=== PATIENT | female | born 1990 | race Caucasian/White ===

== ENCOUNTER 2019-08-29 23:57 | Emergency (ER) | payer MEDICAID, SELFPAY ==
[2019-08-30 00:36] VITALS: BP 94/55; PULSE 78; RESP 16; TEMP 36.6; O2SAT 96
--- NOTE | 2019-08-30 00:36 | ED_ITS ---
HPI - Headache General: Stated Complaint: MIGRAINE Time Seen by Provider: 08/30/19 00:36 Source: patient Mode of arrival: ambulatory Limitations: no limitations History of Present Illness: HPI Narrative: Patient is a 28-year-old female who presents to ED today with complaints of a migraine that began in the middle of the night. Patient states she has a history of migraine headaches. She reports nausea and vomiting x3. She has not had any fever/chills or recent illness. She states the pain is worse with light and sound. MD elicited complaint: headache and migraine Onset (ago): hour(s) Location: frontal Exacerbating factors: light and noise Relieving factors: nothing Context: occurred at rest Associated symptoms: Reports no associated symptoms; Deny chest pain, confusion, fever(s), lightheadedness, malaise, nausea, rash, syncope or vomiting Treatments prior to arrival: none Review of Systems Const: Denies: fever, chills, body aches, change in appetite, change in weight, fatigue or malaise Eyes: Reports: photophobia; Denies: change in vision, blurry vision or eye discharge ENMT: Denies: throat pain, enlarged tonsils or painful swallowing Card: Denies: chest pain, palpitations, irregular heart rhythm, lightheadedness, syncope or shortness of breath on exertion Resp: Denies: shortness of breath, productive cough or pain on inspiration GI: Denies: abdominal pain, nausea, vomiting, heartburn/indigestion or diarrhea : Denies: painful urination Musc: Denies: neck pain, back pain or joint pain Skin/Breast: Denies: rash Neuro: Reports: headache; Denies: numbness in extremities, weakness in extremities, changes in sensation, lack of coordination, frequent falls, dizziness, vertigo, confusion, slurred speech or seizure-like activity PFS ED PFSH: Social History Smoking and tobacco status: current every day smoker Alcohol intake: never Physical Exam Const: COMMON NORMALS: no apparent distress, oriented x3, no limitations, alert and well nourished HENMT: COMMON NORMALS: normocephalic and head/scalp atraumatic HEAD & SCALP: normocephalic and atraumatic MOUTH: other (Poor dentition) Eye: COMMON NORMALS: PERRL and EOMs intact bilaterally GENERAL EYE: normal appearance of both eyes PUPIL: Yes PERRL Neck/C-Spine: COMMON NORMALS: full ROM, no lymphadenopathy, supple and no meningeal signs Chest: COMMONS NORMALS: inspection of chest normal Resp: COMMON NORMALS: normal respiratory effort and clear to auscultation bilaterally AUSCULTATION: clear to auscultation bilaterally Cardio: COMMON NORMALS: regular rate and regular rhythm RATE: regular rate RHYTHM: regular rhythm GI: COMMON NORMALS: normal to inspection, nondistended, normoactive bowel sounds, soft to palpation, non-tender, no hepatosplenomegaly and no masses PALPATION: Yes soft and Yes no hepatosplenomegaly : COMMON NORMALS: Yes no CVA tenderness BLADDER/KIDNEY EXAM: Yes no CVA tenderness Back/Pelvis: COMMON NORMALS: no CVA tenderness and thoracic and lumbar spine normal to inspection Extremity: COMMON NORMALS: normal to inspection Neuro: WENDY COMA SCALE: document GCS findings [place] coma scale eye opening: Spontaneous Wendy coma scale verbal response: Orientated [place] coma scale motor response: Obey commands Wendy coma scale total score: 15 COMMON NORMALS: oriented x3, CN's II-XII intact bilaterally, moves all extremities, no focal motor deficits, no sensory deficits noted and gait normal SENSORIUM/ORIENTATION: Yes alert MENINGEAL SIGNS: Yes no meningeal signs SPEECH: speech normal GAIT: Yes normal gait Skin: COMMON NORMALS: no rashes or lesions noted GENERAL SKIN EXAM: no rashes or lesions noted MDM - Headache MDM Narrative: Medical decision making narrative: pt sleeping comfortably in NAD Discharge Plan Discharge Patient Disposition: Home, Self-Care Clinical Impression: Migraine Qualifiers: Migraine type: without aura Status migrainosus presence: without status migrainosus Intractability: not intractable Qualified Code(s): G43.009 - Migraine without aura, not intractable, without status migrainosus Condition: Stable Prescriptions: No Action No Known Home Medications RF: 0 Referrals: Daysi Hernandez MD [Primary Care Provider] - Discharge Diet: Usual diet Discharge Activity: Increase activity as tolerated Patient Instructions: Headache - Migraine (Adult), Migraine Headache (ED) Coding Level of Care Code ED Soaping Department Supervisor for Chg Fwd Exam Comprehensive
[2019-08-30] MEDS: dexamethasone 10 mg/mL INJ 6 MG IV (01:39)
[2019-08-30] MEDS: sodium chloride 0.9% 1,000 ML 999 ML IV (01:39)
[2019-08-30] MEDS: ondansetron 2 mg/ML SDV 2 mL 4 MG IVP (01:39)
[2019-08-30] MEDS: diphenhydrAMINE 50 mg/mL SDV 1mL IVP (01:40)
[2019-08-30] MEDS: ketorolac 60 mg/2 mL INJ 30 MG IVP (01:40)
[2019-08-30] MEDS: metoclopramide 5 mg/mL SDV 2 mL 10 MG IVP (03:09)
[2019-08-30 03:33] VITALS: BP 94/55; PULSE 78; RESP 16; O2SAT 96
== END 2019-08-30 03:34 | disposition home or self-care (01) ==
PROVIDERS: Emergency Provider Physician Assistant; Family Provider Family Medicine; PCP Family Medicine
DX: G43.009 Migraine without aura, not intractable, without status migrainosus (principal); F17.210 Nicotine dependence, cigarettes, uncomplicated
CPT/HCPCS: 12345; 96361; 96374; 96375; 99281; 99283; J1100; J1200; J1885; J2405; J2765; J7030

== ENCOUNTER 2019-11-08 14:52 | Emergency (ER) | payer MEDICAID, SELFPAY ==
[2019-11-08 15:01] VITALS: BP 113/60; PULSE 100; RESP 17; TEMP 36.9; O2SAT 98; BMI 26.5
[2019-11-11 09:20] LABS: Quest SARS-CoV-2 RNA NOT DETECTED (NOT DETECTED)
== END 2019-11-08 16:16 | disposition left against medical advice (07) ==
LOC: ER 15:01
PROVIDERS: Emergency Provider Nurse Practitioner Family; PCP Family Medicine
DX: Z53.21 Procedure and treatment not carried out due to patient leaving prior to being seen by health care provider (principal)
CPT/HCPCS: 87635; 99281

== ENCOUNTER 2020-11-06 21:25 | Emergency (ER) | payer MEDICAID, SELFPAY ==
[2020-11-06 21:34] VITALS: PULSE 100; RESP 18; TEMP 37.1; O2SAT 100; BMI 28.3
--- NOTE | 2020-11-06 21:54 | ED_ITS ---
HPI - General Adult General: Chief complaint: Fever Stated complaint: x4 days feeling unwell Time Seen by Provider: 11/06/20 21:29 Source: patient Mode of arrival: ambulatory Limitations: no limitations History of Present Illness: HPI narrative: Patient is a 29-year-old female who presents to ED today stating she feels flu-misael . She tells me over the last 3 to 4 days she has had low-grade fevers (highest temperature measured was 100.8) and a lack of appetite. She has not had nausea or vomiting however has experienced early satiety. She has had normal bowel movements. She does complain of some intermittent upper abdominal pains that worsen with eating. She has not had any URI symptoms. No COVID exposure. Previous abdominal surgeries include a partial hysterectomy and appendectomy. Onset (ago): day(s) Severity: moderate Pain Consistency: intermittent Relieving factors: none Exacerbating factors: eating Associated symptoms: Reports malaise; Deny chest pain, dyspnea, headache(s), nausea, rash or vomiting Review of Systems Const: Reports: fever(s) (low grade 100.8), chills, body aches, change in appetite, fatigue and malaise Eyes: Denies: change in vision Card: Denies: chest pain Resp: Denies: dyspnea, productive cough, non-productive cough or chest congestion GI: Reports: abdominal pain and early satiety; Denies: nausea, vomiting, hematemesis, coffee ground emesis, heartburn, diarrhea, constipation, rectal swelling, change in stool character or melena : Denies: flank pain, difficulty voiding, dysuria, urinary frequency or urinary urgency Musc: Denies: neck pain or back pain Skin/Breast: Denies: rash Neuro: Denies: headache(s), numbness in extremities, weakness in extremities, sensory changes or dizziness PFSH ED PFSH: Surgical History (Updated 11/06/20 @ 23:47 by CHRIS Desai) Hx of appendectomy Hx of hysterectomy Family History Denies family history of Diabetes Dementia Cancer Hypertension Social History Smoking and tobacco status: current every day smoker Alcohol intake: never Physical Exam Const: COMMON NORMALS: no acute distress, average body habitus, patient oriented x3, no limitations, healthy appearing, alert and well nourished GENERAL APPEARANCE: cooperative ORIENTATION/CONSCIOUSNESS: Yes awake, Yes oriented to person, Yes oriented to place and Yes oriented to time HENMT: COMMON NORMALS: normocephalic and atraumatic HEAD & SCALP: normal to inspection, normocephalic and atraumatic FACE & SINUS: normal facial exam TEETH & GINGIVA: Yes poor dentition THROAT: posterior oropharynx normal Eye: COMMON NORMALS: Equal, round and reactive pupils present and EOMs intact bilaterally GENERAL EYE: appearance normal, both eyes and all related structures PUPIL: Yes Equal, round and reactive pupils present Neck/C-Spine: COMMON NORMALS: full ROM, no lymphadenopathy and no meningeal signs Resp: COMMON NORMALS: normal respiratory effort and clear to auscultation bilaterally AUSCULTATION: clear to auscultation bilaterally Cardio: COMMON NORMALS: regular rate and regular rhythm RATE: regular rate RHYTHM: regular rhythm GI: COMMON NORMALS: Normal to inspection, nondistended, normoactive bowel sounds present, Soft to palpation, No hepatosplenomegaly present and no masses INSPECTION: Yes normal to inspection PALPATION: Yes Soft to palpation, Yes Tenderness to palpation present (GI) (mild throughout upper abdomen) and Yes No hepatosplenomegaly present : COMMON NORMALS: Yes no CVA tenderness BLADDER/KIDNEY EXAM: Yes no CVA tenderness Back/Pelvis: COMMON NORMALS: no CVA tenderness, thoracic and lumbar spine normal to inspection, no thoracic nor lumbar tenderness and thoraco-lumbar ROM normal Extremity: COMMON NORMALS: normal to inspection and full ROM GENERAL: Yes normal exam except as noted Neuro: REJI COMA SCALE: document GCS findings [place] coma scale eye opening: Spontaneous Reji coma scale verbal response: Orientated Reji coma scale motor response: Obey commands Reji coma scale total score: 15 COMMON NORMALS: patient oriented x3, moves all extremities, no focal motor deficits and no sensory deficits noted SENSORIUM/ORIENTATION: Yes alert, Yes oriented to person, Yes oriented to place and Yes oriented to time MENINGEAL SIGNS: Yes no meningeal signs Skin: COMMON NORMALS: no rashes or lesions noted GENERAL SKIN EXAM: no rashes or lesions noted Course Vital Signs: Vital signs: Vital Signs Temperature 98.7 F 11/06/20 21:34 Pulse Rate 90 11/06/20 23:52 Respiratory Rate 18 05/13/21 21:34 Blood Pressure 103/54 11/06/20 23:52 Pulse Oximetry 99 11/06/20 23:52 MDM - General Adult MDM Narrative: Medical decision making narrative: Patient's vital signs are stable. Her labs showing some minor elevations to her LFTs. Lipase is normal. No cholelithiasis or cholecystitis noted on ultrasound. Labs are otherwise non-c oncerning. UA has hematuria but does not overall look infected. She has no complaints of flank pain. Her right kidney looks normal on ultrasound. She clinically does not appear ill or toxic appearing. Her flu and COVID are negative. Told her viral infections can sometimes cause transient elevations to LFTs although she could also have some biliary colic. No recent tick bites. At this time recommend conservative management with strict return to ED precautions given regarding worsening abdominal pain, fevers, vomiting, flank pain, or any other concerns she might have. Recommend follow-up with PCP next week for reevaluation. Lab Data: Labs: Lab Results 11/06/20 11/06/20 11/06/20 Range/Units 21:50 21:50 22:24 WBC (4.0-10.0) 10^3/ uL RBC (4.1-5.3) 10^6/u L Hgb (11.5-15.3) g/dL Hct (37.0-47.0) % MCV (81-99) fL MCH (28.0-34.0) pg MCHC (30.0-36.0) g/dL RDW (12.1-15.1) % Plt Count (130-400) 10^3/c mm MPV (7.4-10.4) fL Neut % (Auto) % Lymph % (Auto) % [place] % (Auto) % Eos % (Auto) % Baso % (Auto) % Neut # (Auto) (1.8-7.7) 10^3/u L Lymph # (Auto) (0.8-4.8) 10^3/u L [place] # (Auto) (0.2-0.9) 10^3/u L Eos # (Auto) (0.0-0.8) 10^3/u L Baso # (Auto) (0.0-0.1) 10^3/u L Nucleated RBC % (a uto) % Nucleated RBCs # /100WBC Sodium Potassium Chloride Carbon Dioxide Anion Gap BUN Creatinine GFR Calculation Glucose Calculated Osmolal ity Calcium Total Bilirubin AST ALT Alkaline Phosphata se Total Protein Albumin Globulin Lipase HCG, Qual (Negative) Urine Color Dark yellow (Yellow) Urine Appearance Hazy A (CLEAR) Urine pH 7 (5-7) Ur Specific Gravit y 1.015 (1.005-1.030) Urine Protein Neg (Negative) Urine Glucose (UA) Norm (Normal) Urine Ketones Negative (Negative) Urine Blood 3+ H (Negative) Urine Nitrate Negative (Negative) Urine Bilirubin Neg (Negative) Urine Urobilinogen 4+ H (Negative) mg/dL Ur Leukocyte Johanna ase Negative (Negative) Urine RBC 10-15 H (0-2) /hpf Urine WBC 5-10 H (0-5) /hpf Ur Squamous Epith Cells 0-4 H (0-5) /hpf Amorphous Sediment Not Reportable Urine Bacteria 1+ H (NONE) /hpf Urine Mucus 1+ /hpf Influenza Type A A g Negative (Negative) Influenza Type B A g Negative (Negative) SARS-CoV-2 Ag (Rap id) Negative (Negative) 11/06/20 11/06/20 11/06/20 Range/Units 22:38 22:38 22:38 WBC 4.3 (4.0-10.0) 10^3/ uL RBC 4.81 (4.1-5.3) 10^6/u L Hgb 13.1 (11.5-15.3) g/dL Hct 40.1 (37.0-47.0) % MCV 83.4 (81-99) fL MCH 27.2 L (28.0-34.0) pg MCHC 32.7 (30.0-36.0) g/dL RDW 13.2 (12.1-15.1) % Plt Count 178 (130-400) 10^3/c mm MPV 10.7 H (7.4-10.4) fL Neut % (Auto) 63.3 % Lymph % (Auto) 27.2 % [place] % (Auto) 5.3 % Eos % (Auto) 3.0 % Baso % (Auto) 0.7 % Neut # (Auto) 2.72 (1.8-7.7) 10^3/u L Lymph # (Auto) 1.2 (0.8-4.8) 10^3/u L [place] # (Auto) 0.2 (0.2-0.9) 10^3/u L Eos # (Auto) 0.1 (0.0-0.8) 10^3/u L Baso # (Auto) 0.0 (0.0-0.1) 10^3/u L Nucleated RBC % (a uto) 0 % Nucleated RBCs # 0.0 /100WBC Sodium Cancelled Potassium Cancelled Chloride Cancelled Carbon Dioxide Cancelled Anion Gap Cancelled BUN Cancelled Creatinine Cancelled GFR Calculation Cancelled Glucose Cancelled Calculated Osmolal ity Cancelled Calcium Cancelled Total Bilirubin Cancelled AST Cancelled ALT Cancelled Alkaline Phosphata se Cancelled Total Protein Cancelled Albumin Cancelled Globulin Cancelled Lipase Cancelled HCG, Qual Negative (Negative) Urine Color (Yellow) Urine Appearance (CLEAR) Urine pH (5-7) Ur Specific Gravit y (1.005-1.030) Urine Protein (Negative) Urine Glucose (UA) (Normal) Urine Ketones (Negative) Urine Blood (Negative) Urine Nitrate (Negative) Urine Bilirubin (Negative) Urine Urobilinogen (Negative) mg/dL Ur Leukocyte Johanna ase (Negative) Urine RBC (0-2) /hpf Urine WBC (0-5) /hpf Ur Squamous Epith Cells (0-5) /hpf Amorphous Sediment Urine Bacteria (NONE) /hpf Urine Mucus /hpf Influenza Type A A g (Negative) Influenza Type B A g (Negative) SARS-CoV-2 Ag (Rap id) (Negative) 11/06/20 Range/Units 23:05 WBC (4.0-10.0) 10^3/ uL RBC (4.1-5.3) 10^6/u L Hgb (11.5-15.3) g/dL Hct (37.0-47.0) % MCV (81-99) fL MCH (28.0-34.0) pg MCHC (30.0-36.0) g/dL RDW (12.1-15.1) % Plt Count (130-400) 10^3/c mm MPV (7.4-10.4) fL Neut % (Auto) % Lymph % (Auto) % [place] % (Auto) % Eos % (Auto) % Baso % (Auto) % Neut # (Auto) (1.8-7.7) 10^3/u L Lymph # (Auto) (0.8-4.8) 10^3/u L [place] # (Auto) (0.2-0.9) 10^3/u L Eos # (Auto) (0.0-0.8) 10^3/u L Baso # (Auto) (0.0-0.1) 10^3/u L Nucleated RBC % (a uto) % Nucleated RBCs # /100WBC Sodium 136 Potassium 4.0 Chloride 102 Carbon Dioxide 27 Anion Gap 11.0 BUN 9 Creatinine 0.5 GFR Calculation 145.9 H Glucose 100 Calculated Osmolal ity 281 L Calcium 8.6 Total Bilirubin 0.6 AST 33 H ALT 56 H Alkaline Phosphata se 114 H Total Protein 6.7 Albumin 4.5 Globulin 2.2 Lipase 21 HCG, Qual (Negative) Urine Color (Yellow) Urine Appearance (CLEAR) Urine pH (5-7) Ur Specific Gravit y (1.005-1.030) Urine Protein (Negative) Urine Glucose (UA) (Normal) Urine Ketones (Negative) Urine Blood (Negative) Urine Nitrate (Negative) Urine Bilirubin (Negative) Urine Urobilinogen (Negative) mg/dL Ur Leukocyte Johanna ase (Negative) Urine RBC (0-2) /hpf Urine WBC (0-5) /hpf Ur Squamous Epith Cells (0-5) /hpf Amorphous Sediment Urine Bacteria (NONE) /hpf Urine Mucus /hpf Influenza Type A A g (Negative) Influenza Type B A g (Negative) SARS-CoV-2 Ag (Rap id) (Negative) Imaging Data^: CXR: Radiologist's impression: [address] [address] XRay Report Signed Patient: Dayanna Pires Unit #: [id number] : 1990 Acc t#:[id number] Age/Sex: 29 / F ADM Date: 11/06/20 Loc: ER Room/Bed: Attending Dr: Ordering Provider/Ordering MD: Iris Arshad Date of Service: 11/06/20 Procedure(s): XR chest 1V portable [id number] Accession Number(s): [id number] Report Number: [id number] PROCEDURE INFORMATION: Exam: XR Chest Exam date and time: 11/06/2020 10:00 PM Age: 29 years old Clinical indication: Fever and other: Body aches; Patient HX: Fever, body aches x4 days; Additional info: Body aches, fevers TECHNIQUE: Imaging protocol: XR of the chest. Views: 1 view. COMPARISON: No relevant prior studies available. FINDINGS: Lungs: Unremarkable. No consolidation. Pleural spaces: Unremarkable. No pleural effusion. No pneumothorax. Heart/Mediastinum: Unremarkable. No cardiomegaly. Bones/joints: Unremarkable. XR/XR chest 1V portable [id number] IMPRESSION: No acute findings. Dictated By: Aron Lyman MD Signed By: Aron Lyman MD Signed Date/Time: 11/06/202228 DD/ 27 US gallbladder: Radiologist's impression: [address] [address] Ultrasound Report Signed Patient: Dayanna Pires Unit #: [id number] : 1990 Age/Sex: 29 / F ADM Date: 11/06/20 Loc: ER Room/Bed: Attending Dr: Ordering Provider/Ordering MD: Iris Arshad Date of Service: 11/07/20 Procedure(s): US gall bladder 05997 Accession Number(s): [id number] Report Number: [id number] PROCEDURE INFORMATION: Exam: US Abdomen, Limited; Right Upper Quadrant Exam date and time: 11/07/2020 12:38 AM Age: 29 years old Clinical indication: Abdominal pain; Acute; Prior surgery; Surgery date: 6+ months; Surgery type: Appendix; Additional info: Ruq pain, elevated lfts TECHNIQUE: Imaging protocol: US abdomen. Real time ultrasound with image documentation. Limited exam focused on the right upper quadrant. COMPARISON: CT abdomen pelvis w con* [id number] 05/25/2015 10:39 PM FINDINGS: Liver: Normal. No masses. Gallbladder: The gallbladder is contracted. There is mild gallbladder wall thickening although this is likely secondary to the nondistended gallbladder. Common bile duct: Normal. No stones. No dilation. Pancreas: Visualized pancreas is unremarkable. Right kidney: Normal. No mass. No hydronephrosis. US/US gall bladder [id number] IMPRESSION: There are no acute abdominal findings. Dictated By: Aron Lyman MD Signed By: Aron Lyman MD Signed Date/Time: 11/07/20121 DD/ 9 Discharge Plan Discharge Patient Disposition: Home Clinical Impression: Viral infection, Biliary colic Condition: Stable Prescriptions: No Action azithromycin 250 mg tablet See Rx Instructions PO .COMPLEX Qty: 6 RF: 0 Discharge Orders: Discharge ED (Routine); Ordered 11/07/20 Ordered By: Iris Arshad Referrals: Daysi Hernandez MD [Primary Care Provider] - Patient Instructions: Abdominal Pain (ED) Activity Restrictions/Additional Instructions: As discussed you may follow-up with your primary care provider in 3 to 5 days if symptoms persist. Please return to the emergency department for worsening or uncontrollable fevers, severe abdominal pain, repetitive episodes of vomiting or diarrhea, or any other concerns you may have. I hope you begin to feel better soon. Coding Level of Care Code ED Cellars Supervisor for Chg Fwd Exam Comprehensive
--- NOTE | 2020-11-06 21:58 | XRR_ITS ---
PROCEDURE INFORMATION: Exam: XR Chest Exam date and time: 11/06/2020 10:00 PM Age: 29 years old Clinical indication: Fever and other: Body aches; Patient HX: Fever, body aches x4 days; Additional info: Body aches, fevers TECHNIQUE: Imaging protocol: XR of the chest. Views: 1 view. COMPARISON: No relevant prior studies available. FINDINGS: Lungs: Unremarkable. No consolidation. Pleural spaces: Unremarkable. No pleural effusion. No pneumothorax. Heart/Mediastinum: Unremarkable. No cardiomegaly. Bones/joints: Unremarkable. XR/XR chest 1V portable [id number] IMPRESSION: No acute findings.
[2020-11-06 22:48] LABS: Basophils % 0.7 %; Eosinophils # 0.1 10^3/uL (0.0-0.8); Hematocrit 40.1 % (37.0-47.0); Hemoglobin 13.1 g/dL (11.5-15.3); Lymphocytes # 1.2 10^3/uL (0.8-4.8); Lymphocytes % 27.2 %; Mean Corpuscular HGB Conc 32.7 g/dL (30.0-36.0); Mean Corpuscular Hemoglobin 27.2 pg (28.0-34.0); Mean Corpuscular Volume 83.4 fL (81-99); Mean Platelet Volume 10.7 fL (7.4-10.4); Monocytes # 0.2 10^3/uL (0.2-0.9); Monocytes % 5.3 %; Neutrophils # 2.72 10^3/uL (1.8-7.7); Neutrophils % 63.3 %; Nucleated Red Blood Cells % 0 %; Platelet Count 178 10^3/cmm (130-400); Red Blood Count 4.81 10^6/uL (4.1-5.3); Red Cell Distribution Width 13.2 % (12.1-15.1); White Blood Count 4.3 10^3/uL (4.0-10.0)
[2020-11-06 22:55] LABS: HCG, Serum Qual Negative (Negative)
[2020-11-06 23:04] LABS: Glucose Urine UA Norm (Normal); Ketones Urine Negative (Negative); Protein Urine Neg (Negative); Specific Gravity, Urine 1.015 (1.005-1.030); Urine Appearance Hazy (CLEAR); Urine Color Dark Yellow (Yellow); pH Urine 7 (5-7)
[2020-11-06 23:05] LABS: Add Urine Microscopic? YES; Bilirubin Urine Neg (Negative); Blood Urine 3+ (Negative); Leukocyte Esterase Urine Negative (Negative); Nitrate Urine Negative (Negative); Urobilinogen Urine 4+ mg/dL (Negative)
[2020-11-06 23:06] LABS: Squamous Epithelial Cell Urine 0-4 /hpf (0-5)
[2020-11-06 23:07] LABS: Add Urine Culture? No; Bacteria Urine 1+ /hpf; Mucus Urine 1+ /hpf
[2020-11-06 23:21] LABS: Influenza A by IFA Negative (Negative); Influenza B by IFA Negative (Negative); SARS Covid-2 Antigen Negative (Negative)
[2020-11-06 23:23] LABS: Slide Review Slide Review Perform
[2020-11-06 23:27] LABS: Alanine Aminotransferase 56 U/L (0-33); Albumin Level 4.5 g/dL (3.5-5.2); Alkaline Phosphatase 114 IU/L (35-105); Aspartate Amino Transferase 33 U/L (0-32); Blood Urea Nitrogen 9 mg/dL (6-20); Calcium 8.6 mg/dL (8.5-10.5); Carbon Dioxide 27 mmol/L (22-29); Chloride 102 mmol/L (98-107); Creatinine Clr Calc Pharmacy 158.4818; Globulin 2.2 g/dL (1.3-4.6); Glomerular Filtration Rate 145.9 mL/min (90-130); Glucose 100 mg/dL (65-115); Lipase 21 U/L (13-60); Osmolality Calculated 281 mOsm/kg (285-295); Sodium 136 mmol/L (136-145); Total Bilirubin 0.6 mg/dL (0.15-1.2); Total Protein 6.7 g/dL (6.6-8.7)
[2020-11-06 23:52] VITALS: BP 103/54; PULSE 90; O2SAT 99
--- NOTE | 2020-11-07 23:39 | USR_ITS ---
PROCEDURE INFORMATION: Exam: US Abdomen, Limited; Right Upper Quadrant Exam date and time: 11/07/2020 12:38 AM Age: 29 years old Clinical indication: Abdominal pain; Acute; Prior surgery; Surgery date: 6+ months; Surgery type: Appendix; Additional info: Ruq pain, elevated lfts TECHNIQUE: Imaging protocol: US abdomen. Real time ultrasound with image documentation. Limited exam focused on the right upper quadrant. COMPARISON: CT abdomen pelvis w con* [id number] 05/25/2015 10:39 PM FINDINGS: Liver: Normal. No masses. Gallbladder: The gallbladder is contracted. There is mild gallbladder wall thickening although this is likely secondary to the nondistended gallbladder. Common bile duct: Normal. No stones. No dilation. Pancreas: Visualized pancreas is unremarkable. Right kidney: Normal. No mass. No hydronephrosis. US/US gall bladder [id number] IMPRESSION: There are no acute abdominal findings.
== END 2020-11-07 01:02 | disposition home or self-care (01) ==
PROVIDERS: Emergency Provider Physician Assistant; PCP Family Medicine
DX: B34.9 Viral infection, unspecified (principal); K80.50 Calculus of bile duct without cholangitis or cholecystitis without obstruction; F17.210 Nicotine dependence, cigarettes, uncomplicated
CPT/HCPCS: 36415; 71045; 76705; 80053; 81001; 83690; 84703; 85025; 87426; 87804; 99283

== ENCOUNTER 2020-11-21 08:35 | Outpatient (CLI) | payer MEDICAID, SELFPAY ==
--- NOTE | 2020-11-21 08:46 | CTR_ITS ---
PROCEDURE INFORMATION: Exam: CT Abdomen And Pelvis With Contrast Exam date and time: 11/21/2020 9:00 AM Age: 30 years old Clinical indication: Abnormal findings; Abnormal radiologic finding of the abdomen; Prior surgery; Surgery date: 6+ months; Surgery type: Appy, hyst; Patient HX: Ruq mass seen on u/s; Additional info: Abd mass ruq TECHNIQUE: Imaging protocol: Computed tomography of the abdomen and pelvis with contrast. Radiation optimization: All CT scans at this facility use at least one of these dose optimization techniques: automated exposure control; mA and/or kV adjustment per patient size (includes targeted exams where dose is matched to clinical indication); or iterative reconstruction. Contrast material: OMNI 300; Contrast volume: 95 ml; Contrast route: INTRAVENOUS (IV); Other contrast: Oral, Omni 300 20ml, 20ml in 450ml water; COMPARISON: 1. CT abdomen pelvis w con* [id number] 05/25/2015 10:39 PM 2. US gall bladder [id number] 11/07/2020 12:48:38 AM RADIATION DOSE METRICS: Total DLP (mGy-cm): 1313.5 FINDINGS: Liver: The liver is homogeneous and is not enlarged. Gallbladder and bile ducts: No calcified gallstones, gallbladder mass, gallbladder wall thickening, or pericholecystic inflammation. No biliary ductal dilation. Pancreas: No pancreatic mass. No peripancreatic inflammation. No pancreatic ductal dilation. Spleen: Calcified granulomas in an enlarged spleen. Adrenal glands: No adrenal mass. Kidneys and ureters: No hydronephrosis, nephrolithiasis, or renal mass. Stomach and bowel: No bowel obstruction, colitis or diverticulitis. Appendix: Possible prior appendectomy. Intraperitoneal space: Trace fluid in the cul-de-sac likely physiologic given the patient's age and gender. Vasculature: No abdominal aortic aneurysm. The mesenteric arteries are patent. The mesenteric, portal, and hepatic veins are patent. Lymph nodes: Scattered small mesenteric lymph nodes. Urinary bladder: No urinary bladder calculus or wall thickening. Reproductive: There is a right ovarian corpus luteal cyst. Interval hysterectomy. Bones/joints: No acute ossesous abnormality. Soft tissues: Tiny umbilical hernia containing fat. CT/CT abdomen pelvis w con* [id number] IMPRESSION: Splenomegaly, which represents an interval change since the prior comparison CT ABDOMEN/PELVIS 05/25/2015. Radiation Dose CTDIVOL = (mGy): DLP = 1313.5 (mGy-cm)
[2020-11-21] MEDS: iohexol 300 mg/mL 50 mL Btl PO (09:06)
[2020-11-21] MEDS: iohexol 300 mg/mL 100 mL Btl IV (10:22)
== END 2020-11-21 08:36 | disposition home or self-care (01) ==
LOC: RAD 08:37
PROVIDERS: PCP Family Medicine; Visit Provider Family Medicine
DX: R19.01 Right upper quadrant abdominal swelling, mass and lump (principal); R16.1 Splenomegaly, not elsewhere classified
CPT/HCPCS: 74177

== ENCOUNTER 2020-12-25 09:37 | Outpatient (CLI) | payer MEDICAID, SELFPAY ==
[2020-12-25 12:07] LABS: Basophils % 0.8 %; Eosinophils # 0.2 10^3/uL (0.0-0.8); Eosinophils % 5.8 %; Hematocrit 42.6 % (37.0-47.0); Hemoglobin 13.6 g/dL (11.5-15.3); Lymphocytes # 1.5 10^3/uL (0.8-4.8); Lymphocytes % 37.8 %; Mean Corpuscular HGB Conc 31.9 g/dL (30.0-36.0); Mean Corpuscular Volume 84.5 fL (81-99); Mean Platelet Volume 11.2 fL (7.4-10.4); Monocytes # 0.2 10^3/uL (0.2-0.9); Neutrophils % 50.1 %; Nucleated Red Blood Cells % 0 %; Platelet Count 208 10^3/cmm (130-400); Red Blood Count 5.04 10^6/uL (4.1-5.3)
[2020-12-25 12:15] LABS: LAB Peripheral Smear Sent for Review
[2020-12-25 12:45] LABS: Erythrocyte Sedimentation Rate 4 mm/hr (0-15)
[2020-12-25 12:57] LABS: Alanine Aminotransferase 23 U/L (0-33); Albumin Level 4.4 g/dL (3.5-5.2); Alkaline Phosphatase 59 IU/L (35-105); Anion Gap 10.2 (5-19); Aspartate Amino Transferase 21 U/L (0-32); Blood Urea Nitrogen 10 mg/dL (6-20); C Reactive Protein 0.5 mg/L (0.0-4.9); Calcium 8.8 mg/dL (8.5-10.5); Carbon Dioxide 27 mmol/L (22-29); Chloride 103 mmol/L (98-107); Glomerular Filtration Rate 144.9 mL/min (90-130); Glucose 81 mg/dL (65-115); Lactate Dehydrogenase 186 U/L (135-214); Osmolality Calculated 280 mOsm/kg (285-295); Potassium 4.2 mmol/L (3.5-5.1); Sodium 136 mmol/L (136-145); Thyroid Stimulating Hormone 0.64 uIU/mL (0.27-4.20); Total Bilirubin 0.5 mg/dL (0.15-1.2); Total Protein 6.4 g/dL (6.6-8.7); Vitamin B12 316 pg/mL (232-1245)
[2020-12-25 13:41] LABS: Hepatitis A Antibody IgM Non-Reactive (Nonreactive); Hepatitis B Core AB, Total Non-Reactive (Nonreactive); Hepatitis B Surface AB 83.1 (11.5-1000); Hepatitis C Virus Antibody Non-Reactive (Nonreactive)
--- NOTE | 2020-12-25 14:20 | ONC CON_ITS ---
Dr. Dsouza New Patient Note Patient: Dayanna Pires Unit #: [id number]: 1990 Dicatated By: Roshan Dsouza M.D.Date of Visit: Dec 25, 2020 Onc MED New Patient/Consult Referring Physician: Daysi Hernandez Chief Complaint: Splenomegaly. History of Present Illness: This is a 30-year-old woman with CT evidence of an enlarged spleen. On 11/06/2020 she was seen in the emergency room with a 4-day history of flulike symptoms, including low-grade fever, anorexia, and abdominal pain. The COVID-19 rapid test was negative, and she also tested negative for influenza a and B. Her liver enzymes were noted to be slightly elevated. Her gallbladder ultrasound showed mild gallbladder wall thickening felt to be likely due to the gallbladder being contracted. There were no acute abdominal findings noted. She had a follow-up visit with Dr. Hernandez on 11/10/2020. She continued to have right upper quadrant abdominal pain and a repeat gallbladder ultrasound on 11/12/2020 showed normal gallbladder. That study did show a hypoechoic masslike structure adjacent to the right lobe of the liver measuring 4.6 x 6.6 x 3.3 cm, etiology of which was uncertain. On further evaluation with CT abdomen/pelvis on 11/21/2020 the liver had a homogeneous appearance and it was not enlarged. There was no evidence of gallstones, gallbladder mass, gallbladder wall thickening, or pericholecystic inflammation, and there was no biliary ductal dilatation noted. The pancreas appeared normal. There were no other acute findings, but the spleen was noted to have shown interval enlargement compared to a prior CT from April 2015. She is seen now in regard to the enlarged spleen. In reviewing her records in [facility], she previously had longstanding issues with pelvic pain which eventually culminated in a vaginal hysterectomy/bilateral salpingectomy in November 2017. She had undergone diagnostic laparoscopy on 2 occasions prior to that. Her records it indicated diagnosis of endometriosis, but there was no evidence of that or other pathology in the hysterectomy specimen. Her medical illnesses have otherwise been limited to chronic migraine and chronic anxiety. She had been prescribed omeprazole by Dr. Mary rubin in October. She has not been on any other prescription medication. In the interim, she had seen Dr. Nayak. He did not feel there was any evidence of gallbladder disease. She says she feels good generally, but she has continued to have pain in her right upper quadrant area which typically starts about 10 to 15 minutes after eating. She describes it as a stabbing pain lasting 10 to 15 minutes. She sometimes has nausea, she has had no other associated GI symptoms. She does complain that she does not have any energy and that she feels tired all the time. She is doing some housework and she is caring for 3 children. Her ECOG score is 1. She says her appetite has gone downhill she has had a weight loss of about 5 pounds. She has not had fever. Recently she has been having some hot flashes and sweating at night. She has no shortness of breath, cough, or chest pain. She has no complaints. She has no significant joint or bone pain. She has headaches at least 2 or 3 times a week, but that is chronic. She has been managing it with ibuprofen or Excedrin. She does not complain of dizziness, and she has no focal neurologic symptoms. She does have some anxiety and depression. Lately she has been having difficulty sleeping. Past Medical History: Her medical history includes anxiety and migraine headaches. Past Surgical History: Her surgical/procedural history includes appendectomy, diagnostic laparoscopy in 2008 and in 2015, laparoscopic assisted vaginal hysterectomy and bilateral salpingectomy in 2018, and tubal ligation in 2012. Medications: This patient reports not taking external medications. Allergies: Penicillins Social History: Ms. Pires has a life partner. She has history of smoking 1 pack of cigarettes daily for 13 years. She has had some alcohol use in the past, but never heavy and none in the past 5 to 6 years. She denies illicit drug use. Family History: Both parents are living. She does not know her father's medical history. Her mother has diabetes and epilepsy and she has been treated for breast cancer. One brother is in good health. Her paternal grandmother and several paternal uncles had lung cancer. Review Of Symptoms: Constitutional - She generally feels fatigued. She has no energy, first noticed about a month ago. She reports that her activity level has decreased significantly over the past month. She is able to do some very light housework and is the primary caregiver to her children. Her appetite has decreased and her weight is down some. No fevers. She has some hot flashes and sweating at night. ECOG score is 1, Eyes - No change in vision, ENMT - No hearing loss or tinnitus. No sinus congestion/drainage. No mouth sores. No sore throat or difficulty swallowing, Hematologic/Lymphatic - No abnormal bruising or bleeding, Respiratory - No shortness of breath. No cough. No pleuritic pain or hemoptysis, Cardiovascular - No angina pain. No palpitations, Gastrointestinal - She sometimes has nausea. No heartburn or acid reflux. No diarrhea or constipation. No blood in the stool or black stools. She has abdominal pain after eating, mainly in the right upper quadrant area, Genitourinary (F) - No dysuria or hematuria. No urinary frequency. No urgency or incontinence, Musculoskeletal - No joint or bone pain, Integumentary - No skin eruption, Neurologic - She has chronic headaches that are adequately managed with Excedrine. No dizziness. No numbness or tingling. No other focal neurologic symptoms, Psychiatric - She has anxiety and depression. She does not sleep well. Vital Signs: Performed on Dec 25, 2020 10:10: 0, 27.05, 1.77 sq.m, 64 in, 98 %, 73 /min, 16 /min, 103/67 mm(hg), 97.6 F (LOW), and 157.6 lbs (HIGH). Physical Examination: Constitutional - She appears to be in good general health, Eyes - Sclerae nonicteric. Conjunctivae clear, ENMT - No lesions noted in the oral cavity, Neck - No mass or thyromegaly, Hematologic/Lymphatic - No cervical, clavicular, or axillary adenopathy, Respiratory - Lungs are clear with good air movement bilaterally, Cardiovascular - Heart rhythm is regular. There is no murmur, gallop, or rub noted, Abdomen - Soft. Her pain localizes to the medial right upper quadrant area, but she is not tender. Liver is not enlarged. Spleen is not palpable. There is no abdominal mass or ascites noted and there is no inguinal adenopathy, Back/Spine - No spine or CVA tenderness noted, Extremities - No edema. Pedal pulses are palpable bilaterally, Integumentary - No rashes. No suspicious skin lesions noted, Neurologic - No focal neurologic deficits noted. Problem List: 1. Patient with CT evidence of interval enlargement of the spleen compared to her prior CT from April 2015. The cause/clinical significance is uncertain. 2. She has been having postprandial abdominal pain in the right upper quadrant. A specific cause has not been determined. 3. Chronic migraine. 4. Chronic anxiety. Problems Addressed with this Encounter and Plan: Patient with CT evidence of interval enlargement of the spleen compared to her prior CT from April 2015. The cause/clinical significance is uncertain. The main concern would be the possibility of underlying occult liver disease. An underlying primary hematologic disorder is another consideration, though I do not see any evidence for that clinically. She will have additional laboratory studies today to include CBC, comprehensive metabolic profile, sed rate and CRP level, LDH level, TSH level, and a comprehensive hepatitis profile. I also will review the blood smear and I will review the CT and ultrasound studies with the radiologist. She will have further evaluation as indicated. Signed By: Roshan Dsouza M.D. <<Signature on File>>
[2020-12-25 15:11] LABS: Hepatitis B Surface Antigen Non-Reactive (Nonreactive)
[2020-12-25 16:45] LABS: Iron 74 ug/dL (37-145); Percent Saturation 25.5 % (20-50); Total Iron Binding Capacity 290 mcg/dl; Unsaturated Iron Binding 216 ug/dL (112-347)
== END 2020-12-25 09:38 | disposition home or self-care (01) ==
PROVIDERS: PCP Family Medicine; Visit Provider Internal Medicine Medical Oncology
DX: R16.1 Splenomegaly, not elsewhere classified (principal); R10.11 Right upper quadrant pain; G43.709 Chronic migraine without aura, not intractable, without status migrainosus; F41.9 Anxiety disorder, unspecified; Z79.899 Other long term (current) drug therapy
CPT/HCPCS: 36415; 80053; 82607; 83540; 83550; 83615; 84443; 85025; 85651; 86140; 86705; 86706; 86709; 86803; 87340; 99204

== ENCOUNTER 2021-11-12 12:57 | Emergency (ER) | payer MEDICAID, SELFPAY ==
[2021-11-12 13:01] VITALS: BP 111/76; PULSE 90; RESP 18; TEMP 36.6; O2SAT 99
[2021-11-12 13:35] VITALS: BP 111/76; PULSE 90; RESP 18; TEMP 36.6; O2SAT 99
--- NOTE | 2021-11-12 13:40 | ED_ITS ---
HPI - Back Pain/Injury General: Chief Complaint: Back Pain/Injury Stated Complaint: Back pain Time Seen by Provider: 11/12/21 13:15 Source: patient Mode of arrival: ambulatory Limitations: no limitations History of Present Illness: 30-year-old female presents emergency room with complaint of low back pain. It does not radiate into her legs. she works standing for long periods of time in same position. She noticesor that if she is able to get around and walk some the discomfort is better, but if she has to stand at the [employer] where she works for long period of time is much worse. MD elicited complaint: back pain Pertinent past history: prior back pain Onset (ago): day(s) Timing: constant Severity: moderate Quality: dull, aching and throbbing Location: lumbar spine Radiation: none Relieving factors: none Associated symptoms: Reports difficulty walking; Deny abdominal pain, arthralgias, chills, change in bowel habits, dysuria, fatigue, fecal incontinence, fever(s), hematuria, myalgias, nausea, numbness, syncope, tingling/numbness/burning, urinary frequency, urinary urgency, vomiting or weakness Review of Systems Const: Denies: fever(s), chills or fatigue Card: Denies: syncope GI: Denies: abdominal pain, nausea, vomiting, fecal incontinence or change in bowel habits : Denies: dysuria, urinary urgency or hematuria Neuro: Reports: difficulty walking [facility] ED PFSH: Surgical History Hx of appendectomy Hx of hysterectomy Family History Denies family history of Diabetes Dementia Cancer Hypertension Social History Smoking and tobacco status: current every day smoker Alcohol intake: never Physical Exam Const: COMMON NORMALS: no acute distress GENERAL APPEARANCE: cooperative and comfortable ORIENTATION/CONSCIOUSNESS: Yes awake, Yes oriented to person, Yes oriented to place and Yes oriented to time HENMT: COMMON NORMALS: normocephalic, atraumatic and hearing grossly normal bilaterally HEAD & SCALP: normocephalic and atraumatic Neck/C-Spine: COMMON NORMALS: no JVD Resp: COMMON NORMALS: normal respiratory effort, No retractions, No use of accessory muscles and clear to auscultation bilaterally AUSCULTATION: clear to auscultation bilaterally Cardio: COMMON NORMALS: no JVD, regular rate, regular rhythm and No murmurs present (Cardio) RATE: regular rate RHYTHM: regular rhythm Extremity: COMMON NORMALS: normal to inspection, capillary refill normal, no clubbing, cyanosis or edema, no calf tenderness and no pedal edema Neuro: SENSORIUM/ORIENTATION: Yes oriented to person, Yes oriented to place and Yes oriented to time SENSORY EXAM: No sensory level loss detected MOTOR EXAM: 5/5 motor strength present throughout DEEP TENDON REFLEXES: Right patellar reflex intensity grade: 2+ and Left patellar reflex intensity grade: 2+ Skin: COMMON NORMALS: no rashes or lesions noted GENERAL SKIN EXAM: no rashes or lesions noted Course Vital Signs: Vital signs: Vital Signs Temperature 97.8 F 11/12/21 13:35 Pulse Rate 90 11/12/21 13:35 Respiratory Rate 18 11/12/21 13:35 Blood Pressure 111/76 11/12/21 13:35 Pulse Oximetry 99 11/12/21 13:35 MDM - Back Pain/Injury Medical Decision Making Steroid taper diclofenac tizanidine as needed work restrictions recommend sitting for 15 minutes and an hour if she can sit [place] rest I think that will help she should also use an antifatigue mat. Follow-up with primary care consider PT if persists Medical Records I reviewed the patient's medical records. Labs I reviewed the patient's lab results. Discharge Plan Discharge Patient Disposition: Home Clinical Impression: Strain of lumbar region Condition: Stable Prescriptions: New prednisone 20 mg tablet 20 mg PO TID Qty: 15 0RF Rx Instructions: 1 p.o. 3 times daily x3 days, 1 p.o. twice daily x2 days, 1 p.o. daily x2 days diclofenac sodium 75 mg tablet,delayed release (DR/EC) 75 mg PO Q12H PRN (Reason: pain) Qty: 20 0RF tizanidine 4 mg capsule 4 mg PO Q6H PRN (Reason: muscle spasticity) Qty: 20 0RF Rx Instructions: do not exceed 3 doses per 24 hrs No Action azithromycin 250 mg tablet See Rx Instructions PO .COMPLEX Qty: 6 0RF Rx Instructions: take 500 mg today (day 1), then 250 mg for 4 days (days 2-5) PO Discharge Orders: Discharge ED (Routine); Ordered 11/12/21 Ordered By: Giorgio Recio Referrals: Daysi Hernandez MD [Primary Care Provider] - Discharge Diet: Usual diet Discharge Activity: Limit activity as instructed Patient Instructions: Opioid Safety Activity Restrictions/Additional Instructions: Follow-up with primary care if symptoms persist. 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
[2021-11-12] MEDS: orphenadrine 30 mg/mL Inj 2 mL 60 MG IVP (14:21)
[2021-11-12] MEDS: dexamethasone 10 mg/mL INJ IVP (14:21)
[2021-11-12] MEDS: ketorolac 30 mg/mL INJ IVP (14:21)
[2021-11-12] MEDS: morphine 4 mg/mL SDV 1 mL IVP (14:21)
[2021-11-12 14:34] VITALS: BP 111/76; PULSE 90; RESP 18; TEMP 36.6; O2SAT 99
== END 2021-11-12 14:36 | disposition home or self-care (01) ==
PROVIDERS: Emergency Provider Family Medicine; PCP Family Medicine
DX: S39.012A Strain of muscle, fascia and tendon of lower back, initial encounter (principal); X58.XXXA Exposure to other specified factors, initial encounter; F17.200 Nicotine dependence, unspecified, uncomplicated
CPT/HCPCS: 96374; 96375; 99284; J1100; J1885; J2270; J2360

== ENCOUNTER 2022-03-23 09:13 | Emergency (ER) | payer MEDICAID, SELFPAY ==
[2022-03-23 09:18] VITALS: BP 127/66; PULSE 100; RESP 18; TEMP 36.9; O2SAT 98; BMI 28.3
[2022-03-23 09:27] VITALS: BP 127/66; PULSE 75; O2SAT 98
--- NOTE | 2022-03-23 09:29 | PC.NURSE ---
LKWT 0900 this morning. Mother noticed speech being slurred and advised the patient to come to ED.
--- NOTE | 2022-03-23 09:37 | CT_ITS ---
WS: [id number] CT NECK WITH CONTRAST HISTORY: dysphagia TECHNIQUE: Contiguous 2 mm axial images are performed through the neck with intravenous contrast. Sag ittal and coronal reformats are also submitted. All CT scans at [facility] use at least one o f these dose optimization techniques: automated exposure control; mA and/or kV adjustment per patient size (includes targeted exams where dose is matched to clinical indication); or iterative reconstruc tion. CONTRAST: CONTRAST: Omnipaque 350; 95 mL IV. DLP: 1071.35 mGy.cm COMPARISON: None available. Significant motion artifact due to swallowing during this examination. The nasopharyngeal, oropharyng eal and laryngeal soft tissues are limited by this swallowing artifact. No obvious stenosis or narrow ing of the airway. Mildly prominent nasopharyngeal soft tissue is symmetric bilaterally. Tongue base is limited by the motion artifact. No midline shift of structures. Limited evaluation of the torus tubarius and fossa of Rosenmuller and parapharyngeal fat by motion se condary to swallowing. Small hypervascular 9 mm RIGHT level IIa lymph node. There are additional smaller lymph nodes along t he cervical chains. Mildly hypervascular 11 mm lymph node RIGHT paratracheal region. Thyroid gland and salivary glands are normally enhancing with no masses. No osseous abnormalities. Visualized portions of the skull base demonstrate no abnormalities. Orbits and globes are within norm al limits. No soft tissue masses. Visualized paranasal sinuses and mastoid air cells are normal. Lung apices are clear. CT/CT neck w con* [id number] IMPRESSION: 1. Motion artifact due to swallowing in the upper airway. 2. Mildly prominent nasopharyngeal soft tissue. May be related to an infection or allergies. 3. Minimally prominent, hypervascular RIGHT level IIa and RIGHT paratracheal l ymph nodes. These may be reactive. No laryngeal mass.
--- NOTE | 2022-03-23 09:38 | CT_ITS ---
WS: [id number] CT HEAD NONCONTRAST HISTORY: Symptoms of Acute Stroke TECHNIQUE: Contiguous axial imaging performed through the brain in 3.0 mm imaging. Bone and soft tiss ue windows. Sagittal and coronal reformats reviewed. All CT scans at [facility] use at least one of these dose optimization techniques: automated exposure control; mA and/or kV adjustment per pa tient size (includes targeted exams where dose is matched to clinical indication); or iterative recon struction. DLP: 1071.35 mGy.cm COMPARISON: None available. No acute intracranial hemorrhage, midline shift or mass effect. No atrophy or prior infarcts or herniation. Ventricles: Normal size with no hydrocephalus. Paranasal sinuses: As visualized are clear. Mastoid air cells: Well pneumatized. Calvarium and scalp: Skull is intact with no soft tissue edema or swelling. CT/CT head wo con* [id number] IMPRESSION: Negative head CT.
--- NOTE | 2022-03-23 09:40 | ED_ITS ---
HPI - Neuro Symptoms/Deficit General: Chief Complaint: Neuro Symptoms/Deficit Stated Complaint: Possible stroke Time Seen by Provider: 03/23/22 09:34 Source: patient Mode of arrival: ambulatory History of Present Illness: 31-year-old female who presents emergency room with difficulty speaking. She had difficulty with enunciating her words. No other weakness no other signs denies headache no trauma no fall she denies any sore throat she feels like it is a little bit difficult to swallow she has very poor dentition. Her son is at the bedside she is quick to offer that he is homeschooled via computer. This symptom onset was at around 9:00 this morning while she was on the phone with her mother. She denies any other recent illness no previous history of stroke. No other family members besides her son are currently present. Onset (ago): minute(s) (40) Location: speech History of same: No Severity: mild Relieving factors: none Exacerbating factors: none Context: gradual onset Associated symptoms: Deny chest pain, cough, diaphoresis, fevers/chills, headache(s), anorexia, malaise, nausea, seizures, short of breath, syncope, tingling, vertigo, vomiting or weakness Treatments Prior to Arrival: none Review of Systems Const: Denies: malaise or diaphoresis ENMT: Denies: throat pain, ear or mastoid pain, nasal discharge or nasal congestion Card: Denies: chest pain or syncope Resp: Denies: dyspnea, productive cough or non-productive cough GI: Denies: abdominal pain, nausea or vomiting : Denies: flank pain, difficulty voiding, dysuria, urinary frequency or urinary urgency Skin/Breast: Denies: rash or pruritus Neuro: Denies: headache(s), numbness in extremities, weakness in extremities or vertigo PFSH ED PFSH: Surgical History Hx of appendectomy Hx of hysterectomy Family History Denies family history of Diabetes Dementia Cancer Hypertension Social History Smoking and tobacco status: current every day smoker Alcohol intake: never NIH stroke score NIHSS: Level Of Consciousness - 1a: 0 Level Of Consciousness Questions - 1b: Both Correct Level Of Consciousness Commands - 1c: Both Correct Best Gaze - 2: Normal Visual Blackman - 3: No Visual Loss Facial Palsy - 4: Normal Motor Arm Right - 5: No Drift Motor Arm Left - 5: No Drift Motor Leg Right - 6: No Drift Motor Leg Left - 6: No Drift Limb Ataxia - 7: Absent Sensory - 8: Normal Best Language - 9: No Aphasia Dysarthia - 10: Mild/Moderate Dysarthia Extinction And Inattention - 11: 0 Score: Total Score: 1 Physical Exam Const: GENERAL APPEARANCE: cooperative and comfortable ORIENTATION/CONSCIOUSNESS: Yes awake, Yes oriented to person, Yes oriented to place and Yes oriented to time HENMT: COMMON NORMALS: normocephalic, atraumatic and hearing grossly normal b ilaterally HEAD & SCALP: normocephalic and atraumatic Resp: COMMON NORMALS: normal respiratory effort, No retractions, No use of accessory muscles and clear to auscultation bilaterally AUSCULTATION: clear to auscultation bilaterally Cardio: COMMON NORMALS: regular rate, regular rhythm and No murmurs present (Cardio) RATE: regular rate RHYTHM: regular rhythm GI: COMMON NORMALS: Soft to palpation and No hepatosplenomegaly present AUSCULTATION: Yes normoactive bowel sounds PALPATION: Yes Soft to palpation, No Tenderness to palpation present (GI), No Guarding due to palpation present (GI) and Yes No hepatosplenomegaly present Extremity: COMMON NORMALS: normal to inspection, capillary refill normal, no clubbing, cyanosis or edema, no calf tenderness and no pedal edema Neuro: SENSORIUM/ORIENTATION: Yes oriented to person, Yes oriented to place and Yes oriented to time Skin: COMMON NORMALS: no rashes or lesions noted GENERAL SKIN EXAM: no rashes or lesions noted Course Vital Signs: Vital signs: Vital Signs Temperature 98.5 F 03/23/22 09:18 Pulse Rate 71 03/23/22 11:30 Respiratory Rate 18 03/23/22 09:18 Blood Pressure 90/46 03/23/22 11:30 Pulse Oximetry 99 03/23/22 11:30 Oxygen Delivery Me thod 03/23/22 11:30 MDM - Neuro Symptoms/Deficit Medical Decision Making Patient has upper respiratory symptoms CT of the head and CT of the neck are negative. Think a lot of this speech difficulty is due to her upper respiratory symptoms. Otherwise neurologically she is completely intact. Reviewed findings and reviewed labs as found in the chart discussed with the patient will discharge home return if is further problems. Medical Records I reviewed the patient's medical records. Lab Data I reviewed the patient's lab results. : 03/23/22 10:10 03/23/22 10:[address] 03/23/22 09:37 IMPRESSION: 1. Motion artifact due to swallowing in the upper airway. 2. Mildly prominent nasopharyngeal soft tissue. May be related to an infection or allergies. 3. Minimally prominent, hypervascular RIGHT level IIa and RIGHT paratracheal lymph nodes. These may be reactive. No laryngeal mass. Head CT 03/23/22 09:38 IMPRESSION: Negative head CT. Laboratory Results WBC 4.0 10^3/uL (4.0-10.0) 03/23/22 10:10 RBC 4.18 10^6/uL (4.1-5.3) 03/23/22 10:10 Hgb 11.5 g/dL (11.5-15.3) 03/23/22 10:10 Hct 34.8 % (37.0-47.0) L 03/23/22 10:10 MCV 83.3 fl (81-99) 03/23/22 10:10 MCH 27.5 pg (28.0-34.0) L 03/23/22 10:10 MCHC 33.0 g/dL (30.0-36.0) 03/23/22 10:10 RDW 13.0 % (12.1-15.1) 03/23/22 10:10 Plt Count 211 10^3/cmm (130-400) 03/23/22 10:10 MPV 10.4 fL (7.4-10.4) 03/23/22 10:10 Neut % (Auto) 59.9 % 03/23/22 10:10 Lymph % (Auto) 30.7 % 03/23/22 10:10 [place] % (Auto) 5.3 % 03/23/22 10:10 Eos % (Auto) 3.0 % 03/23/22 10:10 Baso % (Auto) 0.8 % 03/23/22 10:10 Neut # (Auto) 2.38 10^3/uL (1.8-7.7) 03/23/22 10:10 Lymph # (Auto) 1.2 10^3/uL (0.8-4.8) 03/23/22 10:10 [place] # (Auto) 0.2 10^3/uL (0.2-0.9) 03/23/22 10:10 Eos # (Auto) 0.1 10^3/uL (0.0-0.8) 03/23/22 10:10 Baso # (Auto) 0.0 10^3/uL (0.0-0.1) 03/23/22 10:10 Nucleated RBC % (auto) 0 % 03/23/22 10:10 Nucleated RBCs # 0.0 /100WBC 03/23/22 10:10 Sodium 135 mmol/L (136-145) L 03/23/22 10:10 Potassium 3.9 mmol/L (3.5-5.1) 03/23/22 10:10 Chloride 103 mmol/L (98-107) 03/23/22 10:10 Carbon Dioxide 24 mmol/L (22-29) 03/23/22 10:10 Anion Gap 11.9 (5-19) 03/23/22 10:10 BUN 5 mg/dL (6-20) L 03/23/22 10:10 Creatinine 0.5 mg/dL (0.5-0.9) 03/23/22 10:10 GFR Calculation 143.9 mL/min (90-130) H 03/23/22 10:10 Glucose 86 mg/dL (65-115) 03/23/22 10:10 Calculated Osmolality 277 mOsm/kg (285-295) L 03/23/22 10:10 Calcium 8.4 mg/dL (8.5-10.5) L 03/23/22 10:10 Total Bilirubin 0.4 mg/dL (0.15-1.2) 03/23/22 10:10 AST 15 U/L (0-32) 03/23/22 10:10 ALT 13 U/L (0-33) 03/23/22 10:10 Alkaline Phosphatase 54 U/L (35-105) 03/23/22 10:10 Total Protein 5.6 g/dL (6.6-8.7) L 03/23/22 10:10 Albumin 3.8 g/dL (3.5-5.2) 03/23/22 10:10 Globulin 1.8 g/dL (1.3-4.6) 03/23/22 10:10 Urine Color Yellow (Yellow) 03/23/22 10:30 Urine Appearance Sl hazy (CLEAR) 03/23/22 10:30 Urine pH 7 (5-7) 03/23/22 10:30 Ur Specific [place] 1.005 (1.005-1.030) 03/23/22 10:30 Urine Protein Neg (Negative) 03/23/22 10:30 Urine Glucose (UA) Norm (Normal) 03/23/22 10:30 Urine Ketones Negative (Negative) 03/23/22 10:30 Urine Blood Neg (Negative) 03/23/22 10:30 Urine Nitrate Positive (Negative) H 03/23/22 10:30 Urine Bilirubin Neg (Negative) 03/23/22 10:30 Urine Urobilinogen Norm mg/dL (Negative) 03/23/22 10:30 Ur Leukocyte Esterase Negative (Negative) 03/23/22 10:30 Urine RBC 0-4 /hpf (0-2) H 03/23/22 10:30 Urine WBC 0-4 /hpf (0-5) H 03/23/22 10:30 Ur Squamous Epith Cells 25-40 /hpf (0-5) H 03/23/22 10:30 Amorphous Sediment Not Reportable 03/23/22 10:30 Urine Bacteria 4+ /hpf (NONE) H 03/23/22 10:30 Urine Opiates Screen Negative ng/mL (Negative) 03/23/22 10:30 Ur Barbiturates Screen Negative ng/mL (Negative) 03/23/22 10:30 Ur Phencyclidine Scrn Negative ng/mL (Negative) 03/23/22 10:30 Ur Amphetamines Screen Negative ng/mL (Negative) 03/23/22 10:30 U Benzodiazepines Scrn Negative ng/mL (Negative) 03/23/22 10:30 Urine Cocaine Screen Negative ng/mL (Negative) 03/23/22 10:30 U Marijuana (THC) Screen Negative ng/mL (Negative) 03/23/22 10:30 Discharge Plan Discharge Patient Disposition: Home Clinical Impression: Pharyngitis Condition: Stable Prescriptions: New prednisone 20 mg tablet 20 mg PO TID Qty: 15 0RF Rx Instructions: 1 p.o. 3 times daily x3 days, 1 p.o. twice daily x2 days, 1 p.o. daily x2 days Discharge Orders: Discharge ED (Routine); Ordered 03/23/22 Ordered By: Giorgio Recio Referrals: Daysi Hernandez MD [Primary Care Provider] - Discharge Diet: Usual diet Discharge Activity: Increase activity as tolerated Patient Instructions: Opioid Safety, Pain Management Activity Restrictions/Additional Instructions: Follow-up with primary care doctor if not improving over the next week. Start the steroids and antibiotics today. Coding Level of Care Code ED Post Doctoral Fellow for Chg Fwd Exam Detailed
[2022-03-23] MEDS: iohexol 350 mg/mL 100 mL Btl IV (10:10)
--- NOTE | 2022-03-23 10:12 | ECG_ITS ---
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 Measurements Intervals Rentz Rate: 64 P: 44 CA: 172 QRS: 37 QRSD: 85 T: 53 QT: 390 QTc: 402 Interpretive Statements SINUS RHYTHM WITH SINUS ARRHYTHMIA LOW QRS VOLTAGE IN PRECORDIAL LEADS [QRS DEFLECTION < 1.0 mV IN CHEST LEADS] SEPTAL MYOCARDIAL INFARCTION , OF INDETERMINATE AGE [40+ ms Q WAVE IN V1/V2] No previous ECG available for comparison Electronically Signed On 03-23-2022 12:17:43 CDT by Staci Li M.D. [id number]
[2022-03-23 10:25] LABS: Basophils % 0.8 %; Eosinophils # 0.1 10^3/uL (0.0-0.8); Hematocrit 34.8 % (37.0-47.0); Hemoglobin 11.5 g/dL (11.5-15.3); Lymphocytes # 1.2 10^3/uL (0.8-4.8); Lymphocytes % 30.7 %; Mean Corpuscular Hemoglobin 27.5 pg (28.0-34.0); Mean Corpuscular Volume 83.3 fl (81-99); Mean Platelet Volume 10.4 fL (7.4-10.4); Monocytes # 0.2 10^3/uL (0.2-0.9); Monocytes % 5.3 %; Neutrophils # 2.38 10^3/uL (1.8-7.7); Neutrophils % 59.9 %; Nucleated Red Blood Cells % 0 %; Platelet Count 211 10^3/cmm (130-400); Red Blood Count 4.18 10^6/uL (4.1-5.3)
[2022-03-23 10:27] VITALS: BP 113/66; PULSE 71; O2SAT 98
[2022-03-23 10:41] LABS: Alanine Aminotransferase 13 U/L (0-33); Albumin Level 3.8 g/dL (3.5-5.2); Alkaline Phosphatase 54 U/L (35-105); Anion Gap 11.9 (5-19); Aspartate Amino Transferase 15 U/L (0-32); Blood Urea Nitrogen 5 mg/dL (6-20); Calcium 8.4 mg/dL (8.5-10.5); Carbon Dioxide 24 mmol/L (22-29); Chloride 103 mmol/L (98-107); Creatinine Clr Calc Pharmacy 155.6263; Globulin 1.8 g/dL (1.3-4.6); Glomerular Filtration Rate 143.9 mL/min (90-130); Glucose 86 mg/dL (65-115); Osmolality Calculated 277 mOsm/kg (285-295); Potassium 3.9 mmol/L (3.5-5.1); Sodium 135 mmol/L (136-145); Total Bilirubin 0.4 mg/dL (0.15-1.2); Total Protein 5.6 g/dL (6.6-8.7)
[2022-03-23 10:59] LABS: Add Urine Culture? No; Add Urine Microscopic? YES; Bacteria Urine 4+ /hpf; Bilirubin Urine Neg (Negative); Blood Urine Neg (Negative); Glucose Urine UA Norm (Normal); Ketones Urine Negative (Negative); Leukocyte Esterase Urine Negative (Negative); Nitrate Urine Positive (Negative); Protein Urine Neg (Negative); RBC Urine 0-4 /hpf (0-2); Specific Gravity, Urine 1.005 (1.005-1.030); Squamous Epithelial Cell Urine 25-40 /hpf (0-5); Urine Appearance SL Hazy (CLEAR); Urine Color Yellow (Yellow); Urobilinogen Urine Norm (Negative); WBC Urine 0-4 /hpf (0-5); pH Urine 7 (5-7)
[2022-03-23 11:00] VITALS: PULSE 73; O2SAT 99
[2022-03-23 11:02] LABS: Amphetamines Screen Urine Negative (Negative); Barbiturates Screen Urine Negative (Negative); Benzodiazepines Screen Urine Negative (Negative); Cocaine Screen Urine Negative (Negative); Opiate Screen Urine Negative (Negative); PCP Screen Urine Negative (Negative); THC Screen Urine Negative (Negative)
[2022-03-23 11:30] VITALS: BP 90/46; PULSE 71; O2SAT 99
== END 2022-03-23 12:10 | disposition home or self-care (01) ==
PROVIDERS: Emergency Provider Family Medicine; PCP Family Medicine
DX: J02.9 Acute pharyngitis, unspecified (principal); F17.200 Nicotine dependence, unspecified, uncomplicated
CPT/HCPCS: 70450; 70491; 80053; 80306; 81001; 85025; 93005; 99285; Q9967

== ENCOUNTER 2022-04-27 14:09 | Emergency (ER) | payer MEDICAID, SELFPAY ==
[2022-04-27 14:11] VITALS: BP 117/77; PULSE 92; RESP 16; TEMP 36.6; O2SAT 98; BMI 18.8
[2022-04-27 14:21] VITALS: BP 106/73; PULSE 82; RESP 16; TEMP 37.4; O2SAT 97; BMI 28.3
--- NOTE | 2022-04-27 14:49 | PC.NURSE ---
First triage documented on wrong patient.
--- NOTE | 2022-04-27 15:14 | W.ED.ABDPA2 ---
HPI - Abdominal Pain General: Chief Complaint: Abdominal Pain Stated Complaint: Hernandez sent for upper abd pain Time Seen by Provider: 04/27/22 14:17 History of Present Illness: Patient is a 31-year-old female comes to the ED with upper abdominal pain. Symptoms started yesterday. She describes the pain as a burning type pain in her stomach. Symptoms worsen after she eats and if she lays flat. Denies any fever, chills, chest pain, nausea/vomiting, bladder or bowel symptoms. Associated Symptoms: Denies chills, constipation, diarrhea, dysuria, fever(s), hematochezia, hematuria, nausea and vomiting Review of Systems Const: Denies: fever(s), chills or fatigue Eyes: Denies: change in vision or eye discomfort ENMT: Denies: throat pain, odynophagia, nasal discharge or nasal congestion Card: Denies: chest pain, palpitations, edema, swelling of feet/ankles, dyspnea on exertion or orthopnea Resp: Denies: dyspnea, productive cough or non-productive cough GI: Reports: abdominal pain (Epigastric pain); Denies: nausea, vomiting, diarrhea, constipation or hematochezia : Denies: flank pain, dysuria or hematuria Musc: Denies: neck pain, back pain or extremity swelling Skin/Breast: Denies: rash or new lesions Neuro: Denies: headache(s), numbness in extremities or weakness in extremities PFSH ED PFSH: Surgical History Hx of appendectomy Hx of hysterectomy Family History Denies family history of Diabetes Dementia Cancer Hypertension Social History Smoking and tobacco status: current every day smoker Alcohol intake: never Physical Exam Const: COMMON NORMALS: no acute distress, patient oriented x3, healthy appearing and alert GENERAL APPEARANCE: cooperative and comfortable HENMT: COMMON NORMALS: normocephalic HEAD & SCALP: normocephalic MOUTH: Normal oral and palatal mucosa present THROAT: posterior oropharynx normal and uvula midline Neck/C-Spine: COMMON NORMALS: supple GENERAL: Yes normal visual inspection Resp: COMMON NORMALS: normal respiratory effort, No retractions, No use of accessory muscles and clear to auscultation bilaterally AUSCULTATION: clear to auscultation bilaterally Cardio: COMMON NORMALS: regular rate, regular rhythm, S1 normal heart sound present, S2 normal heart sound present, No gallops present (Cardio), No clicks present (Cardio), No murmurs present (Cardio) and Peripheral pulses 2+ throughout RATE: regular rate RHYTHM: regular rhythm HEART SOUNDS: S1 normal heart sound present and S2 normal heart sound present PERIPHERAL PULSES: Peripheral pulses 2+ throughout GI: COMMON NORMALS: Normal to inspection, nondistended, normoactive bowel sounds present, Soft to palpation, non-tender and no masses PALPATION: Yes Soft to palpation : COMMON NORMALS: Yes no CVA tenderness BLADDER/KIDNEY EXAM: Yes no CVA tenderness Back/Pelvis: COMMON NORMALS: no CVA tenderness Extremity: COMMON NORMALS: normal to inspection Neuro: COMMON NORMALS: patient oriented x3 SENSORIUM/ORIENTATION: Yes alert GAIT: Yes Normal gait present Skin: GENERAL SKIN EXAM: dry skin Course Vital Signs: Vital signs: Vital Signs Temperature 99.3 F 04/27/22 14:21 Pulse Rate 78 04/27/22 16:14 Respiratory Rate 16 04/27/22 16:14 Blood Pressure 148/74 04/27/22 16:14 Pulse Oximetry 97 04/27/22 16:14 Oxygen Delivery Me thod 04/27/22 14:21 MDM - Abdominal Pain Medical Decision Making Patient is a 31-year-old female comes to the ED with epigastric abdominal pain. Symptoms started yesterday and she describes as a burning pain in her epigastric region. Symptoms worsen after she eats or lays flat. Denies any fevers, chest pain, nausea/vomiting or any other symptoms. Vitals are stable. Patient appears nontoxic and in no acute distress or pain. She has some mild epigastric region with tenderness but rest of exam is benign. CBC, CMP, lipase and UA were all unremarkable. She was given a GI cocktail here in the ED was wanting to do further testing on patient but she wanted to sign out AMA because she had to go pickle cutter her kids. Patient signed AMA form and she was discharged home with a prescription for some Pepcid. Return to ED precautions given. Patient understood and agreed with plan. Lab Data I reviewed the patient's lab results. : 04/27/22 15:18 04/27/22 15:18 Labs/Radiology: Laboratory Results WBC 6.5 10^3/uL (4.0-10.0) 04/27/22 15:18 RBC 4.95 10^6/uL (4.1-5.3) 04/27/22 15:18 Hgb 13.8 g/dL (11.5-15.3) 04/27/22 15:18 Hct 41.7 % (37.0-47.0) 04/27/22 15:18 MCV 84.2 fl (81-99) 04/27/22 15:18 MCH 27.9 pg (28.0-34.0) L 04/27/22 15:18 MCHC 33.1 g/dL (30.0-36.0) 04/27/22 15:18 RDW 13.3 % (12.1-15.1) 04/27/22 15:18 Plt Count 217 10^3/cmm (130-400) 04/27/22 15:18 MPV 10.6 fL (7.4-10.4) H 04/27/22 15:18 Neut % (Auto) 62.7 % 04/27/22 15:18 Lymph % (Auto) 27.9 % 04/27/22 15:18 [place] % (Auto) 5.4 % 04/27/22 15:18 Eos % (Auto) 3.1 % 04/27/22 15:18 Baso % (Auto) 0.6 % 04/27/22 15:18 Neut # (Auto) 4.06 10^3/uL (1.8-7.7) 04/27/22 15:18 Lymph # (Auto) 1.8 10^3/uL (0.8-4.8) 04/27/22 15:18 [place] # (Auto) 0.4 10^3/uL (0.2-0.9) 04/27/22 15:18 Eos # (Auto) 0.2 10^3/uL (0.0-0.8) 04/27/22 15:18 Baso # (Auto) 0.0 10^3/uL (0.0-0.1) 04/27/22 15:18 Nucleated RBC % (auto) 0 % 04/27/22 15:18 Nucleated RBCs # 0.0 /100WBC 04/27/22 15:18 Sodium 136 mmol/L (136-145) 04/27/22 15:18 Potassium 3.9 mmol/L (3.5-5.1) 04/27/22 15:18 Chloride 100 mmol/L (98-107) 04/27/22 15:18 Carbon Dioxide 26 mmol/L (22-29) 04/27/22 15:18 Anion Gap 13.9 (5-19) 04/27/22 15:18 BUN 11 mg/dL (6-20) 04/27/22 15:18 Creatinine 0.7 mg/dL (0.5-0.9) 04/27/22 15:18 GFR Calculation 97.6 mL/min (90-130) 04/27/22 15:18 Glucose 102 mg/dL (65-115) 04/27/22 15:18 Calculated Osmolality 282 mOsm/kg (285-295) L 04/27/22 15:18 Calcium 9.5 mg/dL (8.5-10.5) 04/27/22 15:18 Total Bilirubin 0.4 mg/dL (0.15-1.2) 04/27/22 15:18 AST 13 U/L (0-32) 04/27/22 15:18 ALT 19 U/L (0-33) 04/27/22 15:18 Alkaline Phosphatase 60 U/L (35-105) 04/27/22 15:18 Total Protein 6.4 g/dL (6.6-8.7) L 04/27/22 15:18 Albumin 4.3 g/dL (3.5-5.2) 04/27/22 15:18 Globulin 2.1 g/dL (1.3-4.6) 04/27/22 15:18 Lipase 20 U/L (13-60) 04/27/22 15:18 HCG, Qual Negative (Negative) 04/27/22 15:18 Urine Color Yellow (Yellow) 04/27/22 14:58 Urine Appearance Cloudy (CLEAR) A 04/27/22 14:58 Urine pH 5 (5-7) 04/27/22 14:58 Ur Specific [place] 1.025 (1.005-1.030) 04/27/22 14:58 Urine Protein Neg (Negative) 04/27/22 14:58 Urine Glucose (UA) Norm (Normal) 04/27/22 14:58 Urine Ketones Negative (Negative) 04/27/22 14:58 Urine Blood 2+ (Negative) H 04/27/22 14:58 Urine Nitrate Negative (Negative) 04/27/22 14:58 Urine Bilirubin Neg (Negative) 04/27/22 14:58 Urine Urobilinogen 1 mg/dL (Negative) H 04/27/22 14:58 Ur Leukocyte Esterase Negative (Negative) 04/27/22 14:58 Urine RBC 0-4 /hpf (0-2) H 04/27/22 14:58 Urine WBC 0-4 /hpf (0-5) H 04/27/22 14:58 Ur Squamous Epith Cells 0-4 /hpf (0-5) H 04/27/22 14:58 Amorphous Sediment Not Reportable 04/27/22 14:58 Urine Bacteria 4+ /hpf (NONE) H 04/27/22 14:58 Discharge Plan Discharge Patient Disposition: Left Against Medical Advice Clinical Impression: Gastritis Qualifiers: Gastritis type: unspecified gastritis Chronicity: unspecified Gastritis bleeding: presence of bleeding unspecified Qualified Code(s): K29.70 - Gastritis, unspecified, without bleeding Condition: Stable Prescriptions: New Pepcid 20 mg tablet 20 mg PO BID 42 Days Qty: 84 0RF Referrals: Daysi Hernandez MD [Primary Care Provider] - Discharge Diet: Regular Discharge Activity: Increase activity as tolerated Activity Restrictions/Additional Instructions: Follow-up with medical provider as directed. Take medications as prescribed. Return to the ER or your medical provider if condition worsens. Please read and understand discharge instructions. Thank you for choosing [facility] for your healthcare needs today. Please realize this is an emergency room and that we are providing you with a medical screening exam and this may not be complete and all inclusive of all the testing and or work up that you may need to determine your ailment or severity of your illness. It is very important that you follow up as instructed or that you return to the Emergency Department should you have concerns or if your condition changes or worsens in any way. Coding Level of Care Code ED Candy Maker for Ashleigh Fwd Exam Comprehensive
[2022-04-27 15:16] LABS: Urine Color Yellow (Yellow)
[2022-04-27 15:17] LABS: Add Urine Microscopic? YES; Bilirubin Urine Neg (Negative); Blood Urine 2+ (Negative); Glucose Urine UA Norm (Normal); Ketones Urine Negative (Negative); Leukocyte Esterase Urine Negative (Negative); Nitrate Urine Negative (Negative); Protein Urine Neg (Negative); Specific Gravity, Urine 1.025 (1.005-1.030); Urine Appearance Cloudy (CLEAR); Urobilinogen Urine 1 mg/dL (Negative); pH Urine 5 (5-7)
[2022-04-27 15:18] LABS: Add Urine Culture? Yes; Bacteria Urine 4+ /hpf; RBC Urine 0-4 /hpf (0-2); Squamous Epithelial Cell Urine 0-4 /hpf (0-5); WBC Urine 0-4 /hpf (0-5)
[2022-04-27 15:24] VITALS: BP 148/74; PULSE 78
[2022-04-27] MEDS: lidocaine 2% viscous 15 ML, aluminum-mag hydrox-simethicon 30 ML, sucralfate oral liq 1 GM PO (15:30)
[2022-04-27 15:35] LABS: Basophils % 0.6 %; Eosinophils # 0.2 10^3/uL (0.0-0.8); Eosinophils % 3.1 %; Hematocrit 41.7 % (37.0-47.0); Hemoglobin 13.8 g/dL (11.5-15.3); Lymphocytes # 1.8 10^3/uL (0.8-4.8); Lymphocytes % 27.9 %; Mean Corpuscular HGB Conc 33.1 g/dL (30.0-36.0); Mean Corpuscular Hemoglobin 27.9 pg (28.0-34.0); Mean Corpuscular Volume 84.2 fl (81-99); Mean Platelet Volume 10.6 fL (7.4-10.4); Monocytes # 0.4 10^3/uL (0.2-0.9); Monocytes % 5.4 %; Neutrophils # 4.06 10^3/uL (1.8-7.7); Neutrophils % 62.7 %; Nucleated Red Blood Cells % 0 %; Platelet Count 217 10^3/cmm (130-400); Red Blood Count 4.95 10^6/uL (4.1-5.3); Red Cell Distribution Width 13.3 % (12.1-15.1); White Blood Count 6.5 10^3/uL (4.0-10.0)
[2022-04-27 15:50] LABS: HCG, Serum Qual Negative (Negative)
[2022-04-27 15:55] LABS: Anion Gap 13.9 (5-19); Carbon Dioxide 26 mmol/L (22-29); Chloride 100 mmol/L (98-107); Potassium 3.9 mmol/L (3.5-5.1); Sodium 136 mmol/L (136-145)
[2022-04-27 15:56] LABS: Alanine Aminotransferase 19 U/L (0-33); Albumin Level 4.3 g/dL (3.5-5.2); Alkaline Phosphatase 60 U/L (35-105); Aspartate Amino Transferase 13 U/L (0-32); Blood Urea Nitrogen 11 mg/dL (6-20); Calcium 9.5 mg/dL (8.5-10.5); Globulin 2.1 g/dL (1.3-4.6); Glomerular Filtration Rate 97.6 mL/min (90-130); Glucose 102 mg/dL (65-115); Lipase 20 U/L (13-60); Osmolality Calculated 282 mOsm/kg (285-295); Total Bilirubin 0.4 mg/dL (0.15-1.2); Total Protein 6.4 g/dL (6.6-8.7)
[2022-04-27 16:14] VITALS: BP 148/74; PULSE 78; RESP 16; O2SAT 97
== END 2022-04-27 16:15 | disposition left against medical advice (07) ==
PROVIDERS: Emergency Provider Physician Assistant; PCP Family Medicine
DX: K29.70 Gastritis, unspecified, without bleeding (principal); Z53.21 Procedure and treatment not carried out due to patient leaving prior to being seen by health care provider; F17.210 Nicotine dependence, cigarettes, uncomplicated
CPT/HCPCS: 36415; 80053; 81001; 83690; 84703; 85025; 87077; 87086; 87186; 99283

== ENCOUNTER → 2023-12-13 16:54 | Outpatient (BNVA) | payer MEDICAID, SELFPAY | PROVIDERS: PCP Family Medicine; Visit Provider Nurse Practitioner | DX: R39.9 Unspecified symptoms and signs involving the genitourinary system (principal) | CPT/HCPCS: 81000 ==

== ENCOUNTER 2024-12-28 14:12 | Observation (INO) | payer MEDICAID, SELFPAY ==
[2024-12-28 14:17] VITALS: BP 115/79; PULSE 94; RESP 14; TEMP 36.8; O2SAT 100
--- OUTSIDE RECORDS SUMMARY | 2024-12-28 14:18 | XMS_ITS | Clinical Summary ---
Author Organization [facility] Address [address] [place]: Epic Prelude ADT [place] [id number] Care Team Providers Care Technology Specialist Name Role Phone Unavailable Primary Care Provider Unavailabl e Allergies Active Allergy Reactions Criticality Noted Date Comments Penicillins Anaphylaxis High 05/11/2017 Medications topiramate (Topamax) 25 mg tablet One tab at PM for one week, than one tab bid for one week, then one tab in AM, two tabs in PM for one week, then two tabs bid. 180 Tablet 3 01/04/2024 Active cloNIDine HCL (CATAPRES) 0.1 mg tablet Take 1 Tablet (0.1 mg) by mouth daily. 30 Tablet 1 01/16/2024 Active Active Problems No known active problems Encounters Date Type Department Care Team Description 12/18/2024 External Device Data [facility] ABSTRACTION Provider, Abstract 12/12/2024 External Device Data [facility] ABSTRACTION Provider, Abstract 11/20/2024 External Device Data [facility] ABSTRACTION Provider, Abstract 11/15/2024 External Device Data [facility] ABSTRACTION Provider, Abstract 11/14/2024 External Device Data [facility] ABSTRACTION Provider, Abstract 10/09/2024 External Device Data [facility] ABSTRACTION Provider, Abstract from Last 3 Months Family History Medical History Relation Name Comments No Known Problems Daughter Other Father Other Mother No Known Problems Son Relation Name Status Comments Daughter Father Mother Son Social History Tobacco Use Types Packs/Day Years Used Date Smoking Tobacco: Every Day Passive Smoke Exposure: Current Smokeless Tobacco: Never Tobacco Cessation:Ready to Q uit: Not Asked; Counseling Given: Not Answered Feeling Safe Answer Date Recorded Are you in a relationship wi th someone who hurts you emotionally and/or physically? 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 Gender Identity Not on file Sexual Orientation Not on file Last Filed Vital Signs Vital Sign Reading Time Taken Comments Blood Pressure 110/70 01/04/2024 10:22 AM CDT Pulse 79 01/04/2024 10:22 AM CDT Temperature 36.5 C (97.7 F) 12/10/2022 3:15 PM CDT Respiratory Rate 16 01/04/2024 10:22 AM CDT Oxygen Saturation 99% 01/04/2024 10:22 AM CDT Inhaled Oxygen Concentration - - Weight 57.7 kg (127 lb 3.2 oz) 01/04/2024 10:22 AM CDT Height 165.1 cm (5' 5 ) 01/04/2024 10:22 AM CDT Body Mass Index 21.17 01/04/2024 10:22 AM CDT Plan of Treatment Health Maintenance Due Date Last Done Comments DTAP/TDAP/TD VACCINES (5 - Tdap) 2001 03/07/1995, 10/12/1991, 07/09/1991, Additional history exists HPV/Cotest (21-29) 11/18/2011 CERVICAL CANCER SCREENING 2020 HPV/Cotest (30-65) 2020 PAP SMEAR 2020 INFLUENZA VACCINE (#1) 2025 08/12/2015 HEPATITIS B VACCINES Completed 10/27/1995, 03/25/1995, 02/14/1995 HPV VACCINES Aged Out No longer eligi ble based on patient's age to complete this topic Insurance [place] [address] [employer] MEDICAID Advance Directives For more information, please contact: [phone] * Full Code (Latest Code Status on File) Date Activated Date Inactivated Comments 12/10/2022 1:55 PM 12/10/2022 6:09 PM
--- OUTSIDE RECORDS SUMMARY | 2024-12-28 14:18 | XMS_ITS | Data Portability ---
Author Organization MALGORZATA Pablo Shaw [facility], Debbie, [facility] Address [address] [address] Assessment No assessment recorded. Plan of Treatment Reminders Order Date Submit Date Provider Last Modified By Organization Details Last Modified Time Details Appointments None recorded. Lab urinalysis, dipstick [address] ([facility]), [address] [place] [address], [address], 4 11:17:53 urinalysis, complete [address] ([facility]), [address] [place], [address], 5 17:32:42 urinalysis, complete 2023 024 [facility] ([facility]), [address] [place], [address], 4 12:42:23 culture, urine 2023 024 [employer] [facility], [address] [place] [address] 248, [address] [place], [address], 4 04:24:47 TSH, serum or plasma 2023 024 [email or web address], [address] [place] [address] 248, [address] [place], [address], 4 15:04:06 CBC 2023 024 SHANELLE [facility], [address] [facility], [address], [place], [address], 4 13:55:38 CMP, serum or plasma 2023 024 SHANELLE [facility], [address] [facility] 248, [address] [place], [address], 4 04:24:45 Referral neurologist referral - el Boyce, the other neuro in her office. 2024 025 [email or web address] 2 [facility], [address] [place], [address], 5 17:40:16 neurologist referral [email or web address] [place] [address] Neurology, [address] [place], [address], 4 13:30:10 Procedures None recorded. Surgeries None recorded. Imaging None recorded. Medication Orders Macrobid 100 mg capsule 2023 025 [facility], [address], [place], [address], 5 15:06:17 Macrobid 100 mg capsule 2023 024 [email or web address] [facility] 15, [address], [place], [address], 5 15:06:07 prednisone 20 mg tablet 2022 024 [facility], [address], [place], [address], 4 11:51:46 doxycycline hyclate 100 mg capsule 2022 024 [facility], [address], [place], [address], 11:51:44 Patient TargetsNo targets recorded. Patient InstructionsNo instructions recorded. Reason for Referral Neurologist Referral for Spa smodic movement Referring Physician: Daysi Hernandez, Family Medicine, Encounter Date: 08/18/2023 Neurologist Referral for Mot or tic disorder not Austen, the other neuro in her office. Referring Physician: Daysi Hernandez Family Medicine, Encounter Date: 08/23/2024 Results Created Date Observation Date Name Description Value Unit Range Abnormal Flag Note LastModifiedBy Organization Detail LastModifiedTime 08/18/19 24 08/18/2023 CBC WBC 4.5 x10 4.0-10 .5 Not Available [facility] [address] [facility] [address], [place], [address], 08/18/2023 13:55:38 08/18/19 24 08/18/2023 CBC RBC 4.81 x10 3.50-5 .50 Not Available [facility] [address] [facility] [address], [place], [address], 08/18/2023 13:55:38 08/18/19 24 08/18/2023 CBC HGB 13.6 g/dL 12.0-1 6.0 Not Available [facility] [address] [facility] [address], [place], [address], 08/18/2023 13:55:38 08/18/19 24 08/18/2023 CBC HCT 38.8 % 37.0-4 7.0 Not Available [facility] [address] [facility] [address], [place], [address], 08/18/2023 13:55:38 08/18/19 24 08/18/2023 CBC MCV 80.7 fL 80.0-9 9.9 Not Available [facility] [address] [facility] 1, [place], [address], 08/18/2023 13:55:38 08/18/19 24 08/18/2023 CBC MCH 28.3 pg 27.0-3 2.0 Not Available [facility] [address] [facility] 1, [place], [address], 08/18/2023 13:55:38 08/18/19 24 08/18/2023 CBC MCHC 35.1 g/dL 32.0-3 6.0 Not Available [facility] [address] [facility] 1, [place], [address], 08/18/2023 13:55:38 08/18/19 24 08/18/2023 CBC RDW 14.5 % 11.5-1 4.5 Not Available [facility] [address] [facility] 1, [place], [address], 08/18/2023 13:55:38 08/18/19 24 08/18/2023 CBC plt 218.9 x10 140.0- 451.0 Not Available [facility] [address] [facility] 1, [place], [address], 08/18/2023 13:55:38 08/18/19 24 08/18/2023 CBC lymphocytes % 34.6 % 20.0-5 0.0 Not Available [facility] [address] [facility] 1, [place], [address], 08/18/2023 13:55:38 08/18/19 24 08/18/2023 CBC granulcytes % 58.8 % 30.0-7 0.0 Not Available [facility] [address] [facility] 1, [place], [address], 08/18/2023 13:55:38 08/18/19 24 08/18/2023 CBC monocytes % 4.8 % 2.0-10 .[address] [facility] [address] [address], [place], [address], 08/18/2023 13:55:38 08/18/19 24 08/18/2023 CBC granulcytes# 2.7 x10 Not Martha ilable [facility] [address] [address], [place], [address], 08/18/2023 13:55:38 08/18/19 24 08/18/2023 CBC lymphocytes # 1.6 x10 Not Available [place] [address] [address], [place], [address], 08/18/2023 13:55:38 08/18/19 24 08/18/2023 CBC monocytes # 0.2 x10 Not Avai lable [facility] [address] [address], [place], [address], 08/18/2023 13:55:38 08/18/19 24 08/19/2023 COMPR EHENS JO ANN METAB OLIC PANEL glucose 71 mg/dL 65-99 normal Fasti ng refer ence inter negro Not Available [address] [address] [place], [address], 08/19/2023 04:24:45 08/18/19 24 08/19/2023 COMPR EHENS JO ANN METAB OLIC PANEL urea nitrogen (BUN) 7 mg/dL 7-25 normal Not Available [facility] [address] [address] [place], [address], 08/19/2023 04:24:45 08/18/19 24 08/19/2023 COMPR EHENS JO ANN METAB OLIC PANEL creatinine 0.55 mg/dL 0.50-0 .97 normal Not Available [facility] [address] [address] [place], [address], 08/19/2023 04:24:45 08/18/19 24 08/19/2023 COMPR EHENS JO ANN METAB OLIC PANEL eGFR 125 mL/mi n/1.7 3m2 > or = 60 normal Not Available [address], [address], 08/19/2023 04:24:45 08/18/19 24 08/19/2023 COMPR EHENS JO ANN METAB OLIC PANEL BUN/creatini ne ratio SEE NOTE: (calc ) 6-22 Not Repor ann marie: BUN and Creat inine are withi n refer ence range . Not Available [address], [address], 08/19/2023 04:24:45 08/18/19 24 08/19/2023 COMPR EHENS JO ANN METAB OLIC PANEL sodium 139 mmol/ L 135-14 6 normal Not Available [address], [address], 08/19/2023 04:24:45 08/18/19 24 08/19/2023 COMPR EHENS JO ANN METAB OLIC PANEL potassium 4.3 mmol/ L 3.5-5. 3 normal Not Available [address], [address], 08/19/2023 04:24:45 08/18/19 24 08/19/2023 COMPR EHENS JO ANN METAB OLIC PANEL chloride 102 mmol/ L 98-110 normal Not Available [address] [place], [address], 08/19/2023 04:24:45 08/18/19 24 08/19/2023 COMPR EHENS JO ANN METAB OLIC PANEL carbon dioxide 30 mmol/ L 20-32 normal Not Available [address], [address], 08/19/2023 04:24:45 08/18/19 24 08/19/2023 COMPR EHENS JO ANN METAB OLIC PANEL calcium 9.8 mg/dL 8.6-10 .2 normal Not Available [address], [address], 08/19/2023 04:24:45 08/18/19 24 08/19/2023 COMPR EHENS JO ANN METAB OLIC PANEL protein, total 6.8 g/dL 6.1-8. 1 normal Not Available [address], [address], 08/19/2023 04:24:45 08/18/19 24 08/19/2023 COMPR EHENS JO ANN METAB OLIC PANEL albumin 4.9 g/dL 3.6-5. 1 normal Not Available [address], [address], 08/19/2023 04:24:45 08/18/19 24 08/19/2023 COMPR EHENS JO ANN METAB OLIC PANEL globulin 1.9 g/dL_ (calc ) 1.9-3. 7 normal Not Available [address], [address], 08/19/2023 04:24:45 08/18/19 24 08/19/2023 COMPR EHENS JO ANN METAB OLIC PANEL albumin/glob ulin ratio 2.6 (calc ) 1.0-2. 5 high Not Available [address], [address], 08/19/2023 04:24:45 08/18/19 24 08/19/2023 COMPR EHENS JO ANN METAB OLIC PANEL bilirubin, total 0.5 mg/dL 0.2-1. 2 normal Not Available [address], [address], 08/19/2023 04:24:45 08/18/19 24 08/19/2023 COMPR EHENS JO ANN METAB OLIC PANEL alkaline phosphatase 53 U/L 31-125 normal Not Available [address] [address] [place], [address], 08/19/2023 04:24:45 08/18/19 24 08/19/2023 COMPR EHENS JO ANN METAB OLIC PANEL AST 16 U/L 10-30 normal Not Available [address] [address] [place], [address], 08/19/2023 04:24:45 08/18/19 24 08/19/2023 COMPR EHENS JO ANN METAB OLIC PANEL ALT 14 U/L 6-29 normal Not Available [address] [address] [place], [address], 08/19/2023 04:24:45 08/18/19 24 08/19/2023 TSH TSH 1.05 mIU/L normal Refer ence Range > or = 20 Years 0.40- 4.50 Pregn abhijit Range s First trime ster 0.26- 2.66 Secon d trime ster 0.55- 2.73 Third trime ster 0.43- 2.91 Not Available [address] [address] [place], [address], 08/19/2023 05:28:17 08/18/19 24 08/21/2023 CULTU RE, URINE , ROUTI NE culture, urine, routine SEE NOTE abnormal CULTU RE, URINE , ROUTI NE Micro Numbe r: [id number] Test Statu s: Final Speci men Sourc e: Urine , clean catch Speci men Quali ty: Adequ ate Resul t: Great er than 100,0 00 CFU/m L of Klebs iella pneum oniae K.pne umoni ae ----- ----- ----- - INT DUNCAN AMOX/ CLAVU LANAT E S <=2 AMP/S ULBAC MCKEON S 4 CEFAZ BONY NR <=4 2 CEFEP RAFAL S <=0.1 2 CEFTA ZIDIM E S <=1 CEFTR IAXON E S <=0.2 5 CIPRO FLOXA JENNY S <=0.0 6 GENTA MICIN S <=1 IMIPE NEM S <=0.2 5 LEVOF LOXAC IN S <=0.1 2 MEROP ENEM S <=0.2 5 NITRO FURAN TOIN I 64 PIP/T AZOBA CTAM S <=4 TRIME THOPR IM/FOFANA LFA S <=20 S=[place]ah cepti ble I=Int ermed iate R=Res istan t * = Not Teste d NR = Not Repor ann marie NN = See Thera py Comme nts THERA PY COMME NTS Note 1: For infec tions other than uncom plica ann marie UTI cause d by E. coli, K. pneum oniae or P. mirab ilis: Cefaz bony is resis tant if DUNCAN > or = 8 mcg/m L. (Dist ingui shing susce ptibl e versu s inter media te for isola yuliana with DUNCAN < or = 4 mcg/m L requi res addit ional testi ng.) Note 2: For uncom plica ann marie UTI cause d by E. coli, K. pneum oniae or P. mirab ilis: Cefaz bony is susce ptibl e if DUNCAN <32 mcg/m L and predi cts susce ptibl e to the oral agent s cefac sujey, cefdi ashley, cefpo doxim e, cefpr ozil, cefur oxime , cepha lexin and lorac arbef . Not Available [facility] [address] [place], [address], 08/21/2023 01:39:31 08/18/19 24 08/18/2023 urina lysis , compl ete color yellow Not Available [facility] ([facility]) [address] [place] [address], [address], 08/18/2023 12:11:39 08/18/19 24 08/18/2023 urina lysis , compl ete clarity slight ly cloudy clear abnormal Not Available [facility] ([facility]) [address] [place], [address], 08/18/2023 12:11:39 08/18/19 24 08/18/2023 urina lysis , compl ete glucose NG negati ve Not Available [facility] ([facility]) [address] [place], [address], 08/18/2023 12:11:39 08/18/19 24 08/18/2023 urina lysis , compl ete bilirubin NG negati ve Not Available [facility] ([facility]) [address] [place], [address], 08/18/2023 12:11:39 08/18/19 24 08/18/2023 urina lysis , compl ete ketones NG negati ve Not Available [facility] ([facility]) [address] [place], [address], 08/18/2023 12:11:39 08/18/19 24 08/18/2023 urina lysis , compl ete specific gravity 1.025 1.005- 1.025 Not Available [facility] ([facility]) [address] [place], [address], 08/18/2023 12:11:39 08/18/19 24 08/18/2023 urina lysis , compl ete pH 6.5 5.0-7. 0 Not Available [facility] ([facility]) [address] [place], [address], 08/18/2023 12:11:39 08/18/19 24 08/18/2023 urina lysis , compl ete protein NG Not Available [facility] ([facility]) [address] [place], [address], 08/18/2023 12:11:39 08/18/19 24 08/18/2023 urina lysis , compl ete uro 0.2 Not Available [facility] ([facility]) [address] [place], [address], 08/18/2023 12:11:39 08/18/19 24 08/18/2023 urina lysis , compl ete nitrate positi ve negati ve abnormal Not Available [facility] ([facility]) [address] [place], [address], 08/18/2023 12:11:39 08/18/19 24 08/18/2023 urina lysis , compl ete blood 1+ negati ve abnormal Not Available [facility] ([facility]) [address] [place], [address], 08/18/2023 12:11:39 08/18/19 24 08/18/2023 urina lysis , compl ete leukocytes NG negati ve Not Available [facility] ([facility]) [address] [place], [address], 08/18/2023 12:11:39 08/18/19 24 08/18/2023 urina lysis , compl ete WBC 2-3 0 Not Available [facility] ([facility]) [address] [place], [address], 08/18/2023 12:11:39 08/18/19 24 08/18/2023 urina lysis , compl ete RBC NG 0 Not Available [facility] ([facility]) [address] [place], [address], 08/18/2023 12:11:39 08/18/19 24 08/18/2023 urina lysis , compl ete epi cells 2-3 0 Not Available [facility] ([facility]) [address] [place], [address], 08/18/2023 12:11:39 08/18/19 24 08/18/2023 urina lysis , compl ete bacteria 4++++ mixed boogie abnormal Not Available [facility] ([facility]) [address] [place], [address], 08/18/2023 12:11:39 08/18/19 24 08/18/2023 urina lysis , compl ete other NG Not Available [facility] ([facility]) [address] [place], [address], 08/18/2023 12:11:39 03/13/20 24 03/13/2024 urina lysis , dipst ick Leukocytes Large Not Available [facility] ([facility]) [address] [place], [address], 03/13/2024 10:20:44 03/13/20 24 03/13/2024 urina lysis , dipst ick Nitrite positi ve Not Available [facility] ([facility]) [address] [place], [address], 03/13/2024 10:20:44 03/13/20 24 03/13/2024 urina lysis , dipst ick Urobilinogen .2 Not Available [facility] ([facility]) [address] [place], [address], 03/13/2024 10:20:44 03/13/20 24 03/13/2024 urina lysis , dipst ick Protein Negati ve Not Available [facility] ([facility]) [address] [place], [address], 03/13/2024 10:20:44 03/13/20 24 03/13/2024 urina lysis , dipst ick pH 6.5 Not Available [facility] ([facility]) [address] [place], [address], 03/13/2024 10:20:44 03/13/20 24 03/13/2024 urina lysis , dipst ick Blood Modera te Not Available [facility] ([facility]) [address] [place], [address], 03/13/2024 10:20:44 03/13/20 24 03/13/2024 urina lysis , dipst ick Specific [place] 1.025 Not Available [facility] ( [facility]) [address] [place], [address], 03/13/2024 10:20:44 03/13/20 24 03/13/2024 urina lysis , dipst ick Ketone Negati ve Not Available [facility] ([facility]) [address] [place], [address], 03/13/2024 10:20:44 03/13/20 24 03/13/2024 urina lysis , dipst ick Bilirubin Negati ve Not Available [facility] ([facility]) [address] [place], [address], 03/13/2024 10:20:44 03/13/20 24 03/13/2024 urina lysis , dipst ick Glucose Negati ve Not Available [facility] ([facility]) [address] [place], [address], 03/13/2024 10:20:44 03/13/20 24 03/13/2024 urina lysis , dipst ick Appearance Cloudy Not Available [facility] ([facility]) [address] [place], [address], 03/13/2024 10:20:44 03/13/20 24 03/13/2024 urina lysis , dipst ick Color Yellow Not Available [facility] ([facility]) [address] [place], [address], 03/13/2024 10:20:44 Result Notes None recorded. Problems Name Problem SNOMED Code Status Onset Date Resolution Date Notes Provider Name and Address Organization Details Recorded Time Transient ischemic attack due to embolism 632480034 Active 2022 TIA- January 2022; 023 11:02AM by Hemant Norton, Office Visit; Promote d; acuity set as *; Not Available [facility] 3 03:10:24 Problem Notes None recorded. Procedures Surgical History Date Name Laterality Status Provider Name and Address Organization Details Recorded Time Appendectomy completed BILL DEWITT [facility], L.LHarjinder 02/08/2023 14:19:59 hysterectomy completed BILL DEWITT [facility], LJoshLJoshCJosh 02/08/2023 14:20:11 Imaging Results None recorded. Procedure Notes None recorded. Medical Equipment None Reported. Allergies Allergen ID Allergen Name Allergen Category Reaction Reaction Severity Criticality Documentation Date Start Date Code Code System Note Provider Name and Address Organization Details Recorded Time 33395 penicilli n G sodium medicatio n swelling Not available Not available 01/22/2023 9900 RxNorm React ion: Swell ing; Comme nt: Recor ded 08/18 11:02 AM by Diallo Norton, Offic e Visit ; Rosita jesus; Nickolas alfaro ce: *; ; Not Available [facility] 3 02:27:16 Medications Name Sig Start Date Stop Date Status Note LastModified by Organization Details LastModified Time clonidine HCl 0.1 mg tablet TAKE 1 TABLET BY MOUTH ONCE DAILY 03/13 completed Not Available Not Available Not Available doxycycline hyclate 100 mg capsule Take 1 capsule twice a day by oral route for 10 days. 08/18 completed Not Available Not Available Not Available clindamycin HCl 300 mg capsule TAKE 1 CAPSULE BY MOUTH EVERY 6 HOURS 03/15 completed Not Available Not Available Not Available prednisone 20 mg tablet Take 2 tablets every day by oral route in the morning for 10 days. 08/18 completed Not Available Not Available Not Available clindamycin HCl 150 mg capsule TAKE 2 CAPSULES BY MOUTH EVERY 6 HOURS 03/15 completed Not Available Not Available Not Available topiramate 25 mg tablet TAKE 1 TABLET BY MOUTH IN THE EVENING FOR 7 DAYS THEN 1 TWICE DAILY FOR 7 DAYS THEN 1 IN THE MORNING AND 2 IN THE EVENING FOR 7 DAYS THEN 2 TWICE DAILY 03/13 completed Not Available Not Available Not Available ciprofloxac in 500 mg tablet TAKE 1 TABLET BY MOUTH TWICE DAILY 12/21 completed Not Available Not Available Not Available hydrocodone 7.5 mg-acetamin ophen 325 mg tablet TAKE 1 TABLET BY MOUTH EVERY 6 HOURS NEEDED FOR PAIN 03/15 completed Not Available Not Available Not Available cefdinir 300 mg capsule Take 1 capsule every 12 hours by oral route for 10 days. 03/15 completed Not Available Not Available Not Available nitrofurant oin monohydrate /macrocryst als 100 mg capsule TAKE 1 CAPSULE BY MOUTH EVERY 12 HOURS FOR 7 DAYS 08/23 completed Not Available Not Available Not Available Vitals Date Recorded Body height Body mass index (BMI) Body weight Body temperature Oxygen saturation Oxygen saturation in Arterial blood by Pulse oximetry Heart rate Systolic And Diastolic Provider Name and Address Organization Details Last Updated DateTime 4 160.02 cm 22.7 kg/m2 93074.8 2 g 97.5 [degF] 99 % 99 % 77 /min 90/60 mm[Hg] BILL DEWITT [facility] 4 11:51:18 Date Recorded Body height Body mass index (BMI) Body weight Body temperature Oxygen saturation Oxygen saturation in Arterial blood by Pulse oximetry Heart rate Systolic And Diastolic Provider Name and Address Organization Details Last Updated DateTime 5 160.02 cm 24.1 kg/m2 95235.5 6 g 97.3 [degF] 99 % 99 % 102 /min 112/68 mm[Hg] [facility] 5 15:06:02 Date Recorded Body height Body mass index (BMI) Body weight Body temperature Oxygen saturation Oxygen saturation in Arterial blood by Pulse oximetry Heart rate Systolic And Diastolic Provider Name and Address Organization Details Last Updated DateTime 4 160.02 cm 22.7 kg/m2 99651.8 2 g 97.8 [degF] 98 % 98 % 65 /min 104/72 mm[Hg] [facility] 4 16:21:49 Date Recorded Body height Body mass index (BMI) Body weight Body temperature Oxygen saturation Oxygen saturation in Arterial blood by Pulse oximetry Heart rate Systolic And Diastolic Provider Name and Address Organization Details Last Updated DateTime 4 160.02 cm 23.2 kg/m2 68956.6 g 98.4 [degF] 99 % 99 % 93 /min 100/60 mm[Hg] BILL DEWITT [facility] 4 10:23:29 Date Recorded Body height Body mass index (BMI) Body weight Body temperature Oxygen saturation Oxygen saturation in Arterial blood by Pulse oximetry Heart rate Systolic And Diastolic Provider Name and Address Organization Details Last Updated DateTime 3 160.02 cm 23.4 kg/m2 62547.1 9 g 97.3 [degF] 99 % 99 % 91 /min 114/76 mm[Hg] ANTHONY CONTRERAS [facility] 3 10:37:27 Social History None recorded. Functional Status Question Answer Note LastModified by Organizat ion Details LastModified Time Do you use any illicit or recreational drugs? No [email or web address] Information not available 02/02/2023 Do you or have you ever used any other forms of tobacco or nicotine? Yes [email or web address] Information not available 02/02/2023 What is your level of alcohol consumption? None [email or web address] Information not available 02/02/2023 Do you or have you ever used e-cigarettes or vape? Never used electronic cigarettes [email or web address] Information not available 02/02/2023 Mental Status None recorded. Family History Relationship Description Onset Age of this Age Resolved Age Notes LastModified by Organization Details LastModified Time Mother Anxiety disorder [email or web address] Not available 07/29 11:52:08 Paternal Grandmother Malignant neoplasm of lung [email or web address] Not available 07/29 11:52:23 Medical History Condition Response Coronary Artery Disease N Other N Gout N Kidney Stones N Blood Diseases N Hyperthyroidism N Breast Cancer N Blood Transfusion N Depression N Hypothyroidism N Lung Disease N COPD N Developmental or Behavioral Disorders N Defects or Inherited Disease N Breast Problem N Difficulty Swallowing N Anesthesia Complications N Anxiety Disorder N Meniere's disease N Muscle, Joint, or Bone Problems N Vision or Eye Problems N Arthritis N Infertility N Polyps N Cancer N Stroke N Varicosities N Endometriosis N Bladder or Kidney Problems N High Cholesterol N Liver Disease N Fibromyalgia N Headaches N Kidney Disease N Allergies/Hayfever N Heart Problems N Ear or Hearing Problems Y Hospitalizations N Thyroid Problems N GI Problems N ADD/ADHD N Skin Problems N Eating Disorder N Anemia N Constipation N Mental Illness N Ovarian Cancer N Diabetes N Bedwetting N Seizures/Epilepsy N Tuberculosis N Eczema N Diverticulitis N Abuse/Domestic Violence N Asthma N Reflux/GERD N Hepatitis N Heart Disease N Pulmonary Embolism N Pre-Eclampsia N Hypertension N Chronic Ear Infections N Osteoporosis N Chicken Pox N Autism Spectrum Disorder (ASD) N Thrombophilias N Gynecological History Statement/Question Response Date of Last Pap Smear Obstetrics History GPAL:G 7 P 3 0 0 3 Type Value Full Term 3 Living 3 Total 7 Immunizations Vaccine Type Date Status Note Provider Nam e and Address Organization Details Recorded Time MMR 6 completed ANTHONY guerra [facility], L.LJoshCJosh 02/02/2023 14:07:23 MMR 4 [facility]23 14:07:23 Hep B, unspecified formulation 6 [facility] 02/02/2023 14:07:23 Hep B, unspecified formulation 5 completed ANTHONY guerra [facility], L.LJoshCJosh 02/02/2023 14:07:23 Hep B, unspecified formulation 5 completed ANTHONY guerra [facility], L.LJoshCJosh 02/02/2023 14:07:23 OPV 2 completed ANTHONY guerra [facility], L.LJoshC. 02/02/2023 14:07:23 OPV 6 bubba guerra [facility], TimboLJoshCJosh 02/02/2023 14:07:23 OPV 1 bubba guerra [facility] 02/02/2023 14:07:23 OPV 5 completed ANTHONY guerra, [facility] 02/02/2023 14:07:23 DTP-Hib 2 completed ANTHONY guerra, [facility] [facility] 02/02/2023 14:07:23 DTP-Hib 2 completed ANTHONY CONTRERAS null, [facility] 02/02/2023 14:07:23 DTP-Hib 1 completed ANTHONY guerra [facility] 02/02/2023 14:07:23 DTP-Hib 5 completed ANTHONY guerra, [facility] 02/02/2023 14:07:23 Influenza, split virus, trivalent, preservative 6 completed Not Available [facility] 03/15/2023 10:32:24 Past Encounters Encounter ID Performer Location Encounter Start Date Encounter Closed Date Diagnosis/Indication Diagnosis SNOMED-CT Code Diagnosis ICD10 Code Diagnosis Note [id number] Daysi Hernandez MD [facility] ([facility]) [address] [place] [address] 5 02/02/2023 13:57:02 02/12/2023 14:41:29 Influenza-like symptoms 942216508 R68.89 COVID-19 882128726 U07.1 tested positive today [id number] KEILA VELA PA-C [facility] ([facility]) [address] [place] [address] 5 02/04/2023 15:39:52 02/04/2023 16:32:16 Perforation of tympanic membrane of left ear due to otitis media 7988781021 148991 H66.012 f/u with Dr. Hernandez after antibiotic s complete if all symptoms not resolved. [id number] Daysi Hernandez MD [facility] ([facility]) [address] [place], [place] [address] 02/08/2023 14:01:22 02/14/2023 12:06:17 Perforation of tympanic membrane of left ear due to otitis media 0020592123 466756 H72.92 Appear to be healing over with a thin membrane. reassuranc e. recehck in 1 month. [id number] Daysi Hernandez MD [facility] ([facility]) [address] [place] [phone] 03/15/2023 10:32:00 03/15/2023 12:05:51 Acute bronchitis 09437591 J20.9 vapes [id number] Daysi Hernandez MD [facility] ([facility]) [address] [place] [phone] 5 08/18/2023 11:47:50 08/18/2023 12:37:01 Unintentional weight loss 730945735 R63.4 was 132 in Feb. only down 4 lbs. had all her teeth removed in November and was on liquid diet - I suspect stomach shrunk and she just has decreased appetite ffrom that. will check some labs. Dysuria 74225035 R30.0 feels like her usual utis Spasmodic movement 87799 6004 R25.3 claps 3 times uncontroll ably. [id number] Daysi Hernandez MD [facility] ([facility]) [address] [place] [phone] 12/22/2023 15:41:51 12/24/2023 20:20:03 Microscopic hematuria 506616736 R31.29 we do not have her urgent care records to know what WBC and blood in her urine meant to them, but I suspect normal indicators of her infection at that time. symptoms resolved. pt to leave urine sample at lab to ensure blood has cleared. [id number] Daysi Hernandez MD [facility] ([facility]) [address] [place] [phone] 03/13/2024 10:15:47 03/13/2024 13:27:12 Acute urinary tract infection [id number] N39.0 Otalgia of left ear 1010 773543 H92.02 exam wnl today. [id number] Daysi Hernandez MD [facility] ([facility]) [facility] [place] [address] 08/23/2024 14:32:45 08/28/2024 07:58:37 Motor tic disorder 749915030 F95.8 hx of prior treatment w neurology. Health Concerns Section Related Observation LastModified by Organization Detai ls LastModified Time None Recorded Concern Status LastModified by Organization Details LastModified Time None Recorded Advance Directives Directive None Recorded Payers Insurance Date Sequence Insurance Name Policy Number Policy Kessler Covered Member ID Kessler Member ID Guarantor Name 08/28/2024 [facility] (MEDICAID HMO) Dayanna Pires [id number] Dayanna Jamison 08/22/[address] [facility] (MEDICAID HMO) Dayanna Jamison [id number] Dayanna Jamison Notes Date Note Type Note Provider Name and Address Organization Details Recorded Time 03/15/2023 text/html CoughReported bypatient.Quality:dr orta Severity:worsening; moderate Associated Symptoms:no fever; no chills; no nausea; no vomiting;shortness of breath she vapes, got better from covid then got cough that has been persistent for 2 weeks. no fever. seems to be going around to the kids too. Daysi Hernandez MD [address] [place] [address], [phone], [facility] 03/15/2023 11:37:43 08/18/2023 text/html Weight LossRepor ann marie bypatient.Severity:a mount of weight loss 15, weight loss over 2 months Quality:worsening Duration:gradual onset Associated Symptoms:abdominal pain;loss of appetite I think I have a bad utigetting sharp pains on left for about 1 week, comes and goes, trouble emptying bladder all the way, no burning , no fever. I hardly eat now just not as hungryI got all my teeth pulled back in November - all I ate was mashed potatoes, now I just dont have much appetite. wanted to make sure it was okay. also, I didnt want to bring it up but for the last month or 2 I have had to clap 3 times, randomly, its like my hands are magnetized, it is not something I can control, I cant stop it from happening, does happen daily Daysi Hernandez MD [address] [place] [address], [phone], [facility] 08/18/2023 12:34:04 12/22/2023 text/html UTI resolvedshe does not have the symptoms she was havingfinished w abxshe just didnt know what the wbc stuff was all about Daysi Hernandez MD [address] [place] [address], [phone], [facility] 12/24/2023 10:52:32 03/13/2024 text/html Lower Urinary Tr act Symptoms (LUTS)Reported bypatient.Onset/Terry ng:constant Duration:2-3 weeks Context:excessive fluid intake;excessive caffeine intake Associated Symptoms:no abdominal pain; no groin pain; no pelvic pain; no flank pain; no nausea; no vomiting;frequency;d ysuria;urine odor also left ear is hurting - like it did when she had the tm rupture Daysi Hernandez MD [address] [place] [address], [phone], [facility] 03/13/2024 13:43:03 08/23/2024 text/html pt has tic syndr ome and needs to go back to neurology...she saw neuro for a while and then her tics got better so she stopped going- was on medicine but she does not remember the name of the medicine.....(per neuro note they were going to start her on topamax)She states that the tics are back and it is preventing her from being able to obtain a job. Daysi Hernandez MD [address] [place] [address], [phone], [facility] 08/23/2024 17:56:31 OBGyn Episode No OBEpisode recorded.
--- NOTE | 2024-12-28 14:24 | CTR_ITS ---
PROCEDURE INFORMATION: Exam: CT Head Without Contrast Exam date and time: 12/28/2024 2:25 PM Age: 34 years old Clinical indication: Stroke-like symptoms; Speech disturbance; Additional info: Symptoms of acute stroke TECHNIQUE: Imaging protocol: Computed tomography of the head without contrast. Radiation optimization: All CT scans at this facility use at least one of these dose optimization techniques: automated exposure control; mA and/or kV adjustment per patient size (includes targeted exams where dose is matched to clinical indication); or iterative reconstruction. Other technique: STROKE PROTOCOL was implemented. COMPARISON: CT head wo con* [id number] 03/23/2022 9:52 AM RADIATION DOSE METRICS: Total DLP (mGy-cm): 1056.94 FINDINGS: Brain: No evidence of intra-axial or extra-axial hemorrhage. No mass effect or midline shift. Comer-white differentiation is maintained. Basilar cisterns are patent. Cerebral ventricles: No hydrocephalus. Paranasal sinuses: The visualized paranasal sinuses are well aerated. Mastoid air cells: The visualized mastoids and middle ears are clear. Bones: Calvarium is intact. No evidence of acute fracture. Soft tissues: No gross soft tissue abnormality. CT/CT head thrombolytic [id number] IMPRESSION: 1. No acute intracranial abnormality. ASSESSMENT: ASPECTS ([place] Stroke Program Early CT Score) is 10.
--- NOTE | 2024-12-28 14:27 | W.ED.NEUROSD ---
HPI - Neuro Symptoms/Deficit General: Chief Complaint: Neuro Symptoms/Deficit Stated Complaint: stroke like symptoms (no speech) Time Seen by Provider: 12/28/24 14:21 History of Present Illness: 34-year-old female presents emergency room with concerns of strokelike symptoms she tells me she has right arm numbness and tingling difficulty with her speech started this morning headache got worse around noontime today. She does report she has previously had a stroke. Triage nurse at [facility] also written down that her right leg had started to go numb while she is in triage however when I did scratch testing on her in the CT suite she was complaining of decreased sensation on her left arm leg and the left side of her face. She is having some difficulty with word finding and is has some stuttering but is able to vocalize a single words at a time does not come to speak in complete sentences. After discussion of the patient and with the family members would establish a last known well of 1130 this morning. Associated symptoms: Deny chest pain Related Data Home Medications ?Medication ?Instructions ?Recorded ?Confirmed acetaminophen 325 mg tablet 325 mg PO QID PRN Fever Or Pain 12/28/24 12/28/24 (Tylenol) ibuprofen 200 mg tablet (Advil) 400 mg PO Q6H PRN Fever Or Pain 12/28/24 12/28/24 Previous Rx's ?Medication ?Instructions ?Recorded cyanocobalamin (vitamin B-12) 1,000 mcg PO DAILY #30 tabs 12/29/24 1,000 mcg tablet (Vitamin B-12) Allergies Allergy/AdvReac Type Severity Reaction Status Date / Time Penicillins Allergy anaphylais Verified 12/13/23 16:42 Review of Systems Const: Denies: fever(s) or chills Card: Denies: chest pain Resp: Denies: dyspnea GI: Denies: abdominal pain : Denies: dysuria, urinary frequency or urinary urgency Musc: Denies: neck pain or back pain Skin/Breast: Denies: rash PFSH ED PFSH: Surgical History Hx of appendectomy Hx of hysterectomy Family History Denies family history of Diabetes Dementia Cancer Hypertension Social History Smoking and tobacco/nicotine status: current every day tobacco/nicotine user Alcohol intake: never 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 NIH stroke score NIHSS: Level Of Consciousness - 1a: 0 Level Of Consciousness Questions - 1b: Both Correct Level Of Consciousness Commands - 1c: Both Correct Best Gaze - 2: Normal Visual Blackman - 3: No Visual Loss Facial Palsy - 4: Normal Motor Arm Right - 5: No Drift Motor Arm Left - 5: No Drift Motor Leg Right - 6: No Drift Motor Leg Left - 6: No Drift Limb Ataxia - 7: Absent Sensory - 8: Mild To Moderate Loss Best Language - 9: Mild/Moderate Aphasia Dysarthia - 10: Mild/Moderate Dysarthia Extinction And Inattention - 11: 0 Score: Total Score: 3 Physical Exam Const: GENERAL APPEARANCE: cooperative and comfortable ORIENTATION/CONSCIOUSNESS: Yes awake HENMT: COMMON NORMALS: normocephalic, atraumatic and hearing grossly normal bilaterally HEAD & SCALP: normocephalic and atraumatic Resp: COMMON NORMALS: normal respiratory effort, No retractions, No use of accessory muscles and clear to auscultation bilaterally AUSCULTATION: clear to auscultation bilaterally Cardio: COMMON NORMALS: regular rate, regular rhythm and No murmurs present (Cardio) RATE: regular rate RHYTHM: regular rhythm GI: COMMON NORMALS: Soft to palpation and No hepatosplenomegaly present AUSCULTATION: Yes normoactive bowel sounds PALPATION: Yes Soft to palpation, No Tenderness to palpation present (GI), No Guarding due to palpation present (GI) and Yes No hepatosplenomegaly present Extremity: COMMON NORMALS: normal to inspection, capillary refill normal, no clubbing, cyanosis or edema, no calf tenderness and no pedal edema Skin: COMMON NORMALS: no rashes or lesions noted GENERAL SKIN EXAM: no rashes or lesions noted Course Vital Signs: Vital signs: Vital Signs Temperature 98.6 F 12/29/24 14:15 Pulse Rate 60 12/29/24 14:15 Respiratory Rate 18 12/29/24 14:15 Blood Pressure 101/70 12/29/24 14:15 Pulse Oximetry 98 12/29/24 14:15 Oxygen Delivery Me thod Room Air 12/29/24 11:08 MDM - Neuro Symptoms/Deficit Medical Decision Making CT head negative. Patient's onset of symptoms put her outside the window for thrombolytics that she does not have a high enough stroke score for thrombectomy. Suspect that this may be recrudescence of previous episodes some of this may be functional. She has a stuttering like difficulty with words. Otherwise reported mild to moderate loss of sensory but this was present prior to this episode. Family at the bedside states she intermittently has these episodes in the past as well. Some of this may be migraine with aura. She has almost more of a vocal tic or Tourette's-like presentation. I do not believe she had a TIA in the past. She is experiencing a headache currently with the symptoms. Discussed with hospitalist orders written. Incidental finding of cystitis Medical Records I reviewed the patient's medical records. Lab Data I reviewed the patient's lab results. 12/29/24 04:27 12/29/24 04:[address] 12/28/24 14:24 IMPRESSION: 1. No acute intracranial abnormality. ASSESSMENT: ASPECTS ([place] Stroke Program Early CT Score) is 10. ADDENDUM: 12/28/24 [id number] The findings were verbally communicated by telephone with Dr. RECIO at 2:46 PM CDT on 12/28/2024. Carotid Doppler Study 12/29/24 17:46 IMPRESSION: No carotid arterial stenosis. REFERENCES: SRU CRITERIA. The degree of internal carotid artery stenosis is based on criteria defined by the Society of Radiologists in Ultrasound (SRU). Normal is no stenosis. Mild is less than 50% stenosis. Moderate is 50-69% stenosis. Severe is greater than 69% stenosis to near occlusion. Near occlusion is a markedly narrowed lumen. Total occlusion is no detectable patent lumen. Reference: Dominic Benson, et al. Carotid Artery Stenosis: Comer-Scale and Doppler US Diagnosis-Society of Radiologists in Ultrasound Consensus Conference. Radiology 2003; 229:340-346. Head MRI 12/29/24 17:46 IMPRESSION: Unremarkable appearance of the brain. Laboratory Results WBC 5.76 10^3/uL (3.29-11.43) 12/28/24 14:45 RBC 4.66 10^6/uL (3.85-5.65) 12/28/24 14:45 Hgb 12.90 g/dL (11.27-16.99) 12/28/24 14:45 Hct 39.4 % (36-47) 12/28/24 14:45 MCV 84.5 fl (85-98) L 12/28/24 14:45 MCH 27.7 pg (27-33) 12/28/24 14:45 MCHC 32.7 g/dL (30-55) 12/28/24 14:45 RDW 13.2 % (12.1-15.1) 12/28/24 14:45 Plt Count 191 10^3/cmm (157-399) 12/28/24 14:45 MPV 10.2 fL (7.4-10.4) 12/28/24 14:45 Neut % (Auto) 68.9 % 12/28/24 14:45 Lymph % (Auto) 23.1 % 12/28/24 14:45 [place] % (Auto) 5.2 % 12/28/24 14:45 Eos % (Auto) 2.1 % 12/28/24 14:45 Baso % (Auto) 0.5 % 12/28/24 14:45 Neut # (Auto) 3.97 10^3/uL (1.8-7.7) 12/28/24 14:45 Lymph # (Auto) 1.3 10^3/uL (0.8-4.8) 12/28/24 14:45 [place] # (Auto) 0.3 10^3/uL (0.2-0.9) 12/28/24 14:45 Eos # (Auto) 0.1 10^3/uL (0.0-0.8) 12/28/24 14:45 Baso # (Auto) 0.0 10^3/uL (0.0-0.1) 12/28/24 14:45 Nucleated RBC % (auto) 0 % 12/28/24 14:45 Nucleated RBCs # 0.0 /100WBC 12/28/24 14:45 PT 14.10 SECONDS (12.1-14.9) 12/28/24 14:45 INR 1.02 (0.8-1.2) 12/28/24 14:45 APTT 27.0 SECONDS (23.9-36.7) 12/28/24 14:45 Sodium 138 mmol/L (136-145) 12/28/24 14:45 Potassium 4.0 mmol/L (3.5-5.1) 12/28/24 14:45 Chloride 102 mmol/L (98-107) 12/28/24 14:45 Carbon Dioxide 23 mmol/L (22-29) 12/28/24 14:45 Anion Gap 17.0 (5-19) 12/28/24 14:45 BUN 12 mg/dL (6-20) 12/28/24 14:45 Creatinine 0.7 mg/dL (0.5-0.9) 12/28/24 14:45 GFR Calculation 95.8 mL/min (90-130) 12/28/24 14:45 Glucose 112 mg/dL (65-115) 12/28/24 14:45 POC Glucose 129 mg/dL (70-110) H 12/28/24 14:22 Estimat Average Glucose 88 12/28/24 14:43 Hemoglobin A1c 4.7 % (4.0-6.0) 12/28/24 14:43 Calculated Osmolality 287 mOsm/kg (285-295) 12/28/24 14:45 Lactic Acid 1.7 mmol/L (0.5-2.2) 12/28/24 14:43 Calcium 9.2 mg/dL (8.5-10.5) 12/28/24 14:45 Total Bilirubin 0.6 mg/dL (0.15-1.2) 12/28/24 14:45 AST 13 U/L (0-32) 12/28/24 14:45 ALT 16 U/L (0-33) 12/28/24 14:45 Alkaline Phosphatase 51 U/L (35-105) 12/28/24 14:45 Total Protein 6.7 g/dL (6.6-8.7) 12/28/24 14:45 Albumin 4.1 g/dL (3.5-5.2) 12/28/24 14:45 Globulin 2.6 g/dL (1.3-4.6) 12/28/24 14:45 Triglycerides 64 mg/dL (0-150) 12/28/24 14:43 Cholesterol 150 mg/dL (0-200) 12/28/24 14:43 LDL Cholesterol, Calc 81 mg/dL (50-129) 12/28/24 14:43 Total VLDL Cholesterol 13 mg/dL (0-30) 12/28/24 14:43 HDL Cholesterol 56 mg/dL (60-100) L 12/28/24 14:43 Cholesterol/HDL Ratio 2.68 mg/dL (0.0-4.40) 12/28/24 14:43 Vitamin B12 226 pg/mL (232-1245) L 12/28/24 14:43 TSH 0.76 uIU/mL (0.27-4.20) 12/28/24 14:43 TSH 0.76 uIU/mL (0.27-4.20) 12/28/24 14:43 Prolactin 10.69 ng/mL (4.8-23.3) 12/28/24 14:43 Urine Color Yellow (Yellow) 12/28/24 14:49 Urine Appearance Clear (CLEAR) 12/28/24 14:49 Urine pH 6.5 (5-7) 12/28/24 14:49 Ur Specific [place] 1.023 (1.005-1.030) 12/28/24 14:49 Urine Protein 1+ (Negative) A 12/28/24 14:49 Urine Glucose (UA) Negative (Normal) 12/28/24 14:49 Urine Ketones Trace (Negative) 12/28/24 14:49 Urine Blood 2+ (Negative) A 12/28/24 14:49 Urine Nitrate Negative (Negative) 12/28/24 14:49 Urine Bilirubin Negative (Negative) 12/28/24 14:49 Urine Urobilinogen 1.0 mg/dL (Negative) 12/28/24 14:49 Ur Leukocyte Esterase 2+ (Negative) A 12/28/24 14:49 Urine RBC 11-20 /hpf (0-2) H 12/28/24 14:49 Urine WBC >100 /hpf (0-5) H 12/28/24 14:49 Ur Squamous Epith Cells 6-10 /hpf (0-5) 12/28/24 14:49 Amorphous Sediment Not Reportable 12/28/24 14:49 Urine Bacteria Exceeds /hpf (NONE) 12/28/24 14:49 Hyaline Casts 4.93 /lpf 12/28/24 14:49 Urine Opiates Screen Negative ng/mL (Negative) 12/28/24 14:49 Ur Barbiturates Screen Negative ng/mL (Negative) 12/28/24 14:49 Ur Phencyclidine Scrn Negative ng/mL (Negative) 12/28/24 14:49 Ur Amphetamines Screen Negative ng/mL (Negative) 12/28/24 14:49 U Benzodiazepines Scrn Negative ng/mL (Negative) 12/28/24 14:49 Urine Cocaine Screen Negative ng/mL (Negative) 12/28/24 14:49 U Marijuana (THC) Screen Negative ng/mL (Negative) 12/28/24 14:49 All radiology interpretation(s) finalized by discharge Discharge Plan Discharge Patient Disposition: Admitted As Inpatient Admit Provider: Laurel Lind Clinical Impression: History of stroke, Tourette's, Vocal tic disorder, UTI (urinary tract infection) Condition: Stable Discharge Diet: Regular Discharge Activity: Resume usual activity Coding Level of Care Code ED Terrazzo Worker for Ashleigh Carr
--- NOTE | 2024-12-28 14:38 | PC.NURSE ---
Addendum entered by Kimberly Linares 12/28/24 14:54: video conference began at 1453. Addendum entered by Kimberly Linares 12/28/24 14:50: Dr. Will called back to speak with Dr. Recio @ 2400. Original Note: Called [facility] @ 2068 with [facility] and [facility] [place], operated by [facility]. images pushed.
--- NOTE | 2024-12-28 14:42 | ECG_ITS ---
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
[2024-12-28 15:04] LABS: Hematocrit 39.4 % (36-47); Hemoglobin 12.90 g/dL (11.27-16.99); Mean Corpuscular HGB Conc 32.7 g/dL (30-55); Mean Corpuscular Hemoglobin 27.7 pg (27-33); Mean Corpuscular Volume 84.5 fl (85-98); Nucleated Red Blood Cells % 0 %; Platelet Count 191 10^3/cmm (157-399); Red Blood Count 4.66 10^6/uL (3.85-5.65); White Blood Count 5.76 10^3/uL (3.29-11.43)
[2024-12-28 15:22] LABS: PCP Screen Urine Negative (Negative)
[2024-12-28 15:23] LABS: INR 1.02 (0.8-1.2); Partial Thromboplastin Time 27.0 SECONDS (23.9-36.7); Prothrombin Time 14.10 SECONDS (12.1-14.9)
--- NOTE | 2024-12-28 15:27 | P.HP_ITS ---
Providers/Chief Complaint 2 Primary Care Provider: Daysi Hernandez MD Chief Complaint: stroke like symptoms (no speech) History of Present Illness Dayanna Jamison is a 34 year old female With past medical history of photosensitive epilepsy, possible Tourette's syndrome, vocal tics (as per patient's daughter) stroke 3 years ago, presented to the hospital today with complaint of right arm numbness and tingling. She states she went to watch fireworks last night with her daughter and in the morning woke up with a headache. Since then she has been stuttering. Daughter states that patient was trying to speak however words were not really coming out or they were coming out in a stuttering format. Patient had a stroke 3 years ago and was at [facility] at that time. She follows with [place] [facility] and last saw him 1 year ago. Most of the history is given by the daughter who is at bedside as patient is unable to speak clearly due to his daughter. Patient was requesting to eat. Patient was seen by telemetry stroke service who informed ER doctor that this is most likely not a stroke. Their differentials include possible partial complex seizure versus complex migraine. Daughter states patient was supposed to follow-up with Dr. Boyce however they could not get an appointment somehow. Otherwise she is pretty healthy. Denies nausea vomiting diarrhea abdominal pain chest pain. Medications/Allergies Home Medications ?Medication ?Instructions ?Recorded ?Confirmed ?Last Taken ?Type acetaminophen 325 mg tablet 325 mg PO QID PRN Fever Or Pain 12/28/24 12/28/24 Unknown History (Tylenol) ibuprofen 200 mg tablet (Advil) 400 mg PO Q6H PRN Feve r Or Pain 12/28/24 12/28/24 Unknown History Allergies Allergy/AdvReac Type Severity Reaction Status Date / Time Penicillins Allergy anaphylais Verified 12/13/23 16:42 PFSH Acute 2 PFSH: Surgical History Hx of appendectomy Hx of hysterectomy Family History Denies family history of Diabetes Dementia Cancer Hypertension Social History Smoking and tobacco/nicotine status: current every day tobacco/nicotine user Alcohol intake: never Vitals/I&O/Wt Last Vital Signs Temp 98.2 F 12/28/24 14:17 Pulse 94 12/28/24 14:17 Resp 14 12/28/24 14:17 BP 115/79 12/28/24 14:17 Pulse Ox 100 12/28/24 14:17 O2 Del Method Room Air 12/28/24 14:17 12/28/24 12/28/24 12/28/24 06:59 14:59 22:59 Intake Total 0 / 0 Balance 0 / 0 Weight last 48 hrs Weight 61.235 kg Physical Exam 2 Narrative: General: Alert oriented x3, patient seen laying in bed with daughter present at bedside. She stutters that she speaks. Vitals are stable. HEENT: Normocephalic, atraumatic, EOMI, breathing room air Cardio: Regular rate rhythm, normal S1-S2, Respiratory: Clear to auscultation bilaterally no wheezes no rhonchi GI: Abdomen soft, nontender, nondistended, bowel sounds + Extremities: No edema bilateral lower extremities Neuro: Grossly nonfocal, mild right-sided numbness present. Very mild right- sided weakness compared to left side. Cranial nerves intact. Gait not tested. Patient's daughters as she tries to speak. Able to use sign language to communicate with her daughter. Data 12/28/24 14:45 12/28/24 14:45 A&P Assessment and plan (1) Numbness and tingling: (2) History of stroke: (3) Epilepsy: (4) UTI (urinary tract infection): (5) Headache: (6) Tourette's: (7) Vocal tic disorder: Plan #Right-sided numbness #Stuttering #History of vocal tics/Tourette's? #History of photosensitive epilepsy as per daughter #Headache #UTI ? Request records from [place] [facility] however it being December 28 I am not sure if we will get records back right away. ? Check a lipid panel, TSH, hemoglobin A1c ? I would not call the above for TIA. She does have a history of a stroke in the past. It is possible that her symptoms could be recrudescence of her previous stroke versus from complex migraine. She is currently still experiencing a headache. ? Will order hydrocodone 5 every 8 hours as needed. ? Urinalysis positive with greater than 100 WBCs. Order ceftriaxone 1 g IV daily for UTI. ? Check urine culture ? Continue to monitor on telemetry ? Check echocardiogram ? Ativan 1 mg x 1 given in the ER. Will continue to monitor. ? Check lactic acid, prolactin level ? In case she has a witnessed seizure in the hospital she will need to be loaded with Keppra and transferred to facility with neurology services available for EEG or possible video EEG monitoring. I discussed with patient's daughter and patient in person. For now we will continue to observe and monitor patient here. ? If she remains seizure-free by tomorrow and if headache resolves and symptoms improve we may be able to discharge her home with outpatient neurology follow- up. Daughter agreeable. - Check PT Full code DVT prophylaxis: Heparin SQ twice daily PDMP PDMP Reviewed: Not Reviewed Attestations 2 Medical Necessity Statement*: Observation admission Diagnoses Numbness and tingling R20.0; R20.2 History of stroke Z86.73 Epilepsy G40.909 UTI (urinary tract infection) N39.0 Headache R51.9 Tourette's F95.2 Vocal tic disorder F95.8
[2024-12-28 15:30] LABS: Alanine Aminotransferase 16 U/L (0-33); Albumin Level 4.1 g/dL (3.5-5.2); Alkaline Phosphatase 51 U/L (35-105); Anion Gap 17.0 (5-19); Aspartate Amino Transferase 13 U/L (0-32); Blood Urea Nitrogen 12 mg/dL (6-20); Calcium 9.2 mg/dL (8.5-10.5); Carbon Dioxide 23 mmol/L (22-29); Chloride 102 mmol/L (98-107); Creatinine Clr Calc Pharmacy 99.9931; Globulin 2.6 g/dL (1.3-4.6); Glucose 112 mg/dL (65-115); Osmolality Calculated 287 mOsm/kg (285-295); Potassium 4.0 mmol/L (3.5-5.1); Sodium 138 mmol/L (136-145); Total Protein 6.7 g/dL (6.6-8.7)
[2024-12-28] MEDS: heparin 5,000 unit/mL INJ 1 mL 5000 UNIT SUBCUT (15:42)
[2024-12-28] MEDS: LORazepam 1 MG/0.5 ML injection IVP (15:43)
[2024-12-28 15:56] LABS: Lactic Sepsis W/Reflex 1.7 mmol/L (0.5-2.2)
[2024-12-28 16:03] LABS: Add Urine Microscopic? YES; Glucose Urine UA Negative (Normal); Nitrate Urine Negative (Negative); Specific Gravity, Urine 1.023 (1.005-1.030)
[2024-12-28 16:04] LABS: UA Slide Review UA Slide Review Perf
[2024-12-28 16:06] LABS: Cholesterol 150 mg/dL (0-200); HDL Cholesterol 56 mg/dL (60-100); Thyroid Stimulating Hormone 0.76 uIU/mL (0.27-4.20); Triglycerides 64 mg/dL (0-150); VLDL Cholestrol Calculation 13 mg/dL (0-30)
[2024-12-28] MEDS: cefTRIAXone 1,000 mg SDV 1000 MG IVP (17:15)
[2024-12-28 17:49] VITALS: BP 110/46; PULSE 76; RESP 18; O2SAT 99
[2024-12-28 17:57] VITALS: BP 100/63; PULSE 80; O2SAT 98
--- NOTE | 2024-12-28 17:57 | PC.NURSE ---
report called to Aliyah, states will call when bed is ready
[2024-12-28 18:35] LABS: Thyroid Stimulating Hormone 0.76 uIU/mL (0.27-4.20); Vitamin B12 226 pg/mL (232-1245)
--- NOTE | 2024-12-28 19:02 | ECG_ITS ---
[facility] Test Date: 2024-12-28 Pat Name: Dayanna Jamison Department: Room: 253 Gender: Female Director [employer]: : 1990 Requested By: Giorgio Ghotra Order Number: [id number] Reading MD: RUBY LICONA Measurements Intervals [place] Rate: 75 P: 43 IL: 173 QRS: 23 QRSD: 87 T: 53 QT: 374 QTc: 419 Interpretive Statements SINUS RHYTHM Compared to ECG 12/28/2024 14:42:50 No significant changes Electronically Signed On 01-01-2025 21:34:32 CDT by RUBY LICONA [email or web address] [id number]
[2024-12-28 19:35] VITALS: BP 102/66; PULSE 76; RESP 21; O2SAT 98
[2024-12-28 19:40] LABS: Estmated Average Glucose 88; Hemoglobin A1C 4.7 % (4.0-6.0)
[2024-12-28 20:00] VITALS: BP 105/72; PULSE 74; RESP 18; TEMP 36.9; O2SAT 99
[2024-12-28 22:00] VITALS: PULSE 0
--- NOTE | 2024-12-28 23:35 | PC.NURSE ---
this nurse took over this pt care at 2300
[2024-12-29] VITALS: BP 97/59; PULSE 86; RESP 17; TEMP 36.8; O2SAT 98
[2024-12-29] MEDS: heparin 5,000 unit/mL INJ 1 mL 5000 UNIT SUBCUT (03:32)
[2024-12-29 04:00] VITALS: BP 95/60; PULSE 65; RESP 14; TEMP 36.6; O2SAT 98
[2024-12-29 05:25] LABS: Hematocrit 37.8 % (36-47); Hemoglobin 11.90 g/dL (11.27-16.99); Mean Corpuscular HGB Conc 31.5 g/dL (30-55); Mean Corpuscular Hemoglobin 27.2 pg (27-33); Mean Corpuscular Volume 86.5 fl (85-98); Nucleated Red Blood Cells % 0 %; Platelet Count 158 10^3/cmm (157-399); Red Blood Count 4.37 10^6/uL (3.85-5.65); White Blood Count 4.46 10^3/uL (3.29-11.43)
[2024-12-29 05:39] LABS: Alanine Aminotransferase 23 U/L (0-33); Albumin Level 3.9 g/dL (3.5-5.2); Alkaline Phosphatase 48 U/L (35-105); Anion Gap 14.9 (5-19); Aspartate Amino Transferase 24 U/L (0-32); Blood Urea Nitrogen 15 mg/dL (6-20); Calcium 9.3 mg/dL (8.5-10.5); Carbon Dioxide 22 mmol/L (22-29); Chloride 105 mmol/L (98-107); Creatinine Clr Calc Pharmacy 130.5132; Globulin 2.1 g/dL (1.3-4.6); Glucose 99 mg/dL (65-115); Magnesium 2.1 mg/dL (1.7-2.3); Osmolality Calculated 287 mOsm/kg (285-295); Potassium 3.9 mmol/L (3.5-5.1); Sodium 138 mmol/L (136-145); Total Protein 6.0 g/dL (6.6-8.7)
[2024-12-29 05:59] VITALS: PULSE 63
[2024-12-29 07:47] VITALS: BP 96/66; PULSE 69; RESP 16; TEMP 36.8; O2SAT 97
--- NOTE | 2024-12-29 08:00 | PC.NURSE ---
In room to introduce myself and talk about the plan for the day. Patient asking if she can have regular food and if she is possibly going home today. Patient has clear speech with no stuttering noted.
--- OUTSIDE RECORDS SUMMARY | 2024-12-29 08:54 | XMS_ITS | Clinical Summary ---
Author Organization [facility] Address [address] 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
--- NOTE | 2024-12-29 10:43 | PC.CHAP ---
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 visit [] Patient/Family/Request visit [] Outpatient visit [] Follow-up visit [] Physician referral [] Code/Alert [x] Routine visit [] Staff referral [] Actively dying [] Patient sleeping [] Family support [] [] Out of room [] Palliative care [] [] Receiving care in room [] Pre-surgical visit [] Trauma [] Long length of stay [] ICU visit [] Other: Relational/Emotional Strength [] Patient feels connected with others/family/visitors/staff [] Distress [] Loneliness/isolation [] Abandonment Spirituality of Patient [] Person of Kassy [] Attends Uatsdin of their Kassy [] Believes in Prayer [] Reads Bible or Mandaeism materials [x] There are Spiritual issues to be addressed 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 [] Prayer [] Active listening [] Non-anxious presence [] Spiritual/emotional support [] Crisis/trauma care [] Spiritual counseling [] Bereavement support [] Provided bereavement packet [] Provided Bible/devotional materials [] Provided toy/stuffed animal, coloring book to patient or family member [] Provided Communion [] Anointing/Mound [] Salvation [] Completed spiritual assessment [] Other: Impact on Illness or Injury [] Angry [] Fearful [] Anxious [] Often cries [] Exhaustion [] Unable to work [] Unable to attend mormon [] Unable to walk/stand [] Unable to read [] Unable to drive [] Unable to eat/drink [] Unable to sleep [] Unable to be with family [] Patient intubated [] Other: Summary Time spent with patient
[2024-12-29 11:08] VITALS: BP 101/70; PULSE 66; RESP 16; TEMP 36.6; O2SAT 98
--- NOTE | 2024-12-29 14:01 | P.DS_ITS ---
Discharge Providers Date of Admission: 12/28/24 17:46 Date of Discharge: December 29, 2024 Attending Provider at Admission: Laurel Lind MD Attending Provider at Discharge: Laurel Lind MD Primary Care Provider: Daysi Hernandez MD Diagnoses at Discharge Discharge Diagnosis 1. Numbness and tingling: Status: Resolved 2. History of stroke: Status: Acute 3. Epilepsy: Status: Acute 4. UTI (urinary tract infection): Status: Acute 5. Headache: Status: Resolved 6. Tourette's: Status: Acute 7. Vocal tic disorder: Status: Acute Reason for Visit Reason for Visit: stroke like symptoms (no speech) Brief History: Dayanna Jamison is a 34 year old female With past medical history of photosensitive epilepsy, possible Tourette's syndrome, vocal tics (as per patient's daughter) stroke 3 years ago, presented to the hospital today with complaint of right arm numbness and tingling. She states she went to watch [employer] last night with her daughter and in the morning woke up with a headache. Since then she has been stuttering. Daughter states that patient was trying to speak however words were not really coming out or they were coming out in a stuttering format. Patient had a stroke 3 years ago and was at [facility] at that time. She follows with [place] [facility] and last saw him 1 year ago. Most of the history is given by the daughter who is at bedside as patient is unable to speak clearly due to his daughter. Patient was requesting to eat. Patient was seen by telemetry stroke service who informed ER doctor that this is most likely not a stroke. Their differentials include possible partial complex seizure versus complex migraine. Daughter states patient was supposed to follow-up with Dr. Boyce however they could not get an appointment somehow. Otherwise she is pretty healthy. Denies nausea vomiting diarrhea abdominal pain chest pain. Hospital Course Hospital Course Patient was admitted for right-sided numbness stuttering. Does have a history of vocal tics/Tourette's. History of photosensitive epilepsy as per her daughter. Possible UTI on admission. Unsure if she had a questionable seizure in the ER however was given 1 mg Ativan. She was admitted mainly for observat ion. She was seen by telestroke service from [facility]. They recommended we just watch her overnight. Symptoms did not recur. All her symptoms resolved by day 2. Headache resolves as well. She most likely had a complex migraine and had symptomatic stuttering numbness secondary to headache. She was talking normally and neuroexam essentially normal at time of discharge. Patient requesting to go home. Echo was still pending however she requested discharge. We told her we will call her if echo results are abnormal. She was discharged home in stable condition to follow-up with neurology as an outpatient. Patient agreeable. Physical Exam Narrative: General: Alert oriented x3, HEENT: Normocephalic, atraumatic, EOMI, breathing room air Cardio: Regular rate rhythm, normal S1-S2, Respiratory: Clear to auscultation bilaterally no wheezes no rhonchi GI: Abdomen soft, nontender, nondistended, bowel sounds + Extremities: No edema bilateral lower extremities Neuro: Grossly nonfocal, Discharge Data Studies Completed and Pending Completed Studies During Hospitalization Category Date Time Status CT head thrombolytic 41249 Stat Cat Scan 12/28/24 14:24 Completed MR head wo con* [id number] Stat MRI 12/29/24 17:46 Completed CV carotid duplex BI* [id number] Stat Ultrasound 12/29/24 17:46 Completed Pending at discharge Category Date Time Status Urine Culture Stat Lab 12/28/24 14:49 Results CV. echo complete* [id number] Stat Ultrasound 12/29/24 17:42 Taken Radiology Impressions Head CT 12/28/24 14:24 IMPRESSION: 1. No acute intracranial abnormality. ASSESSMENT: ASPECTS (Linnea Stroke Program Early CT Score) is 10. ADDENDUM: 12/28/24 [id number] The findings were verbally communicated by telephone with Dr. ORTIZ at 2:46 PM CDT on 12/28/2024. Carotid Doppler Study 12/29/24 17:46 IMPRESSION: No carotid arterial stenosis. REFERENCES: SRU CRITERIA. The degree of internal carotid artery stenosis is based on criteria defined by the Society of Radiologists in Ultrasound (SRU). Normal is no stenosis. Mild is less than 50% stenosis. Moderate is 50-69% stenosis. Severe is greater than 69% stenosis to near occlusion. Near occlusion is a markedly narrowed lumen. Total occlusion is no detectable patent lumen. Reference: Dominic Benson, et al. Carotid Artery Stenosis: Comer-Scale and Doppler US Diagnosis-Society of Radiologists in Ultrasound Consensus Conference. Radiology 2003; 229:340-346. Head MRI 12/29/24 17:46 IMPRESSION: Unremarkable appearance of the brain. Laboratory Results WBC 4.46 10^3/uL (3.29-11.43) 12/29/24 04:27 RBC 4.37 10^6/uL (3.85-5.65) 12/29/24 04:27 Hgb 11.90 g/dL (11.27-16.99) 12/29/24 04:27 Hct 37.8 % (36-47) 12/29/24 04:27 MCV 86.5 fl (85-98) 12/29/24 04:27 MCH 27.2 pg (27-33) 12/29/24 04:27 MCHC 31.5 g/dL (30-55) 12/29/24 04:27 RDW 13.2 % (12.1-15.1) 12/29/24 04:27 Plt Count 158 10^3/cmm (157-399) 12/29/24 04:27 MPV 10.9 fL (7.4-10.4) H 12/29/24 04:27 Neut % (Auto) 50.3 % 12/29/24 04:27 Lymph % (Auto) 38.3 % 12/29/24 04:27 Harper % (Auto) 6.7 % 12/29/24 04:27 Eos % (Auto) 3.6 % 12/29/24 04:27 Baso % (Auto) 0.9 % 12/29/24 04:27 Neut # (Auto) 2.24 10^3/uL (1.8-7.7) 12/29/24 04:27 Lymph # (Auto) 1.7 10^3/uL (0.8-4.8) 12/29/24 04:27 Harper # (Auto) 0.3 10^3/uL (0.2-0.9) 12/29/24 04:27 Eos # (Auto) 0.2 10^3/uL (0.0-0.8) 12/29/24 04:27 Baso # (Auto) 0.0 10^3/uL (0.0-0.1) 12/29/24 04:27 Nucleated RBC % (auto) 0 % 12/29/24 04:27 Nucleated RBCs # 0.0 /100WBC 12/29/24 04:27 PT 14.10 SECONDS (12.1-14.9) 12/28/24 14:45 INR 1.02 (0.8-1.2) 12/28/24 14:45 APTT 27.0 SECONDS (23.9-36.7) 12/28/24 14:45 Sodium 138 mmol/L (136-145) 12/29/24 04:27 Potassium 3.9 mmol/L (3.5-5.1) 12/29/24 04:27 Chloride 105 mmol/L (98-107) 12/29/24 04:27 Carbon Dioxide 22 mmol/L (22-29) 12/29/24 04:27 Anion Gap 14.9 (5-19) 12/29/24 04:27 BUN 15 mg/dL (6-20) 12/29/24 04:27 Creatinine 0.6 mg/dL (0.5-0.9) 12/29/24 04:27 GFR Calculation 114.4 mL/min (90-130) 12/29/24 04:27 Glucose 99 mg/dL (65-115) 12/29/24 04:27 POC Glucose 129 mg/dL (70-110) H 12/28/24 14:22 Estimat Average Glucose 88 12/28/24 14:43 Hemoglobin A1c 4.7 % (4.0-6.0) 12/28/24 14:43 Calculated Osmolality 287 mOsm/kg (285-295) 12/29/24 04:27 Lactic Acid 1.7 mmol/L (0.5-2.2) 12/28/24 14:43 Calcium 9.3 mg/dL (8.5-10.5) 12/29/24 04:27 Magnesium 2.1 mg/dL (1.7-2.3) 12/29/24 04:27 Total Bilirubin 0.4 mg/dL (0.15-1.2) 12/29/24 04:27 AST 24 U/L (0-32) 12/29/24 04:27 ALT 23 U/L (0-33) 12/29/24 04:27 Alkaline Phosphatase 48 U/L (35-105) 12/29/24 04:27 Total Protein 6.0 g/dL (6.6-8.7) L 12/29/24 04:27 Albumin 3.9 g/dL (3.5-5.2) 12/29/24 04:27 Globulin 2.1 g/dL (1.3-4.6) 12/29/24 04:27 Triglycerides 64 mg/dL (0-150) 12/28/24 14:43 Cholesterol 150 mg/dL (0-200) 12/28/24 14:43 LDL Cholesterol, Calc 81 mg/dL (50-129) 12/28/24 14:43 Total VLDL Cholesterol 13 mg/dL (0-30) 12/28/24 14:43 HDL Cholesterol 56 mg/dL (60-100) L 12/28/24 14:43 Cholesterol/HDL Ratio 2.68 mg/dL (0.0-4.40) 12/28/24 14:43 Vitamin B12 226 pg/mL (232-1245) L 12/28/24 14:43 TSH 0.76 uIU/mL (0.27-4.20) 12/28/24 14:43 TSH 0.76 uIU/mL (0.27-4.20) 12/28/24 14:43 Prolactin 10.69 ng/mL (4.8-23.3) 12/28/24 14:43 Urine Color Yellow (Yellow) 12/28/24 14:49 Urine Appearance Clear (CLEAR) 12/28/24 14:49 Urine pH 6.5 (5-7) 12/28/24 14:49 Ur Specific [place] 1.023 (1.005-1.030) 12/28/24 14:49 Urine Protein 1+ (Negative) A 12/28/24 14:49 Urine Glucose (UA) Negative (Normal) 12/28/24 14:49 Urine Ketones Trace (Negative) 12/28/24 14:49 Urine Blood 2+ (Negative) A 12/28/24 14:49 Urine Nitrate Negative (Negative) 12/28/24 14:49 Urine Bilirubin Negative (Negative) 12/28/24 14:49 Urine Urobilinogen 1.0 mg/dL (Negative) 12/28/24 14:49 Ur Leukocyte Esterase 2+ (Negative) A 12/28/24 14:49 Urine RBC 11-20 /hpf (0-2) H 12/28/24 14:49 Urine WBC >100 /hpf (0-5) H 12/28/24 14:49 Ur Squamous Epith Cells 6-10 /hpf (0-5) 12/28/24 14:49 Amorphous Sediment Not Reportable 12/28/24 14:49 Urine Bacteria Exceeds /hpf (NONE) 12/28/24 14:49 Hyaline Casts 4.93 /lpf 12/28/24 14:49 Urine Opiates Screen Negative ng/mL (Negative) 12/28/24 14:49 Ur Barbiturates Screen Negative ng/mL (Negative) 12/28/24 14:49 Ur Phencyclidine Scrn Negative ng/mL (Negative) 12/28/24 14:49 Ur Amphetamines Screen Negative ng/mL (Negative) 12/28/24 14:49 U Benzodiazepines Scrn Negative ng/mL (Negative) 12/28/24 14:49 Urine Cocaine Screen Negative ng/mL (Negative) 12/28/24 14:49 U Marijuana (THC) Screen Negative ng/mL (Negative) 12/28/24 14:49 Vitals Last Vital Signs Temp 97.8 F 12/29/24 11:08 Pulse 66 12/29/24 11:08 Resp 16 12/29/24 11:08 BP 101/70 12/29/24 11:08 Pulse Ox 98 12/29/24 11:08 O2 Del Method Room Air 12/29/24 11:08 Discharge Plan Discharge Patient Disposition: Home Condition: Stable Prescriptions: New cyanocobalamin (vitamin B-12) [Vitamin B-12] 1,000 mcg tablet 1,000 mcg PO DAILY Qty: 30 0RF Continued acetaminophen [Tylenol] 325 mg Tablet 325 mg PO QID PRN (Reason: Fever Or Pain) ibuprofen [Advil] 200 mg Tablet 400 mg PO Q6H PRN (Reason: Fever Or Pain) Discharge Order = DC NOW: Discharge Order (Routine); Ordered 12/29/24 Ordered By: Laurel Lind Referrals: Allyssa Boyce MD [Physician, Neurology] - 4-7 days Referral Note: We have notified your physician's clinic of the need for a follow-up appointment to be scheduled. If you have not heard from them within the next 2 business days, please call them directly. Daysi Hernandez MD [Primary Care Provider, [facility]] - 4-7 days Referral Note: We have notified your physician's clinic of the need for a follow-up appointment to be scheduled. If you have not heard from them within the next 2 business days, please call them directly. Discharge Diet: Regular Discharge Activity: Resume usual activity Patient Instructions: Nitrofurantoin (By mouth), Vitamin B-12 (By mouth), Headache - Migraine (Adult), Urinary Tract Infection in Women (DC), Opioid Safety, Patient Portal & Marcin Instructions Discharge Attestations Time Spent in Discharge Care*: less than 30 min Quality Metrics Clinical Quality Measures [ No reported AMI, CVA or VTE this stay] Coding Level of Care Code Acute Code for Chg Fwd Diagnoses Numbness and tingling R20.0; R20.2 History of stroke Z86.73 Epilepsy G40.909 UTI (urinary tract infection) N39.0 Headache R51.9 Tourette's F95.2 Vocal tic disorder F95.8
[2024-12-29 14:15] VITALS: BP 101/70; PULSE 60; RESP 18; TEMP 37; O2SAT 98
--- NOTE | 2024-12-29 14:15 | PC.NURSE ---
Patient ambulated to the nurses station with a steady gait. Patient states, I want to go see fire works am I able to go now. Patient is A&Ox3. Respirations even and non-labored on room air. Patient's speech is clear at this time, no stuttering noted. Discharge instructions reviewed with patient including follow up appointments and medications. Patient ambulated from the floor with a steady gait.
--- NOTE | 2024-12-29 17:42 | USCV_ITS ---
Dayanna Jamison Age: 34 Gender: F : 1990 Exam Date: 12/29/2024 10:39 Ordering Phys: Laurel Lind MD Technologist: Jose Simon [place]am [place] [facility] [place]: stroke workup BP: 96 / 66 HR: 49 Rhythm: Sinus Technical Quality: Adequate MEASUREMENTS (Male / Female) Normal Values 2D ECHO LV Diastolic Diameter PLAX 4.7 cm 4.2 - 5.9 / 3.9 - 5.3 cm IVS Diastolic Thickness 0.8 cm 0.6 - 1.0 / 0.6 - 0.9 cm IVS Systolic Thickness 1.1 cm LVPW Diastolic Thickness 1.1 cm 0.6 - 1.0 / 0.6 - 0.9 cm LVPW Systolic Thickness 1.4 cm LVOT Diameter 2.0 cm LV Ejection Fraction 2D Teich 67.5 % LV Ejection Fraction MOD 4C 58.2 % LV Ejection Fraction MOD 2C 62.4 % LV Ejection Fraction 2C AL 64.2 % LA Diameter 3.0 cm RA Systolic Volume 4C AL 27.9 ml RA Systolic Volume 4C MOD 28.2 ml LA Sys Volume AL 28.6 cm cubed LA Sys Volume Index AL 15.8 cm cubed/m squared Aorta at Sinotubular Diameter 2.1 cm IVC Diameter 1.7 cm M-MODE LA Ao Ratio MM 1.2 AV Cusp Separation MM 1.9 cm DOPPLER AV Peak Velocity 111.0 cm/s LVOT Peak Velocity 80.0 cm/s AV Area Cont Eq vti 1.9 cm squared AV Area Cont Eq pk 2.3 cm squared MV Peak Velocity 93.0 cm/s MV Area PHT 4.3 cm squared Mitral E to A Ratio 1.6 TR Peak Velocity 272.0 cm/s TR Peak Gradient 29.6 mmHg TR Mean Velocity 191.0 cm/s TR Mean Gradient 17.2 mmHg TR Velocity Time Integral 61.7 cm PV Peak Velocity 88.3 cm/s RV Ejection Time 0.3 s FINDINGS Left Ventricle Normal left ventricular size, systolic function and wall thickness, with no regional wall motion abnormalities. Left ventricular ejection fraction is estimated at 60 %. Normal diastolic function. Right Ventricle The right ventricle is normal in size and function. Right Atrium The right atrium is normal in size. Left Atrium The left atrium is normal in size. Mitral Valve Structurally normal mitral valve without significant stenosis or prolapse. There is no mitral regurgitation. Aortic Valve Structurally normal aortic valve without significant sclerosis or stenosis. There is no aortic regurgitation. Tricuspid Valve Structurally normal tricuspid valve without significant stenosis or regurgitation. Pulmonary artery systolic pressure is normal. Pulmonic Valve Trace pulmonary valve regurgitation. Pericardium Normal pericardium without effusion. Aorta Normal ascending aorta dimension. IVC The inferior vena cava appears normal. CONCLUSIONS Normal left ventricular size, systolic function and wall thickness, with no regional wall motion abnormalities. Left ventricular ejection fraction is estimated at 60 %. Normal diastolic function. There is no pericardial effusion. No significant valve abnormalities. Right atrial pressure is around 5 mm of mercury. Edil Flores MD (Electronically Signed) Final Date: 29 December 2024 17:02 S
--- NOTE | 2024-12-29 17:46 | USR_ITS ---
PROCEDURE INFORMATION: Exam: US Duplex Bilateral Extracranial Arteries; Complete; Carotid Arteries Exam date and time: 12/29/2024 10:20 AM Age: 34 years old Clinical indication: Screening exam; Additional info: R/O stenosis TECHNIQUE: Imaging protocol: Real-time duplex ultrasound scan of the bilateral extracranial arteries combining comer scale, color Doppler and spectral waveform analysis with image documentation. Complete exam. Exam focused on the carotid arteries. COMPARISON: CT head thrombolytic [id number] 12/28/2024 2:25 PM FINDINGS: Right common carotid artery: Unremarkable. No occlusion or stenosis. Waveforms are normal. Right internal carotid artery: Unremarkable. No occlusion or stenosis. Waveforms are normal. Right ICA/CCA ratio: Within normal limits. Right external carotid artery: No stenosis in the origin. Right vertebral artery: Unremarkable. Antegrade flow. Left common carotid artery: Unremarkable. No occlusion or stenosis. Waveforms are normal. Left internal carotid artery: Unremarkable. No occlusion or stenosis. Waveforms are normal. Left ICA/CCA ratio: Within normal limits. Left external carotid artery: No stenosis in the origin. Left vertebral artery: Unremarkable. Antegrade flow. US/CV carotid duplex BI* [id number] IMPRESSION: No carotid arterial stenosis. REFERENCES: SRU CRITERIA. The degree of internal carotid artery stenosis is based on criteria defined by the Society of Radiologists in Ultrasound (SRU). Normal is no stenosis. Mild is less than 50% stenosis. Moderate is 50-69% stenosis. Severe is greater than 69% stenosis to near occlusion. Near occlusion is a markedly narrowed lumen. Total occlusion is no detectable patent lumen. Reference: Dominic Benson, et al. Carotid Artery Stenosis: Comer-Scale and Doppler US Diagnosis-Society of Radiologists in Ultrasound Consensus Conference. Radiology 2003; 229:340-346.
--- NOTE | 2024-12-29 17:46 | MRR_ITS ---
PROCEDURE INFORMATION: Exam: MR Head Without Contrast Exam date and time: 12/29/2024 8:47 AM Age: 34 years old Clinical indication: Altered mental status/memory loss and speech disturbance; Confusion or disorientation; Dysphasia; Additional info: R/O stroke TECHNIQUE: Imaging protocol: Magnetic resonance imaging of the head without contrast. COMPARISON: CT head thrombolytic [id number] 12/28/2024 2:25 PM FINDINGS: Brain: There is no evidence of acute parenchymal hemorrhage, extra-axial collection, or acute infarction. There is no mass effect, midline shift, or downward herniation. The white matter appears normal. Cerebral ventricles: Normal. No ventriculomegaly. Bones: Unremarkable. Paranasal sinuses: Normal as visualized. No acute sinusitis. Mastoid air cells: Normal as visualized. No mastoid effusion. Orbital cavities: Unremarkable. Soft tissues: Unremarkable. MR/MR head wo con* [id number] IMPRESSION: Unremarkable appearance of the brain.
== END 2024-12-29 14:15 | disposition home or self-care (01) ==
LOC: ER 17:46 → MEDSURG 12-29 04:41
PROVIDERS: Admitting Provider Internal Medicine; Emergency Provider Family Medicine; PCP Family Medicine; Visit Provider Internal Medicine
DX: R20.0 Anesthesia of skin (principal); R20.2 Paresthesia of skin; Z86.73 Personal history of transient ischemic attack (TIA), and cerebral infarction without residual deficits; G40.909 Epilepsy, unspecified, not intractable, without status epilepticus; N39.0 Urinary tract infection, site not specified; R51.9 Headache, unspecified; F95.2 Tourette's disorder; F95.8 Other tic disorders; F17.200 Nicotine dependence, unspecified, uncomplicated
CPT/HCPCS: 36415; 36416; 70450; 70551; 80053; 80061; 80306; 81001; 82607; 82962; 83036; 83605; 83735; 84146; 84443; 85025; 85610; 85730; 87077; 87086; 87186; 93005; 93306; 93880; 96372; 96374; 96375; 97161; 99285; G0378; J0696; J1644; J2060; J9999

== ENCOUNTER → 2025-01-14 09:32 | Outpatient (BNVA) | payer MEDICAID, SELFPAY | PROVIDERS: PCP Family Medicine; Referring Provider Family Medicine; Visit Provider Psychiatry & Neurology Neurology | DX: G40.909 Epilepsy, unspecified, not intractable, without status epilepticus (principal); F95.8 Other tic disorders; Z86.73 Personal history of transient ischemic attack (TIA), and cerebral infarction without residual deficits | CPT/HCPCS: 36415; 82306; 82746; 83090; 83921; 85300; 85302; 85305; 85610; 85613; 85730; 86146; 86147 ==

== ENCOUNTER 2025-01-23 10:15 | Oncology outpatient (recurring) (ONCR) | payer MEDICAID, SELFPAY ==
--- NOTE | 2025-01-23 07:15 | MR_ITS ---
WS: [id number] MRI BRAIN WITH AND WITHOUT CONTRAST HISTORY: F95.8 - Other tic disorders COMPARISON: 12/29/2024, 01/05/2010 TECHNIQUE: Multiplanar imaging performed through the brain with MultiHance 13 ml's IV. No acute infarcts are seen. Comer-white matter differentiation is well preserved. No atrophy. Normal hippocampal formations. No susceptibility artifacts or prior lacunar infarcts. Ventricles and extra-axial spaces are normal. Clivus and pituitary gland are normal. Visualized posterior fossa and brainstem are also normal. Postcontrast images are negative for masses or vascular malformations. Dural venous sinuses are normal. Paranasal sinuses: Well aerated with no significant disease. Mastoid air cells: Normal. Calvarium and scalp: Normal. MR/MR head wo/w con [id number] IMPRESSION: 1. Normal MRI brain with contrast. 2. No areas of abnormal enhancement or demyelination.
[2025-01-23] MEDS: gadobenate dimeglumine 20 mL vial 13 ML IV (10:56)
== END 2025-01-24 23:59 | disposition home or self-care (01) ==
PROVIDERS: PCP Family Medicine; Visit Provider Internal Medicine Medical Oncology
DX: F95.8 Other tic disorders (principal)
CPT/HCPCS: 70553

== ENCOUNTER 2025-02-14 11:45 | Oncology outpatient (recurring) (ONCR) | payer MEDICAID, SELFPAY ==
[2025-01-31] MEDS: cyanocobalamin 1,000 mcg/mL SDV 1000 MCG IM (10:51)
[2025-01-31 11:00] VITALS: BP 116/68; PULSE 64; RESP 16; TEMP 36.8; O2SAT 97
[2025-02-07] MEDS: cyanocobalamin 1,000 mcg/mL SDV 1000 MCG IM (11:31)
== END 2025-02-24 23:59 | disposition home or self-care (01) ==
PROVIDERS: PCP Family Medicine; Visit Provider Internal Medicine Medical Oncology
DX: Z53.9 Procedure and treatment not carried out, unspecified reason (principal)
CPT/HCPCS: 96372; 96401; J3420

== ENCOUNTER 2025-03-04 09:07 | Oncology outpatient (recurring) (ONCR) | payer MEDICAID, SELFPAY ==
[2025-02-26] MEDS: cyanocobalamin 1,000 mcg/mL SDV 1000 MCG IM (09:39)
[2025-03-04 09:13] VITALS: BP 101/73; PULSE 90; RESP 18; TEMP 36.8; O2SAT 100
[2025-03-04] MEDS: cyanocobalamin 1,000 mcg/mL SDV 1000 MCG IM (09:22)
== END 2025-03-26 23:59 | disposition home or self-care (01) ==
PROVIDERS: PCP Family Medicine; Visit Provider Internal Medicine Medical Oncology
DX: D51.9 Vitamin B12 deficiency anemia, unspecified; Z79.899 Other long term (current) drug therapy; Z53.9 Procedure and treatment not carried out, unspecified reason
CPT/HCPCS: 96372; J3420

== ENCOUNTER → 2025-03-05 09:44 | Outpatient (BNVA) | payer MEDICAID, SELFPAY | PROVIDERS: PCP Family Medicine; Referring Provider Psychiatry & Neurology Neurology; Visit Provider Internal Medicine Cardiovascular Disease | DX: R07.9 Chest pain, unspecified (principal) | CPT/HCPCS: 93005 ==

== ENCOUNTER 2025-03-21 07:09 | Day surgery (SDC) | payer MEDICAID, SELFPAY ==
[2025-03-21 07:24] VITALS: BP 97/70; PULSE 83; RESP 16; TEMP 36.3; O2SAT 98; BMI 23.0
--- NOTE | 2025-03-21 07:34 | P.ANESASSM_ITS ---
Pre-Anesthetic Assessment Height/Weight: Height 1.6 m Weight 58.967 kg Temp Pulse Resp BP Pulse Ox O2 Del Method 97.3 F L 83 16 97/70 98 Room Air 03/21/25 07:24 03/21/25 07:24 03/21/25 07:24 03/21/25 07:24 03/21/25 07:24 03/21/25 07:24 Preop Diagnosis: cardiac arrhythmia Operation Date: 03/21/25 08:00 Proposed Procedures p ROSENDA - Echocardiogram Transesophageal(Not Applicable) - Cruz Ledezma MD Was Beta Christal taken within 24 hours: N/A Was Clonidine taken within 24 hours: N/A Last intake: Intake Last Liquid Date 03/20/25 Last Liquid Time 20:00 Last Solid Date 03/20/25 Last Solid Time 20:00 Social No alcohol vapes daily Exam alert and oriented x 3 Airway Submandibular: within normal limits Cervical ROM: within normal limits Mallampati: Class I Dentition: false (left at home) History/ROS No significant history except as noted Pulmonary None reported CV/HEM Stable Angina (2-3 months ago) and Arrythmia (had CVA on 12/28/2024; previous CVA 2021) None reported Hepatic None reported GI None reported Metabolic None reported Musc/skel None reported Neuropsych Anxiety, Cerebrovascular Accident (had two previous CVAs), Headache and Seizure (physical Tourette's- denies seizure history) Anesthetic Plan ASA status: 3 Anesthesia: MAC Risk of > 500 ml blood loss (7ml/kg in children): No Medications/Allergies Home Medications ?Medication ?Instructions ?Recorded ?Confirmed ?Last Taken ?Type acetaminophen 325 mg tablet 325 mg PO QID PRN Fever Or Pain 12/28/24 03/21/25 Unknown History (Tylenol) Allergies Allergy/AdvReac Type Severity Reaction Status Date / Time Penicillins Allergy anaphylais Verified 03/21/25 07:23 [facility] Anesthesia Surgical History Hx of appendectomy Hx of hysterectomy Family History Denies family history of Diabetes Dementia Cancer Hypertension Social History Smoking and tobacco/nicotine status: current every day tobacco/nicotine user Alcohol intake: never 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
--- NOTE | 2025-03-21 07:38 | USCV_ITS ---
Dayanna Jamison Age: 34 Gender: F : 1990 Exam Date: 03/21/2025 08:31 Ordering Phys: Cruz Ledezma MD ([email or web address]) Technologist: Exam Location: [facility] [place] Indication: cva BP: / HR: Rhythm: Sinus Technical Quality: Adequate MEASUREMENTS (Male / Female) Normal Values Medications Patient given IV sedation by anesthesia service, for details please refer to the anesthesia report. Complications None. Proc. Components ROSENDA was performed at multiple levels. The patient tolerated the procedure well and there were no complications. FINDINGS Left Ventricle Normal left ventricular size, systolic function and wall thickness, with no regional wall motion abnormalities. Left ventricular ejection fraction is estimated at 60%. Right Ventricle Normal right ventricular size and systolic function. Right Atrium Normal right atrial size. Left Atrium Normal left atrial size. No left atrial mass or thrombus visualized. LA Appendage Normal left atrial appendage. Normal flow velocities in the left atrial appendage. No thrombus visualized in the left atrial appendage. IA Septum Mobile atrial septum. No shunt by color doppler. 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 Mitral Valve Structurally normal mitral valve. No mitral valve regurgitation. Aortic Valve Structurally normal trileaflet aortic valve. No aortic valve stenosis. No aortic valve regurgitation. Tricuspid Valve Trace tricuspid valve regurgitation. Pulmonic Valve No pulmonary valve stenosis. No pulmonary valve regurgitation. Pericardium No pericardial effusion. Aorta Normal size aortic root and proximal ascending aorta. Normal proximal descending aorta size. CONCLUSIONS 1. Normal ventricular and valvular function. 2. No intracadiac mass or thrombus 3. Mobile atrial septum. No shunt by color doppler. 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 Cruz Ledezma MD, [facility] (Electronically Signed) Final Date: 22 March 2025 00:19 S
--- NOTE | 2025-03-21 07:51 | W.PM.OPSUD ---
Surgery/Procedure H&P Update DATE OF PROCEDURE: March 21, 2025 DATE H&P PERFORMED: 03/05/25 PREOP DIAGNOSIS: slurred speech PRIMARY INDICATION FOR PROCEDURE: slurred speech, possible transient ischemic attack PLANNED PROCEDURE: Operation Date: 03/21/25 08:00 Proposed Procedures p ROSENDA - Echocardiogram Transesophageal(Not Applicable) - Cruz Ledezma MD
[2025-03-21 07:55] LABS: Hematocrit 40.5 % (36-47); Hemoglobin 13.80 g/dL (11.27-16.99); Mean Corpuscular HGB Conc 34.1 g/dL (30-55); Mean Corpuscular Hemoglobin 28.0 pg (27-33); Mean Corpuscular Volume 82.2 fl (85-98); Nucleated Red Blood Cells % 0 %; Platelet Count 224 10^3/cmm (157-399); Red Blood Count 4.93 10^6/uL (3.85-5.65); White Blood Count 3.93 10^3/uL (3.29-11.43)
[2025-03-21 08:13] LABS: Anion Gap 15.1 (5-19); Blood Urea Nitrogen 8 mg/dL (6-20); Calcium 9.1 mg/dL (8.5-10.5); Carbon Dioxide 22 mmol/L (22-29); Chloride 105 mmol/L (98-107); Creatinine Clr Calc Pharmacy 137.7199; Glucose 95 mg/dL (65-115); Osmolality Calculated 284 mOsm/kg (285-295); Potassium 4.1 mmol/L (3.5-5.1); Sodium 138 mmol/L (136-145)
--- NOTE | 2025-03-21 08:42 | PM.PROC ---
Procedure Note: Date of procedure: 03/21/25 Pre-procedure diagnosis: slurred speech Post-procedure diagnosis: other Procedure: After numbing posterior pharynx with cetacaine spray and positioning patient on her left side, the patient was sedated by Anesthesiololgy. The transesophageal probe was then introduced into the mid esophagus. Multiple views were taken of the heart. 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 Performing Provider: Cruz Ledezma Complications: none Condition: stable Coding Level of Care Code Acute Code for Chg Fwd
[2025-03-21 08:44] VITALS: BP 98/64; PULSE 50; RESP 16; TEMP 36.3; O2SAT 98
[2025-03-21 08:55] VITALS: BP 103/63; PULSE 86; RESP 16; O2SAT 95
--- NOTE | 2025-03-21 09:15 | ANE.PACU2 ---
Inpatient post-anesthesia follow up: Airway intact: Yes Vital signs: Temperature 97.4 F Pulse Rate 86 Respiratory Rate 16 Blood Pressure 103/63 Pulse Oximetry 95 Oxygen Delivery Me thod Room Air Oxygen Flow Rate Fraction of Inspir ed Oxygen Hydration adequate: Yes Nausea and vomiting: No Pain level: 1 Mental status: Baseline
== END 2025-03-21 09:17 | disposition home or self-care (01) ==
PROVIDERS: PCP Family Medicine; Visit Provider Internal Medicine Cardiovascular Disease
PROC: (CPT 93312; principal; 2025-03-21 08:00)
DX: Z86.79 Personal history of other diseases of the circulatory system (principal); I07.1 Rheumatic tricuspid insufficiency
CPT/HCPCS: 80048; 85025; 93312; 93320; 93325; J7030; J9999

== ENCOUNTER 2025-04-01 08:28 | Oncology outpatient (recurring) (ONCR) | payer MEDICAID, SELFPAY ==
[2025-04-01] MEDS: cyanocobalamin 1,000 mcg/mL SDV 1000 MCG IM (08:37)
== END 2025-04-26 23:59 | disposition home or self-care (01) ==
PROVIDERS: PCP Family Medicine; Visit Provider Internal Medicine Medical Oncology
DX: D51.9 Vitamin B12 deficiency anemia, unspecified (principal); Z79.899 Other long term (current) drug therapy
CPT/HCPCS: 96372; J3420

== ENCOUNTER → 2025-04-23 15:57 | Outpatient (BNVA) | payer MEDICAID, SELFPAY | PROVIDERS: PCP Family Medicine; Visit Provider Emergency Medicine | DX: B34.9 Viral infection, unspecified (principal); J02.9 Acute pharyngitis, unspecified | CPT/HCPCS: 87071; 87400; 87426; 87880 ==

== ENCOUNTER 2025-04-28 11:37 | Emergency (ER) | payer MEDICAID, SELFPAY ==
[2025-04-28 11:41] VITALS: BP 135/97; PULSE 91; RESP 16; TEMP 36.7; O2SAT 100
--- OUTSIDE RECORDS SUMMARY | 2025-04-28 11:43 | XMS_ITS | Clinical Summary ---
Author Organization [facility] Address [address] [place]: Epic Prelude ADT [place] [id number] Care Team Providers Care Launch Steward Name Role Phone Unavailable Primary Care Provider [...] Active Active Problems No known active problems Family History Medical History Relation Name Comments [...] on file Legal Sex Female 4:01 AM [employer] Gender Identity Not on file Sexual Orientation [...] 07/09/1991, Additional history exists HPV/Cotest (21-29) 11/18/2011 HPV VACCINES (1 - 3-dose SCD M series) 2017 CERVICAL CANCER SCREENING 2020 HPV/Cotest (30-65) 2020 PAP SMEAR 2020 INFLUENZA VACCINE (#1) 2025 08/12/2015 HEPATITIS B VACCINES Completed 10/27/1995, 03/25/1995, 02/14/[address] [place] [address] [place] [address] [employer] MEDICAID Advance Directives For more information, please contact: [phone] * Full Code (Latest Code Status on File) Date Activated Date Inactivated Comments 12/10/2022 1:55 PM 12/10/2022 6:09 PM
--- OUTSIDE RECORDS SUMMARY | 2025-04-28 11:43 | XMS_ITS | Data Portability ---
Author Organization MALGORZATA [facility], Debbie, [facility] Address [address] [address] Assessment No assessment recorded. Plan of Treatment Reminders Order Date Submit Date Provider Last Modified By Organization Details Last Modified Time Details Appointments None recorded. Lab urinalysis, dipstick [address] ([facility]), [address] [place] [address], [address], 4 11:17:53 urinalysis, complete [address] ([facility]), [address] [place], [address], 5 17:32:42 urinalysis, complete 2023 024 [facility] ([facility]), [address] [place], [address], 4 12:42:23 culture, urine 2023 024 [employer] [facility], [address] [place] [address] 248, [address] [place], [address], 4 04:24:47 TSH, serum or plasma 2023 024 [facility], [address] [place] [address] 248, [address] [place], [address], 4 15:04:06 CBC 2023 024 SHANELLE [facility], [address] [facility], [address], [place], [address], 4 13:55:38 CMP, serum or plasma 2023 024 SHANELLE [employer] [facility], [address] [facility] 248, [address] [place], [address], 4 04:24:45 Referral neurologist referral - el Boyce, the other neuro in her office. 2024 025 [email or web address] 2 [facility], [address] [place], [address], 5 13:31:27 neurologist referral [email or web address] [place] [address] Neurology, [address] [place], [address], 4 13:30:10 Procedures None recorded. Surgeries None recorded. Imaging None recorded. Medication Orders Macrobid 100 mg capsule 2023 025 [facility] 15, [address], [place], [address], 5 15:06:17 Macrobid 100 mg capsule 2023 024 [email or web address] [facility] 15, [address], [place], [address], 5 15:06:07 prednisone 20 mg tablet 2022 024 [facility], [address], [place], [address], 4 11:51:46 doxycycline hyclate 100 mg capsule 2022 024 [facility], [address], [place], [address], 11:51:44 Patient TargetsNo targets recorded. Patient InstructionsNo [...] 4.5 x10 4.0-10 .5 Not Available [facility] [address] [facility] 1, [place], [address], 08/18/2023 13:55:38 08/18/19 24 08/18/2023 CBC RBC 4.81 x10 3.50-5 .50 Not Available [facility] [address] [facility] 1, [place], [address], 08/18/2023 13:55:38 08/18/19 24 08/18/2023 CBC HGB 13.6 g/dL 12.0-1 6.0 Not Available [facility] [address] [facility] 1, [place], [address], 08/18/2023 13:55:38 08/18/19 24 08/18/2023 CBC HCT 38.8 % 37.0-4 7.0 Not Available [facility] [address] [facility] 1, [place], [address], 08/18/2023 13:55:38 08/18/19 24 08/18/2023 CBC MCV 80.7 fL 80.0-9 9.9 Not Available [facility] [address] [facility] 1, [place], [address], 08/18/2023 13:55:38 08/18/19 24 08/18/2023 CBC MCH 28.3 pg 27.0-3 2.0 Not Available [facility] [address] [facility] 1, [place], [address], 08/18/2023 13:55:38 08/18/19 24 08/18/2023 CBC MCHC 35.1 g/dL 32.0-3 6.0 Not Available [facility] [address] [facility] 1, [place], [address], 08/18/2023 13:55:38 08/18/19 24 08/18/2023 CBC RDW 14.5 % 11.5-1 4.5 Not Available [facility] [address] [facility] 1, [place], [address], 08/18/2023 13:55:38 08/18/19 24 08/18/2023 CBC plt 218.9 x10 140.0- 451.0 Not Available [facility] [address] [facility] 1, [place], [address], 08/18/2023 13:55:38 08/18/19 24 08/18/2023 CBC lymphocytes % 34.6 % 20.0-5 0.0 Not Available [facility] [address] [place] [facility] 1, [place], [address], 08/18/2023 13:55:38 08/18/19 24 08/18/2023 CBC granulcytes % 58.8 % 30.0-7 0.0 Not Available [facility] [address] [place] [facility] 1, [place], [address], 08/18/2023 13:55:38 08/18/19 24 08/18/2023 CBC monocytes % 4.8 % 2.0-10 .0 Not Available [facility] [address] [address], [place], [address], 08/18/2023 13:55:38 08/18/19 24 08/18/2023 CBC granulcytes# 2.7 x10 Not Martha ilable [facility] [address] [address], [place], [address], 08/18/2023 13:55:38 08/18/19 24 08/18/2023 CBC lymphocytes # 1.6 x10 Not Available [place] [address] [address], [place], [address], 08/18/2023 13:55:38 08/18/19 24 08/18/2023 CBC monocytes # 0.2 x10 Not Avai lable [facility] [address] [address], [place], [address], 08/18/2023 13:55:38 08/18/19 24 08/19/2023 COMPR EHENS JO ANN METAB OLIC PANEL glucose 71 mg/dL 65-99 normal Fasti ng refer ence inter negro Not Available [address] [address] [place], [address], 08/19/2023 04:24:45 08/18/19 24 08/19/2023 COMPR EHENS JO ANN METAB OLIC PANEL urea nitrogen (BUN) 7 mg/dL 7-25 normal Not Available [facility] [address] [address] [place], [address], 08/19/2023 04:24:45 08/18/19 24 08/19/2023 COMPR EHENS JO ANN METAB OLIC PANEL creatinine 0.55 mg/dL 0.50-0 .97 normal Not Available [employer] [facility] [address] [address] [place], [address], 08/19/2023 04:24:45 08/18/19 24 08/19/2023 COMPR EHENS JO ANN METAB OLIC PANEL eGFR 125 mL/mi n/1.7 3m2 > or = 60 normal Not Available [address], [address], 08/19/2023 04:24:45 08/18/19 24 08/19/2023 COMPR EHENS JO ANN METAB OLIC PANEL BUN/creatini ne ratio SEE NOTE: (calc ) 6-22 Not Repor ann marie: BUN and Creat inine are withi n refer ence range . Not Available [address], [address], 08/19/2023 04:24:45 08/18/19 24 08/19/2023 COMPR EHENS JO ANN METAB OLIC PANEL sodium 139 mmol/ L 135-14 6 normal Not Available [address], [address], 08/19/2023 04:24:45 08/18/19 24 08/19/2023 COMPR EHENS JO ANN METAB OLIC PANEL potassium 4.3 mmol/ L 3.5-5. 3 normal Not Available [address], [address], 08/19/2023 04:24:45 08/18/19 24 08/19/2023 COMPR EHENS JO ANN METAB OLIC PANEL chloride 102 mmol/ L 98-110 normal Not Available [address] [place], [address], 08/19/2023 04:24:45 08/18/19 24 08/19/2023 COMPR EHENS JO ANN METAB OLIC PANEL carbon dioxide 30 mmol/ L 20-32 normal Not Available [address], [address], 08/19/2023 04:24:45 08/18/19 24 08/19/2023 COMPR EHENS JO ANN METAB OLIC PANEL calcium 9.8 mg/dL 8.6-10 .2 normal Not Available [address], [address], 08/19/2023 04:24:45 08/18/19 24 08/19/2023 COMPR EHENS JO ANN METAB OLIC PANEL protein, total 6.8 g/dL 6.1-8. 1 normal Not Available [address], [address], 08/19/2023 04:24:45 08/18/19 24 08/19/2023 COMPR EHENS JO ANN METAB OLIC PANEL albumin 4.9 g/dL 3.6-5. 1 normal Not Available [address], [address], 08/19/2023 04:24:45 08/18/19 24 08/19/2023 COMPR EHENS JO ANN METAB OLIC PANEL globulin 1.9 g/dL_ (calc ) 1.9-3. 7 normal Not Available [address], [address], 08/19/2023 04:24:45 08/18/19 24 08/19/2023 COMPR EHENS JO ANN METAB OLIC PANEL albumin/glob ulin ratio 2.6 (calc ) 1.0-2. 5 high Not Available [address], [address], 08/19/2023 04:24:45 08/18/19 24 08/19/2023 COMPR EHENS JO ANN METAB OLIC PANEL bilirubin, total 0.5 mg/dL 0.2-1. 2 normal Not Available [address], [address], 08/19/2023 04:24:45 08/18/19 24 08/19/2023 COMPR EHENS JO ANN METAB OLIC PANEL alkaline phosphatase 53 U/L 31-125 normal Not Available [address] [address] [place], [address], 08/19/2023 04:24:45 08/18/19 24 08/19/2023 COMPR EHENS JO ANN METAB OLIC PANEL AST 16 U/L 10-30 normal Not Available [address] [address] [place], [address], 08/19/2023 04:24:45 08/18/19 24 08/19/2023 COMPR EHENS JO ANN METAB OLIC PANEL ALT 14 U/L 6-29 normal Not Available [address] [address] [place], [address], 08/19/2023 04:24:45 08/18/19 24 08/19/2023 TSH TSH 1.05 mIU/L normal Refer ence Range > or = 20 Years 0.40- 4.50 Pregn abhijit Range s First trime ster 0.26- 2.66 Secon d trime ster 0.55- 2.73 Third trime ster 0.43- 2.91 Not Available [address] [address] [place], [address], 08/19/2023 05:28:17 08/18/19 24 08/21/2023 CULTU RE, URINE , ROUTI NE culture, urine, routine SEE NOTE abnormal CULTU RE, URINE , ROUTI NE Micro Numbe r: [id number] Test Statu s: Final Speci men [...] <=4 TRIME THOPR IM/FOFANA LFA S <=20 S=Susannah cepti ble I=Int ermed iate R=Res istan [...] lexin and lorac arbef . Not Available [facility] [address] [place], [address], 08/21/2023 01:39:31 08/18/19 24 08/18/2023 urina lysis , compl ete color yellow Not Available [facility] ([facility]) [address] [place] [address], [address], 08/18/2023 12:11:39 08/18/19 24 08/18/2023 urina lysis , compl ete clarity slight ly cloudy clear abnormal Not Available [facility] ([facility]) [address] [place], [address], 08/18/2023 12:11:39 08/18/19 24 08/18/2023 urina lysis , compl ete glucose NG negati ve Not Available [facility] ([facility]) [address] [place], [address], 08/18/2023 12:11:39 08/18/19 24 08/18/2023 urina lysis , compl ete bilirubin NG negati ve Not Available [facility] ([facility]) [address] [place], [address], 08/18/2023 12:11:39 08/18/19 24 08/18/2023 urina lysis , compl ete ketones NG negati ve Not Available [facility] ([facility]) [address] [place], [address], 08/18/2023 12:11:39 08/18/19 24 08/18/2023 urina lysis , compl ete specific gravity 1.025 1.005- 1.025 Not Available [facility] ([facility]) [address] [place], [address], 08/18/2023 12:11:39 08/18/19 24 08/18/2023 urina lysis , compl ete pH 6.5 5.0-7. 0 Not Available [facility] ([facility]) [address] [place], [address], 08/18/2023 12:11:39 08/18/19 24 08/18/2023 urina lysis , compl ete protein NG Not Available [facility] ([facility]) [address] [place], [address], 08/18/2023 12:11:39 08/18/19 24 08/18/2023 urina lysis , compl ete uro 0.2 Not Available [facility] ([facility]) [address] [place], [address], 08/18/2023 12:11:39 08/18/19 24 08/18/2023 urina lysis , compl ete nitrate positi ve negati ve abnormal Not Available [facility] ([facility]) [address] [place], [address], 08/18/2023 12:11:39 08/18/19 24 08/18/2023 urina lysis , compl ete blood 1+ negati ve abnormal Not Available [facility] ([facility]) [address] [place], [address], 08/18/2023 12:11:39 08/18/19 24 08/18/2023 urina lysis , compl ete leukocytes NG negati ve Not Available [facility] ([facility]) [address] [place], [address], 08/18/2023 12:11:39 08/18/19 24 08/18/2023 urina lysis , compl ete WBC 2-3 0 Not Available [facility] ([facility]) [address] [place], [address], 08/18/2023 12:11:39 08/18/19 24 08/18/2023 urina lysis , compl ete RBC NG 0 Not Available [facility] ([facility]) [address] [place], [address], 08/18/2023 12:11:39 08/18/19 24 08/18/2023 urina lysis , compl ete epi cells 2-3 0 Not Available [facility] ([facility]) [address] [place], [address], 08/18/2023 12:11:39 08/18/19 24 08/18/2023 urina lysis , compl ete bacteria 4++++ mixed boogie abnormal Not Available [facility] ([facility]) [address] [place], [address], 08/18/2023 12:11:39 08/18/19 24 08/18/2023 urina lysis , compl ete other NG Not Available [facility] ([facility]) [address] [place], [address], 08/18/2023 12:11:39 03/13/20 24 03/13/2024 urina lysis , dipst ick Leukocytes Large Not Available [facility] ([facility]) [address] [place], [address], 03/13/2024 10:20:44 03/13/20 24 03/13/2024 urina lysis , dipst ick Nitrite positi ve Not Available [facility] ([facility]) [address] [place], [address], 03/13/2024 10:20:44 03/13/20 24 03/13/2024 urina lysis , dipst ick Urobilinogen .2 Not Available [facility] ([facility]) [address] [place], [address], 03/13/2024 10:20:44 03/13/20 24 03/13/2024 urina lysis , dipst ick Protein Negati ve Not Available [facility] ([facility]) [address] [place], [address], 03/13/2024 10:20:44 03/13/20 24 03/13/2024 urina lysis , dipst ick pH 6.5 Not Available [facility] ([facility]) [address] [place], [address], 03/13/2024 10:20:44 03/13/20 24 03/13/2024 urina lysis , dipst ick Blood Modera te Not Available [facility] ([facility]) [address] [place], [address], 03/13/2024 10:20:44 03/13/20 24 03/13/2024 urina lysis , dipst ick Specific [place] 1.025 Not Available [facility] ( [facility]) [address] [place], [address], 03/13/2024 10:20:44 03/13/20 24 03/13/2024 urina lysis , dipst ick Ketone Negati ve Not Available [facility] ([facility]) [address] [place], [address], 03/13/2024 10:20:44 03/13/20 24 03/13/2024 urina lysis , dipst ick Bilirubin Negati ve Not Available [facility] ([facility]) [address] [place], [address], 03/13/2024 10:20:44 03/13/20 24 03/13/2024 urina lysis , dipst ick Glucose Negati ve Not Available [facility] ([facility]) [address] [place], [address], 03/13/2024 10:20:44 03/13/20 24 03/13/2024 urina lysis , dipst ick Appearance Cloudy Not Available [facility] ([facility]) [address] [place], [address], 03/13/2024 10:20:44 03/13/20 24 03/13/2024 urina lysis , dipst ick Color Yellow Not Available [facility] ([facility]) [address] [place], [address], 03/13/2024 10:20:44 Result Notes None recorded. Problems Name Problem SNOMED Code Status Onset Date Resolution Date Notes Provider Name and Address Organization Details Recorded Time Transient ischemic attack due to embolism 700379315 Active 2022 TIA- January 2022; 023 11:02AM by Hemant Norton, Office Visit; Promote d; acuity set as *; Not Available [facility] 3 03:10:24 Problem Notes None recorded. Procedures Surgical History Date Name Laterality Status Provider Name and Address Organization Details Recorded Time Appendectomy completed BILL DEWITT [facility]jinder 02/08/2023 14:19:59 hysterectomy completed BILL DEWITT [facility], LJoshLJoshCJosh 02/08/2023 14:20:11 Imaging Results None recorded. Procedure Notes None recorded. Medical Equipment None Reported. Allergies Allergen ID Allergen Name Allergen Category Reaction Reaction Severity Criticality Documentation Date Start Date Code Code System Note Provider Name and Address Organization Details Recorded Time 06300 penicilli n G sodium medicatio n swelling Not available Not available 01/22/2023 9900 RxNorm React ion: Swell ing; Comme nt: Recor ded 08/18 11:02 AM by Diallo Norton, Offic e Visit ; Rosita jesus; Nickolas alfaro ce: *; ; Not Available [facility] 3 02:27:16 Medications Name Sig Start Date [...] Updated DateTime 4 160.02 cm 22.7 kg/m2 10174.8 2 g 97.5 [degF] 99 % 99 % 77 /min 90/60 mm[Hg] BILL DEWITT [facility] 4 11:51:18 Date Recorded Body height Body mass index (BMI) Body weight Body temperature Oxygen saturation Oxygen saturation in Arterial blood by Pulse oximetry Heart rate Systolic And Diastolic Provider Name and Address Organization Details Last Updated DateTime 5 160.02 cm 24.1 kg/m2 48231.5 6 g 97.3 [degF] 99 % 99 % 102 /min 112/68 mm[Hg] [facility] 5 15:06:02 Date Recorded Body height Body mass index (BMI) Body weight Body temperature Oxygen saturation Oxygen saturation in Arterial blood by Pulse oximetry Heart rate Systolic And Diastolic Provider Name and Address Organization Details Last Updated DateTime 4 160.02 cm 22.7 kg/m2 26835.8 2 g 97.8 [degF] 98 % 98 % 65 /min 104/72 mm[Hg] [facility] 4 16:21:49 Date Recorded Body height Body mass index (BMI) Body weight Body temperature Oxygen saturation Oxygen saturation in Arterial blood by Pulse oximetry Heart rate Systolic And Diastolic Provider Name and Address Organization Details Last Updated DateTime 4 160.02 cm 23.2 kg/m2 86501.6 g 98.4 [degF] 99 % 99 % 93 /min 100/60 mm[Hg] BILL DEWITT [facility] 4 10:23:29 Date Recorded Body height Body mass index (BMI) Body weight Body temperature Oxygen saturation Oxygen saturation in Arterial blood by Pulse oximetry Heart rate Systolic And Diastolic Provider Name and Address Organization Details Last Updated DateTime 3 160.02 cm 23.4 kg/m2 36217.1 9 g 97.3 [degF] 99 % 99 % 91 /min 114/76 mm[Hg] ANTHONY CONTRERAS [facility] 3 10:37:27 Social History None recorded. Functional Status Question Answer Note LastModified by Organizat ion Details LastModified Time Do you use any illicit or recreational drugs? No [email or web address] Information not available 02/02/2023 Do you or have you ever used any other forms of tobacco or nicotine? Yes [email or web address] Information not available 02/02/2023 What is your level of alcohol consumption? None Information not available 02/02/2023 Do you or have you ever used e-cigarettes or vape? Never used electronic cigarettes [email or web address] Information not available 02/02/2023 Mental Status None recorded. Family History Relationship Description Onset Age of this Age Resolved Age Notes LastModified by Organization Details LastModified Time Mother Anxiety disorder [email or web address] Not available 07/29 11:52:08 Paternal Grandmother Malignant neoplasm of lung [email or web address] Not available 07/29 11:52:23 Medical History Condition Response Coronary Artery Disease N Gout N Other N Kidney Stones N Blood Diseases N Hyperthyroidism N Blood Transfusion N Breast Cancer N COPD N Depression N Lung Disease N Hypothyroidism N Defects or Inherited Disease N Developmental or Behavioral Disorders N Breast Problem N Difficulty Swallowing N Anesthesia Complications N Anxiety Disorder N Meniere's disease N Muscle, Joint, or Bone Problems N Vision or Eye Problems N Arthritis N Infertility N Polyps N Cancer N Stroke N Varicosities N Endometriosis N Bladder or Kidney Problems N High Cholesterol N Liver Disease N Headaches N Fibromyalgia N Kidney Disease N Allergies/Hayfever N Heart Problems N Ear or Hearing Problems Y Hospitalizations N Thyroid Problems N GI Problems N ADD/ADHD N Eating Disorder N Skin Problems N Anemia N Constipation N Mental Illness N Diabetes N Ovarian Cancer N Bedwetting N Seizures/Epilepsy N Tuberculosis N Eczema N Abuse/Domestic Violence N Diverticulitis N Asthma N Reflux/GERD N Hepatitis N Heart Disease N Pulmonary Embolism N Chronic Ear Infections N Pre-Eclampsia N Hypertension N Chicken Pox N Autism Spectrum Disorder (ASD) N Osteoporosis N Thrombophilias N Gynecological History Statement/Question Response Date of Last Pap Smear Obstetrics History GPAL:G 7 P 3 0 0 3 Type Value Full Term 3 Living 3 Total 7 Immunizations Vaccine Type Date Status Note Provider Nam e and Address Organization Details Recorded Time MMR 6 [facility]/02/2023 14:07:23 MMR 4 completed ANTHONY CONTRERAS [facility] 02/02/2023 14:07:23 Hep B, unspecified formulation 6 completed ANTHONY CONTRERAS [facility] 02/02/2023 14:07:23 Hep B, unspecified formulation 5 completed [facility] 02/02/2023 14:07:23 Hep B, unspecified formulation 5 [facility] 02/02/2023 14:07:23 OPV, trivalent 2 completed [facility] 02/02/2023 14:07:23 OPV, trivalent 6 [facility] 02/02/2023 14:07:23 OPV, trivalent 1 completed ANTHONY CONTRERAS null, [facility] 02/02/2023 14:07:23 OPV, trivalent 5 completed ANTHONYMik CONTRERAS null, [facility] 02/02/2023 14:07:23 DTP-Hib 2 completed ANTHONY CONTRERAS null, [facility] 02/02/2023 14:07:23 DTP-Hib 2 completed ANTHONY CONTRERAS null, [facility] 02/02/2023 14:07:23 DTP-Hib 1 completed [facility] 02/02/2023 14:07:23 DTP-Hib 5 completed [facility] 02/02/2023 14:07:23 Influenza, split virus, trivalent, preservative 6 completed Not Available [facility] 03/15/2023 10:32:24 Past Encounters Encounter ID Performer Location Encounter Start Date Encounter Closed Date Diagnosis/Indication Diagnosis SNOMED-CT Code Diagnosis ICD10 Code Diagnosis IMO Codes Diagnosis Note [id number] Daysi Hernandez MD [facility] ([facility]) [address] [place] [phone] 02/02/2023 13:57:02 02/12/2023 14:41:29 Influenza-like symptoms 690700629 R68.89 COVID-19 175401410 U07.1 tested positive today [id number] KEILA VELA PA-C [facility] ([facility]) [address] [place] [phone] 02/04/2023 15:39:52 02/04/2023 16:32:16 Perforation of left tympanic membrane due to otitis media 8505639976 360123 H66.012 f/u with Dr. Hernandez after antibiotic s complete if all symptoms not resolved. [id number] Daysi Hernandez MD [facility] ([facility]) [address] [place] [phone] 02/08/2023 14:01:22 02/14/2023 12:06:17 Perforation of left tympanic membrane due to otitis media 1653385046 198942 H72.92 Appear to be healing over with a thin membrane. reassuranc e. recehck in 1 month. [id number] Daysi Hernandez MD [facility] ([facility]) [address] [place] [phone] 03/15/2023 10:32:00 03/15/2023 12:05:51 Acute bronchitis 73402335 J20.9 vapes [id number] Daysi Hernandez MD [facility] ([facility]) [address] [place] [phone] 08/18/2023 11:47:50 08/18/2023 12:37:01 Unintentional weight loss 896771923 R63.4 was 132 in Feb. only down 4 lbs. had all her teeth removed in November and was on liquid diet - I suspect stomach shrunk and she just has decreased appetite ffrom that. will check some labs. Dysuria 56480806 R30.0 feels like her usual utis Spasmodic movement 84304 6004 R25.3 claps 3 times uncontroll ably. [id number] Daysi Hernandez MD [facility] ([facility]) [address] [place] [phone] 12/22/2023 15:41:51 12/24/2023 20:20:03 Microscopic hematuria 998568641 R31.29 we do not have her urgent care records to know what WBC and blood in her urine meant to them, but I suspect normal indicators of her infection at that time. symptoms resolved. pt to leave urine sample at lab to ensure blood has cleared. [id number] Daysi Hernandez MD [facility] ([facility]) [address] [place] [phone] 03/13/2024 10:15:47 03/13/2024 13:27:12 Acute urinary tract infection [id number] N39.0 Otalgia of left ear [id number] [id number] H92.02 exam wnl today. 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 Health Concerns Section Related Observation LastModified by Organization Detai ls LastModified Time None Recorded Concern Status LastModified by Organization Details LastModified Time None Recorded Advance Directives Directive None Recorded Payers Insurance Date Sequence Insurance Name Policy Number Policy Kessler Covered Member ID Kessler Member ID Guarantor Name 08/28/2024 [facility] (MEDICAID HMO) Dayanna Pires [id number] Dayanna Jamison 08/22/[address] [facility] (MEDICAID HMO) Dayanna Jamison [id number] Dayanna Jamison Notes Date Note Type Note Provider Name and Address Organization Details Recorded Time 3 text/html CoughReported by PatientHPIFor severity, patient reportsworseningbut reportsmoderate. For associated symptoms, patient reportsshortness of breathbut reportsno fever,no chills,no nausea, andno vomiting. For quality, patient reportsdry.ROS as noted in the HPI she vapes, got better from covid then got cough that has been persistent for 2 weeks. no fever. seems to be going around to the kids too. Daysi Hernandez MD [address] [place] [address], [phone], [facility], [facility] 03/15/2023 11:37:43 4 text/html Weight LossReported by PatientHPIFor associated symptoms, patient reportsabdominal painandloss of appetite. For severity, patient reportsamount of weight loss 15, weight loss over 2 months. For quality, patient reportsworsening. For duration, patient reportsgradual onset.ROS as noted in the HPI I think I have a bad utigetting [...] happening, does happen daily Daysi Hernandez MD [address] [place] [address], [phone], [facility] 08/18/2023 12:34:04 4 text/html UTI resolvedshe does not have the symptoms she was havingfinished w abxshe just didnt know what the wbc stuff was all about Daysi Hernandez MD [address] [place] [address], [phone], [facility] 12/24/2023 10:52:32 4 text/html Lower Urinary Tract Symptoms (LUTS)Reported by PatientHPIFor context, patient reportsexcessive fluid intakeandexcessive caffeine intake. For associated symptoms, patient reportsfrequency,dysuria , andurine odorbut reportsno abdominal pain,no groin pain,no pelvic pain,no flank pain,no nausea, andno vomiting. For onset/timing, patient reportsconstant. For duration, patient reports2-3 weeks.ROS as noted in the HPI also left ear is hurting - like it did when she had the tm rupture Daysi Hernandez MD [address] [place] [address], [phone], [facility] 03/13/2024 13:43:03 5 text/html pt has tic syndrome and needs to go back to neurology...she [...] to obtain a job. Daysi Hernandez MD [address] [place] [address], [phone], [facility], .L.Josh 08/23/2024 17:56:31 OBGyn Episode No OBEpisode recorded.
--- NOTE | 2025-04-28 11:45 | ECG_ITS ---
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 Measurements Intervals [place] Rate: 83 P: 62 ME: 177 QRS: 49 QRSD: 75 T: 57 QT: 339 QTc: 400 Interpretive Statements SINUS RHYTHM SEPTAL MYOCARDIAL INFARCTION , OF INDETERMINATE AGE [40+ ms Q WAVE IN V1/V2] Compared to ECG 03/05/2025 09:57:22 Myocardial infarct finding now present Electronically Signed On 04-28-2025 14:06:30 [employer] by Cruz Ledezma M.D. [email or web address]
--- NOTE | 2025-04-28 11:45 | CTR_ITS ---
PROCEDURE INFORMATION: Exam: CTA Head With Contrast, Arteriography Exam date and time: 04/28/2025 12:53 PM Age: 34 years old Clinical indication: Speech disturbance; Additional info: CVA TECHNIQUE: Imaging protocol: Computed tomographic angiography of the head with contrast. Exam focused on the arteries. 3D rendering (Not supervised by radiologist): MIP and/or 3D reconstructed images were created by the technologist. Radiation optimization: All CT scans at this facility use at least one of these dose optimization techniques: automated exposure control; mA and/or kV adjustment per patient size (includes targeted exams where dose is matched to clinical indication); or iterative reconstruction. Contrast material: OMNI 350; Contrast volume: 100 ml; Contrast route: INTRAVENOUS (IV); COMPARISON: CT head thrombolytic [id number] 04/28/2025 12:46 PM RADIATION DOSE METRICS: Total DLP (mGy-cm): 376.29 FINDINGS: ANTERIOR CIRCULATION: Right internal carotid artery: Intracranial segment is patent with no significant stenosis. No aneurysm. Right middle cerebral artery: No occlusion or significant stenosis. No aneurysm. Right anterior cerebral artery: No occlusion or significant stenosis. No aneurysm. Left internal carotid artery: Intracranial segment is patent with no significant stenosis. No aneurysm. Left middle cerebral artery: No occlusion or significant stenosis. No aneurysm. Left anterior cerebral artery: No occlusion or significant stenosis. No aneurysm. POSTERIOR CIRCULATION: Right vertebral artery: No occlusion or significant stenosis. No aneurysm. Left vertebral artery: No occlusion or significant stenosis. No aneurysm. Basilar artery: No occlusion or significant stenosis. No aneurysm. Right posterior cerebral artery: No occlusion or significant stenosis. No aneurysm. Left posterior cerebral artery: No occlusion or significant stenosis. No aneurysm. PROCEDURE INFORMATION: Exam: CTA Neck With Contrast Exam date and time: 04/28/2025 12:53 PM Age: 34 years old Clinical indication: Speech disturbance; Additional info: CVA TECHNIQUE: Imaging protocol: Computed tomographic angiography of the neck with contrast. Exam focused on the cervical segments of the vasculature. 3D rendering (Not supervised by radiologist): MIP and/or 3D reconstructed images were created by the technologist. Radiation optimization: All CT scans at this facility use at least one of these dose optimization techniques: automated exposure control; mA and/or kV adjustment per patient size (includes targeted exams where dose is matched to clinical indication); or iterative reconstruction. Contrast material: OMNI 350; Contrast volume: 100 ml; Contrast route: INTRAVENOUS (IV); COMPARISON: CT head thrombolytic [id number] 04/28/2025 12:46 PM RADIATION DOSE METRICS: Total DLP (mGy-cm): 376.29 FINDINGS: Right common carotid artery: No stenosis. No dissection or occlusion. Right internal carotid artery: No stenosis of the extracranial segment. No dissection or occlusion. Right external carotid artery: No occlusion or stenosis of the origin. Left common carotid artery: No stenosis. No dissection or occlusion. Left internal carotid artery: No stenosis of the extracranial segment. No dissection or occlusion. Left external carotid artery: No occlusion or stenosis of the origin. Right vertebral artery: No stenosis. No dissection or occlusion. Left vertebral artery: No stenosis. No dissection or occlusion. Soft tissues: Normal. No significant soft tissue swelling. Bones/joints: No acute fracture. Lungs: Multiple right upper lobe nodules. The largest measures 6 mm image 10/06. No left upper lobe nodules. CT/CT angio headneck* [id number] IMPRESSION: No large vessel stenosis or occlusion. IMPRESSION: 1. Unremarkable vascular study. 2. Multiple right upper lobe nodules. Consider full CT scan of the chest. REFERENCES: NASCET CRITERIA. The degree of stenosis in the cervical segment of the internal carotid artery is based on NASCET criteria. Normal is no stenosis. Mild is less than 50% stenosis. Moderate is 50-69% stenosis. Severe is 70% to 99% stenosis. Total occlusion is no detectable patent lumen.
--- NOTE | 2025-04-28 11:45 | CTR_ITS ---
PROCEDURE INFORMATION: Exam: CT Head Without Contrast Exam date and time: 04/28/2025 12:46 PM Age: 34 years old Clinical indication: Stroke-like symptoms; Speech disturbance; Additional info: Symptoms of acute stroke TECHNIQUE: Imaging protocol: Computed tomography of the head without contrast. Radiation optimization: All CT scans at this facility use at least one of these dose optimization techniques: automated exposure control; mA and/or kV adjustment per patient size (includes targeted exams where dose is matched to clinical indication); or iterative reconstruction. Other technique: STROKE PROTOCOL was implemented. COMPARISON: MR head wo/w con [id number] 01/23/2025 7:41 AM RADIATION DOSE METRICS: Total DLP (mGy-cm): 831.68 FINDINGS: Brain: Normal. No hemorrhage. Unremarkable white matter. No mass effect. Cerebral ventricles: No ventriculomegaly. Paranasal sinuses: Visualized sinuses are unremarkable. No fluid levels. Mastoid air cells: Visualized mastoid air cells are well aerated. Bones: Unremarkable. No acute fracture. Soft tissues: Unremarkable. CT/CT head thrombolytic [id number] IMPRESSION: No acute intracranial abnormality. ASSESSMENT: ASPECTS (Linnea Stroke Program Early CT Score) is 10.
--- NOTE | 2025-04-28 11:46 | ED_ITS ---
HPI - Neuro Symptoms/Deficit 2 General: Chief Complaint: Altered Mental Status Stated Complaint: stroke like symptoms Time Seen by Provider: 04/28/25 11:44 Source: patient Mode of arrival: ambulatory Limitations: no limitations History of Present Illness: 34-year-old female has had history of mi graines along with seizures states that been having difficulty speaking started 30 minutes ago along with some left leg numbness. Here patient has a stuttering like speech and having problems getting words out. No facial droop or extremity weakness she has been ambulatory. She states she is having a headache as well hx of migraine Associated symptoms: Reports headache(s) Related Data Home Medications ?Medication ?Instructions ?Recorded ?Confirmed acetaminophen 325 mg tablet 325 mg PO QID PRN Fever Or Pain 12/28/24 04/28/25 (Tylenol) Previous Rx's ?Medication ?Instructions ?Recorded albuterol sulfate 90 mcg/actuation 2 puff inhalation Q 6H PRN 04/23/25 aerosol inhaler shortness of breath or wheez ing #8.5 grams piohcchzskrtocq-vuzzedrvhuyapst-AI 5 ml PO Q6H PRN col d symptoms #118 04/23/25 2 mg-30 mg-10 mg/5 mL oral syrup mL (Bromfed DM) Allergies Allergy/AdvReac Type Severity Reaction Status Date / Time Penicillins Allergy anaphylais Verified 04/28/25 11:47 Review of Systems 2 Neuro: Reports: headache(s) PFSH ED 2 PFSH: Surgical History Hx of appendectomy Hx of hysterectomy Family History Denies family history of Diabetes Dementia Cancer Hypertension Social History Smoking and tobacco/nicotine status: never used tobacco/nicotine Alcohol intake: never 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 NIH stroke score 2 NIHSS: Level Of Consciousness - 1a: 0 Level Of Consciousness Questions - 1b: Both Correct Level Of Consciousness Commands - 1c: Both Correct Best Gaze - 2: Normal Visual Blackman - 3: No Visual Loss Facial Palsy - 4: N ormal Motor Arm Right - 5: No Drift Motor Arm Left - 5: No Drift Motor Leg Right - 6: No Drift Motor Leg Left - 6: No Drift Limb Ataxia - 7: A bsent Sensory - 8: Mild To Moderate Loss Best Language - 9: No Aphasia Dysarthia - 10: Severe Dysarthia Extinction And Inattention - 11: 0 Score: Total Score: 3 Physical Exam 2 Const: COMMON NORMALS: patient oriented x3 HENMT: COMMON NORMALS: normocephalic and atraumatic HEAD & SCALP: n ormocephalic and atraumatic Eye: COMMON NORMALS: Equal, round and reactive pupils present and EOMs intact bilaterally PUPIL: Yes Equal, round and reactive pupils present Neck/C-Spine: COMMON NORMALS: full ROM and supple Chest: COMMONS NORMALS: normal inspection of the chest and normal palpation of entire chest wall Resp: COMMON NORMALS: normal respiratory effort, No retractions, No use of accessory muscles and clear to auscultation bilaterally AUSCULTATION: clear to auscultation bilaterally Cardio: COMMON NORMALS: regular rate, regular rhythm and No murmurs present (Cardio) RATE: regular rate RHYTHM: regular rhythm GI: COMMON NORMALS: Normal to inspection, nondistended, normoactive bowel sounds present, Soft to palpation, non-tender and no masses PALPATION: Yes Soft to palpation Extremity: COMMON NORMALS: normal to inspection and full ROM Neuro: COMMON NORMALS: patient oriented x3 and moves all extremities S PEECH: abnormal speech Details: stuttering GAIT: Yes Normal gait present M OTOR EXAM: 5/5 motor strength present throughout Psych: COMMON NORMALS: mental status grossly normal, Normal thought process present and cooperative THOUGHT PROCESS: Normal thought process present Skin: COMMON NORMALS: no rashes or lesions noted and no wounds GENERAL SKIN EXAM: no rashes or lesions noted Course 2 Vital Signs: Vital signs: Vital Signs Temperature 98.1 F 04/28/25 11:41 Pulse Rate 91 04/28/25 11:41 Respiratory Rate 16 04/28/25 11:41 Blood Pressure 135/97 04/28/25 11:41 Pulse Oximetry 100 04/28/25 11:41 Oxygen Delivery Me thod Room Air 04/28/25 11:41 MDM - Neuro Symptoms/Deficit Medical Decision Making Patient presents here with migraine headache along with difficult speaking. Differential includes CVA, intracerebral hemorrhage. Head CT here is normal no signs of bleed. Patient evaluated by neurologist does not believe this is a stroke. Plan believe is likely complex migraine did give her Toradol and her symptoms have completely resolved here her speech is back to normal. Did review her EKG which showed normal sinus rhythm heart rate [address] elevation QRS 75 QTc 379. Blood work is all within normal limits. I did go over these findings with patient she is well-appearing here and stable for discharge she is to follow-up with PCP and return if worsening she understands agrees to plan Medical Records I reviewed the patient's medical records. Lab Data I reviewed the patient's lab results. 04/28/25 12:02 04/28/25 12:[address] 04/28/25 11:45 IMPRESSION: No acute intracranial abnormality. ASSESSMENT: ASPECTS (Linnea Stroke Program Early CT Score) is 10. ADDENDUM: 04/28/25 Alex4 BHAKTI GIMENEZ received the report at 04/28/2025 12:02 PM MANGA ARTIST and had no questions per the radiology product support rep. Head/Neck CTA 04/28/25 11:45 IMPRESSION: No large vessel stenosis or occlusion. IMPRESSION: 1. Unremarkable vascular study. 2. Multiple right upper lobe nodules. Consider full CT scan of the chest. REFERENCES: NASCET CRITERIA. The degree of stenosis in the cervical segment of the internal carotid artery is based on NASCET criteria. Normal is no stenosis. Mild is less than 50% stenosis. Moderate is 50-69% stenosis. Severe is 70% to 99% stenosis. Total occlusion is no detectable patent lumen. Laboratory Results WBC 6.82 10^3/uL (3.29-11.43) 04/28/25 12: RBC 4.82 10^6/uL (3.85-5.65) 04/28/25 12:02 Hgb 12.90 g/dL (11.27-16.99) 04/28/25 12:02 Hct 39.5 % (36-47) 04/28/25 12:02 MCV 82.0 fl (85-98) L 04/28/25 12:02 MCH 26.8 pg (27-33) L 04/28/25 12:02 MCHC 32.7 g/dL (30-55) 04/28/25 12:02 RDW 12.8 % (12.1-15.1) 04/28/25 12:02 Plt Count 236 10^3/cmm (157-399) 04/28/25 12:02 MPV 10.7 fL (7.4-10.4) H 04/28/25 12:02 Neut % (Auto) 66.5 % 04/28/25 12:02 Lymph % (Auto) 25.1 % 04/28/25 12:02 Gilliam % (Auto) 5.0 % 04/28/25 12:02 Eos % (Auto) 2.5 % 04/28/25 12:02 Baso % (Auto) 0.6 % 04/28/25 12:02 Neut # (Auto) 4.54 10^3/uL (1.8-7.7) 04/28/25 12:02 Lymph # (Auto) 1.7 10^3/uL (0.8-4.8) 04/28/25 12:02 Gilliam # (Auto) 0.3 10^3/uL (0.2-0.9) 04/28/25 12:02 Eos # (Auto) 0.2 10^3/uL (0.0-0.8) 04/28/25 12:02 Baso # (Auto) 0.0 10^3/uL (0.0-0.1) 04/28/25 12:02 Nucleated RBC % (auto) 0 % 04/28/25 12:02 Nucleated RBCs # 0.0 /100WBC 04/28/25 12:02 PT 13.30 SECONDS (12.1-14.9) 04/28/25 12:02 INR 0.95 (0.8-1.2) 04/28/25 12:02 APTT 25.6 SECONDS (23.9-36.7) 04/28/25 12:02 Sodium 136 mmol/L (136-145) 04/28/25 12:02 Potassium 3.7 mmol/L (3.5-5.1) 04/28/25 12:02 Chloride 105 mmol/L (98-107) 04/28/25 12:02 Carbon Dioxide 23 mmol/L (22-29) 04/28/25 12:02 Anion Gap 11.7 (5-19) 04/28/25 12:02 BUN 6 mg/dL (6-20) 04/28/25 12:02 Creatinine 0.6 mg/dL (0.5-0.9) 04/28/25 12:02 GFR Calculation 114.4 mL/min (90-130) 04/28/25 12:02 Glucose 100 mg/dL (65-115) 04/28/25 12:02 Calculated Osmolality 280 mOsm/kg (285-295) L 04/28/25 12:02 Calcium 9.0 mg/dL (8.5-10.5) 04/28/25 12:02 Total Bilirubin 0.4 mg/dL (0.15-1.2) 04/28/25 12: AST 11 U/L (0-32) 04/28/25 12:02 ALT 11 U/L (0-33) 04/28/25 12:02 Alkaline Phosphatase 61 U/L (35-105) 04/28/25 12:02 Total Protein 6.3 g/dL (6.6-8.7) L 04/28/25 12:02 Albumin 4.3 g/dL (3.5-5.2) 04/28/25 12:02 Globulin 2.0 g/dL (1.3-4.6) 04/28/25 12:02 HCG, Qual Negative (Negative) 04/28/25 12:02 Urine Color Yellow (Yellow) 04/28/25 12:22 Urine Appearance Clear (CLEAR) 04/28/25 12:22 Urine pH 6.5 (5-7) 04/28/25 12:22 Ur Specific Hart[place]orn 1.028 (1.005-1.030) 04/28/25 12:22 Urine Protein Negative (Negative) 04/28/25 12:22 Urine Glucose (UA) Negative (Normal) 04/28/25 12:22 Urine Ketones Negative (Negative) 04/28/25 12:22 Urine Blood Negative (Negative) 04/28/25 12:22 Urine Nitrate Negative (Negative) 04/28/25 12:22 Urine Bilirubin Negative (Negative) 04/28/25 12:22 Urine Urobilinogen 0.2 mg/dL (Negative) 04/28/25 12:22 Ur Leukocyte Esterase Negative (Negative) 04/28/25 12:22 Urine RBC 0-2 /hpf (0-2) 04/28/25 12:22 Urine WBC 0-5 /hpf (0-5) 04/28/25 12:22 Ur Squamous Epith Cells 0-5 /hpf (0-5) 04/28/25 12:22 Amorphous Sediment Not Reportable 04/28/25 12:22 Urine Bacteria Trace /hpf (NONE) 04/28/25 12:22 Hyaline Casts 0-4 /lpf H 04/28/25 12:22 Urine Opiates Screen Negative ng/mL (Negative) 04/28/25 12:22 Ur Barbiturates Screen Negative ng/mL (Negative) 04/28/25 12:22 Ur Phencyclidine Scrn Negative ng/mL (Negative) 04/28/25 12:22 Ur Amphetamines Screen Negative ng/mL (Negative) 04/28/25 12:22 U Benzodiazepines Scrn Negative ng/mL (Negative) 04/28/25 12:22 Urine Cocaine Screen Negative ng/mL (Negative) 04/28/25 12:22 U Marijuana (THC) Screen Negative ng/mL (Negative) 04/28/25 12:22 All radiology interpretation(s) finalized by discharge EKG Data EKG 1: I personally reviewed and interpreted this EKG as follows: EKG interpretation date: 04/28/25 EKG interpretation time: 12:06 Interpretation: nsr hr [address] elevation qrs 75 qtc 379 Discharge Plan Discharge Patient Disposition: Home Clinical Impression: Migraine Condition: Stable Prescriptions: No Action albuterol sulfate 90 mcg/actuation HFA aerosol inhaler 2 puff inhalation Q6H PRN (Reason: shortness of breath or wheezing) Qty: 8.5 0RF twarmwmqablqxdc-quwaustke-GG [Bromfed DM] 2-30-10 mg/5 mL syrup 5 ml PO Q6H PRN (Reason: cold symptoms) Qty: 118 0RF acetaminophen [Tylenol] 325 mg Tablet 325 mg PO QID PRN (Reason: Fever Or Pain) Discharge Orders: Discharge ED (Routine); Ordered 04/28/25 Ordered By: Bhakti Gimenez Referrals: Daysi Hernandez MD [Primary Care Provider, Family Practice] - 4-7 days Discharge Diet: Advance as tolerated Discharge Activity: Resume usual activity Patient Instructions: Migraine Headache (ED) Print Language: Burkinan Coding Level of Care Code ED [employer] Nurse for Chg Fwshakira
[2025-04-28] MEDS: iohexol 350 mg/mL 500 mL Btl (per mL) IV (12:05)
[2025-04-28 12:08] LABS: Hematocrit 39.5 % (36-47); Hemoglobin 12.90 g/dL (11.27-16.99); Mean Corpuscular HGB Conc 32.7 g/dL (30-55); Mean Corpuscular Hemoglobin 26.8 pg (27-33); Mean Corpuscular Volume 82.0 fl (85-98); Nucleated Red Blood Cells % 0 %; Platelet Count 236 10^3/cmm (157-399); Red Blood Count 4.82 10^6/uL (3.85-5.65); White Blood Count 6.82 10^3/uL (3.29-11.43)
[2025-04-28 12:26] LABS: INR 0.95 (0.8-1.2); Prothrombin Time 13.30 SECONDS (12.1-14.9)
[2025-04-28 12:27] LABS: HCG, Serum Qual Negative (Negative); Partial Thromboplastin Time 25.6 SECONDS (23.9-36.7)
[2025-04-28 12:30] LABS: Alanine Aminotransferase 11 U/L (0-33); Albumin Level 4.3 g/dL (3.5-5.2); Alkaline Phosphatase 61 U/L (35-105); Anion Gap 11.7 (5-19); Aspartate Amino Transferase 11 U/L (0-32); Blood Urea Nitrogen 6 mg/dL (6-20); Calcium 9.0 mg/dL (8.5-10.5); Carbon Dioxide 23 mmol/L (22-29); Chloride 105 mmol/L (98-107); Creatinine Clr Calc Pharmacy 119.1180; Globulin 2.0 g/dL (1.3-4.6); Glucose 100 mg/dL (65-115); Osmolality Calculated 280 mOsm/kg (285-295); Potassium 3.7 mmol/L (3.5-5.1); Sodium 136 mmol/L (136-145); Total Protein 6.3 g/dL (6.6-8.7)
[2025-04-28 12:34] LABS: Glucose Urine UA Negative (Normal); Nitrate Urine Negative (Negative); Specific Gravity, Urine 1.028 (1.005-1.030)
[2025-04-28 12:39] LABS: Add Urine Microscopic? YES
[2025-04-28 12:42] LABS: PCP Screen Urine Negative (Negative)
[2025-04-28 13:46] VITALS: BP 107/74; PULSE 94; O2SAT 100
== END 2025-04-28 13:49 | disposition home or self-care (01) ==
PROVIDERS: Emergency Provider Emergency Medicine; PCP Family Medicine
DX: G43.909 Migraine, unspecified, not intractable, without status migrainosus (principal)
CPT/HCPCS: 36415; 36416; 70450; 70496; 70498; 80053; 80306; 81001; 82962; 84703; 85025; 85610; 85730; 93005; 96374; 99285; J1885

== ENCOUNTER → 2025-05-26 13:31 | Outpatient (BNVA) | payer MEDICAID, SELFPAY | PROVIDERS: PCP Family Medicine; Visit Provider Emergency Medicine | DX: R30.0 Dysuria (principal); N12 Tubulo-interstitial nephritis, not specified as acute or chronic | CPT/HCPCS: 81000; 87077; 87086; 87184 ==